=== PATIENT | female | born 1955 | race Caucasian/White ===

== ENCOUNTER → 2017-09-30 09:05 | Outpatient (CLI) | payer BC, SELFPAY ==
--- NOTE | 2017-09-30 | DI.MG.S_ITS ---
BILATERAL DIGITAL SCREENING MAMMOGRAM 3D/2D WITH CAD: 09/30/2017 CLINICAL: Routine screening. Family history of breast cancer. Comparison is made to exams dated: 08/28/2016 mammogram, 08/28/2015 mammogram, and 08/22/2014 mammogram - [facility]. The tissue of both breasts is predominantly fatty. Current study was also evaluated with a Computer Aided Detection (CAD) system. No significant masses, calcifications, or other findings are seen in either breast. There has been no significant interval change. IMPRESSION: NEGATIVE There is no mammographic evidence of malignancy. A 1 year screening mammogram is recommended. This exam was interpreted at Station ID: [id number]. NOTE: For mammograms, a report in lay terms will be sent to the patient. Approximately 15% of breast malignancies will not be visualized mammographically. In the management of a palpable breast mass, a negative mammogram must not discourage biopsy of a clinically suspicious lesion. Electronically Signed By: Steve kelly/isela:09/30/2017 14:48:54 letter sent: Normal Exam ACR BI-RADS Category 1: Negative 3341F
== END ==
PROVIDERS: PCP Family Medicine; Visit Provider Family Medicine
DX: Z12.31 Encounter for screening mammogram for malignant neoplasm of breast (principal); Z80.3 Family history of malignant neoplasm of breast
CPT/HCPCS: 77063; 77067

== ENCOUNTER → 2017-11-16 08:38 | Outpatient (CLI) | payer BC, SELFPAY ==
[2017-11-16 09:22] LABS: Hematocrit 38.2 % (36-46); Hemoglobin 12.5 g/dL (12.0-16.0); Mean Corpuscular HGB Conc 32.8 % (30-36); Mean Corpuscular Hemoglobin 29.3 PG (26-34); Mean Corpuscular Volume 89.1 fL (80-100); Platelet Count 268 X10^3/uL (150-400); Red Blood Cell Count 4.28 X10^6/uL (4.0-5.2); Red Cell Distribution Width 13.5 % (11.6-14.8)
[2017-11-16 09:36] LABS: BUN Creatinine Ratio 24.4 (6-22); Blood Urea Nitrogen 22 mg/dL (7-17); Calcium 9.1 mg/dL (8.4-10.2); Carbon Dioxide 31 mmol/L (22-32); Chloride 103 mmol/L (98-107); Cholesterol 190 mg/dL (140-199); Estimated Glomerular Filt Rate > 60.0 mL/min (>60); Glucose 91 mg/dL (80-110); HDL Cholesterol 50 mg/dL (40-60); HEMOLYSIS < 15 (0-50); LDL Cholesterol Calculated 121 mg/dL (<100); Potassium 3.9 mmol/L (3.4-5.1); Sodium 145 mmol/L (137-145); Triglycerides 94 mg/dL (35-150)
[2017-11-16 10:23] LABS: Vitamin D 25 Hydroxy (D3) 28.6 ng/mL (30.0-100.0)
== END ==
PROVIDERS: PCP Student in an Organized Health Care Education/Training Program; Visit Provider Student in an Organized Health Care Education/Training Program
DX: Z79.899 Other long term (current) drug therapy (principal)
CPT/HCPCS: 36415; 80048; 80061; 82306; 85027

== ENCOUNTER 2018-04-24 19:09 | Emergency (ER) | payer BC, SELFPAY ==
[2018-04-24 19:46] VITALS: BP 126/87; PULSE 81; RESP 18; TEMP 37.3; O2SAT 100; BMI 30.4
--- NOTE | 2018-04-24 20:31 | ED.ABDPAIN ---
HPI - Abdominal Pain <DELICIA Pop - Last Filed: 04/24/18 22:59> General Chief Complaint: Abdominal Pain Stated Complaint: severe abdominal pain and back pain, nauseous Time Seen by Provider: 04/24/18 20:11 Source: patient Mode of arrival: ambulatory Limitations: no limitations History of Present Illness HPI narrative: 62-year-old female with history of hypertension and GERD here for complaint having pain into her abdomen over the past 2 weeks. She states that the pain is worsened over the past couple of days. Pain is to the right upper quadrant area she denies any trauma to the area. No nausea or vomiting. She does have a decreased appetite. She denies any stressors or relievers of her discomfort. She denies any urinary symptoms. Last bowel movement was earlier today and was unremarkable. No flank pain. She does state that the pain sometimes radiates to her back area. MD complaint: abdominal pain Related Data Previous Rx's Medication Instructions Recorded olmesartan 40 1 tab PO DAILY #90 tab 04/22/18 mg-hydrochlorothiazide 25 mg tablet pantoprazole 40 mg tablet,delayed 40 mg PO DAILY #90 tab 04/22/18 release Allergies Allergy/AdvReac Type Severity Reaction Status Date / Time cefuroxime [From Ceftin] Allergy rash, Verified 04/24/18 19:45 irregular heart rhythm Review of Systems <DELICIA Pop - Last Filed: 04/24/18 22:59> Constitutional Denies chills, Denies fever(s), Denies lethargy and Denies weakness Eyes Denies change in vision, Denies eye discharge, Denies irritation and Denies loss of vision ENT Ears, Nose, Mouth, and Throat: Denies throat swelling Cardiovascular Denies chest pain, Denies irregular heart rhythm, Denies lightheadedness, Denies palpitations and Denies orthopnea Respiratory Denies wheezing Gastrointestinal Comments: Right uppe Genitourinary Denies hematuria, Denies flank pain, Denies urinary incontinence and Denies urinary urgency Integumentary/Breasts Denies pruritus, Denies erythema, Denies rash and Denies wounds Neurologic Denies confusion, Denies loss of vision and Denies weakness Psychiatric Denies anxiety, Denies confusion, Denies depression, Denies homicidal ideation and Denies suicidal ideation Endocrine Denies palpitations Hematologic/Lymphatic Denies easy bruising Allergic/Immunologic Denies urticaria, Denies throat swelling and Denies wheezing PFSH <DELICIA Pop - Last Filed: 04/24/18 22:59> Medical History Hypertension (Chronic) Obesity (BMI 30.0-34.9) (Chronic) Perez esophagus (Chronic) Perez's esophagus (Chronic 2016) GERD (gastroesophageal reflux disease) (Chronic 1978) Hypertension (Chronic ~2000) Perez's esophagus (Inactive ~2016) Barretts esophagus (Inactive ~2016) Bladder prolapse (Inactive ~2010) GERD (gastroesophageal reflux disease) (Inactive ~1978) GERD (gastroesophageal reflux disease) (Inactive ~1978) HTN (hypertension) (Inactive) Hypertension (Inactive) Surgical History History of knee replacement (Resolved 05/2016) Hx of foot surgery (Resolved 09/2016) Hx of knee surgery (Resolved 05/2010) Hx of oophorectomy (Resolved 01/2011) H/O foot surgery (Inactive ~2016) History of bladder surgery (Inactive ~01/2011) History of knee replacement (Inactive ~05/2016) History of knee replacement (Inactive ~2016) History of knee surgery (Inactive ~05/2010) Hx of foot surgery (Inactive ~09/2016) Family History Father Heart disease Hypertension Mother Cancer Hypertension Social History marital status: household members: spouse education level: high school travel history: recurrent seatbelt use: always water heater temp set < 120 deg: Yes working smoke detector in home: Yes fire extinguisher in home: Yes carbon monox detector in home: Yes firearms in home: Yes do you feel safe at home: Yes Smoking Status: Never smoker alcohol intake: current (Rare/occasional) substance use type: does not use well-balanced diet: daily or most days daily servings fruits/ve-4 caffeine: Yes eating out: 1-3 times/week Type(s) of exercise: walking and additional (yard work) frequency: 1-2 times per week duration: 45-60 minutes/day Family History Father Heart disease Hypertension Mother Cancer Hypertension Social History marital status: household members: spouse education level: high school travel history: recurrent seatbelt use: always water heater temp set < 120 deg: Yes working smoke detector in home: Yes fire extinguisher in home: Yes carbon monox detector in home: Yes firearms in home: Yes do you feel safe at home: Yes Smoking Status: Never smoker alcohol intake: current (Rare/occasional) substance use type: does not use well-balanced diet: daily or most days daily servings fruits/ve-4 caffeine: Yes eating out: 1-3 times/week Type(s) of exercise: walking and additional (yard work) frequency: 1-2 times per week duration: 45-60 minutes/day Exam <DELICIA Pop - Last Filed: 04/24/18 22:59> Initial Vital Signs Initial Vital Signs: Vital Signs Temperature 99.1 F 04/24/18 19:46 Pulse Rate 81 04/24/18 19:46 Respiratory Rate 18 04/24/18 19:46 Blood Pressure 126/87 04/24/18 19:46 Pulse Oximetry 100 04/24/18 19:46 Const General: cooperative and well developed Nutritional Appearance: well nourished Orientation: alert, awake, oriented x3 and not confused HENMT Mouth: oral mucosae normal and moist mucous membranes Eyes Conjunctivae: conjunctivae normal Sclera: sclerae normal Pupils: PERRL EOM: EOM intact bilaterally Cardio Rate: regular rate Rhythm: regular rhythm Heart Sounds: no click, no gallops, no murmurs and no rubs Pulses: normal peripheral pulses Skin General: no rashes or lesions noted, No jaundice and No petechiae Neuro General: alert, oriented x3, gait normal and no focal motor deficits Speech: speech normal <Amelie Bowles DO - Last Filed: 04/25/18 03:02> Initial Vital Signs Initial Vital Signs: Vital Signs Temperature 99.1 F 04/24/18 19:46 Pulse Rate 81 04/24/18 19:46 Respiratory Rate 18 04/24/18 19:46 Blood Pressure 126/87 04/24/18 19:46 Pulse Oximetry 100 04/24/18 19:46 Course <DELICIA Pop - Last Filed: 04/24/18 22:59> Orders Ordered: ED Orders 04/24/18 20:38 US abdomen complete Stat 04/24/18 21:04 Complete Blood Count AUTO DIFF Stat Comprehensive Metabolic Panel Stat Lipase Stat 04/24/18 21:23 CT abdomen pelvis w con Stat Discontinued Medications Sodium Chloride (Normal Saline 0.9%) 1,000 mls @ 1,000 mls/hr IV BOLUS ONE Stop: 04/24/18 21:37 Last Infusion: 04/24/18 22:55 Dose: 0 mls/hr Admin: 04/24/18 21:01 Dose: 1,000 mls/hr Vital Signs - 8 hr 04/24/18 19:46 04/24/18 21:10 04/24/18 21:27 Temperature 99.1 F Pulse Rate 81 85 78 Respiratory Rate 18 17 21 Blood Pressure 126/87 Blood Pressure [Right Arm] 128/79 Pulse Oximetry 100 96 100 04/24/18 23:18 Temperature 97.8 F Pulse Rate 77 Respiratory Rate 16 Blood Pressure 132/80 Blood Pressure [Right Arm] Pulse Oximetry 97 <Amelie Bowles DO - Last Filed: 04/25/18 03:02> Orders Ordered: ED Orders 04/24/18 20:38 US abdomen complete Stat 04/24/18 21:04 Complete Blood Count AUTO DIFF Stat Comprehensive Metabolic Panel Stat Lipase Stat 04/24/18 21:23 CT abdomen pelvis w con Stat Discontinued Medications Sodium Chloride (Normal Saline 0.9%) 1,000 mls @ 1,000 mls/hr IV BOLUS ONE Stop: 04/24/18 21:37 Last Infusion: 04/24/18 22:55 Dose: 0 mls/hr Admin: 04/24/18 21:01 Dose: 1,000 mls/hr Vital Signs - 8 hr 04/24/18 19:46 04/24/18 21:10 04/24/18 21:27 Temperature 99.1 F Pulse Rate 81 85 78 Respiratory Rate 18 17 21 Blood Pressure 126/87 Blood Pressure [Right Arm] 128/79 Pulse Oximetry 100 96 100 04/24/18 23:18 Temperature 97.8 F Pulse Rate 77 Respiratory Rate 16 Blood Pressure 132/80 Blood Pressure [Right Arm] Pulse Oximetry 97 MDM - Abdominal Pain <DELICIA Pop - Last Filed: 04/24/18 22:59> Lab Data Result diagrams: 04/24/18 21:04 04/24/18 21:04 Lab Results 04/24/18 04/24/18 Range/Units 21:04 21:04 WBC 8.5 (4.5-11.0) X10^3/uL RBC 4.39 (4.0-5.2) X10^6/uL Hgb 12.7 (12.0-16.0) g/dL Hct 38.9 (36-46) % MCV 88.6 (80-100) fL MCH 29.0 (26-34) PG MCHC 32.7 (30-36) % RDW 13.2 (11.6-14.8) % Plt Count 297 (150-400) X10^3/uL Neut % (Auto) 62.7 (50-75) % Lymph % (Auto) 26.0 (25-40) % Garden % (Auto) 9.6 (3-14) % Eos % (Auto) 1.2 L (2-4) % Baso % (Auto) 0.5 (0-2) % Neut # (Auto) 5300 (4720-5863) /uL Lymph # (Auto) 2200 (5981-6573) /uL Garden # (Auto) 800 (0-900) /uL Eos # (Auto) 100 (0-450) /uL Baso # (Auto) 0 (0-100) /uL Sodium 141 (137-145) mmol/L Potassium 3.9 (3.4-5.1) mmol/L Chloride 101 (98-107) mmol/L Carbon Dioxide 30 (22-32) mmol/L BUN 23 H (7-17) mg/dL Creatinine 0.90 (0.52-1.04) mg/dL Estimated GFR > 60.0 (>60) mL/min BUN/Creatinine Ratio 25.6 H (6-22) Glucose 102 (80-110) mg/dL Calcium 9.7 (8.4-10.2) mg/dL Total Bilirubin 0.3 (0.2-1.3) mg/dL AST 26 (14-36) IU/L ALT 27 (9-52) IU/L Alkaline Phosphatase 76 (38-126) U/L Total Protein 8.0 (6.3-8.2) g/dL Albumin 4.5 (3.5-5.0) g/dL Globulin 3.5 (1.7-4.1) g/dL Albumin/Globulin Ratio 1.3 (1.0-2.8) Lipase 94 (23-300) U/L Point of care testing: Urine Dip Bedside Urine Glucose Negative Bedside Urine Bilirubin - Negative Bedside Urine Ketone - Negative Urine Specific Elizabeth 1.010 Bedside Urine Occult Blood - Negative Bedside Urine pH 6.0 Bedside Urine Protein - Negative Bedside Urine Urobilinogen - Negative Bedside Urine Nitrite - Negative Bedside Urine Leukocytes - Negative Esterase Imaging Data US - abdomen: Radiologist's impression: [address] [place] [id number] Ultrasound Report Signed Patient: Trini Diaz LMR#: [id number] : 4Acct:[id number] Age/Sex: 62 / FDate of Service: 04/24/18 Loc: ED Accession Number: [id number] Procedure: US abdomen complete Ordering Provider: Nick Haney PROCEDURE: US ABDOMEN COMPLETE INDICATIONS: RIGHT UPPER QUADRANT PAIN TECHNIQUE: Real-time scanning was performed of the abdominal and retroperitoneal organs, with image documentation. COMPARISON: None. FINDINGS: Liver: Liver is normal in size and homogeneous in echotexture. Gallbladder: Within normal limits Biliary ducts: Intrahepatic bile ducts are non-dilated. Extrahepatic bile duct caliber measures 3.7 mm. Normal is 6-7 mm or less in diameter, or 10 mm or less post-cholecystectomy. Pancreas: Visualized portions of the pancreas are sonographically normal. Spleen: Spleen is normal in size and homogeneous in echotexture. Kidneys: Kidneys are normal in size and echotexture. Right kidney measures 10.3 cm long; left kidney measures 10.0 cm long. No hydronephrosis. 7 mm calculus within the inferior pole of the right kidney. No solid masses. Aorta: Visualized aorta is normal in caliber at less than 3 cm. Iliacs: Proximal common iliac arteries are normal in caliber at less than 2.5 cm. IVC: Intrahepatic inferior vena cava is patent. Miscellaneous: No free abdominal fluid. IMPRESSION: 1. No acute process. 2. Nonobstructing right renal calculus. Dictated by: Rosa Singh M.D. on 04/24/2018 at 21:47 Approved by: Rosa Singh M.D. on 04/24/2018 at 21:48 MDM Narrative Medical decision making narrative: CBC was obtained and was unremarkable. chemistry panel was also obtained and was also Unremarkable. Lipase was normal. Abdominal ultrasound was obtained and was negative for any acute findings. Urinalysis Is negative for urinary tract infection or blood. CT the abdomen was obtained and plan number reason shows no significant abnormalities. Signs is presents as abdominal wall pain. [id number] Tylenol as needed for any discomfort. Follow up with primary care provider. Return emergency room for worsening symptoms. <Amelie Bowles DO - Last Filed: 04/25/18 03:02> Lab Data Lab Results 04/24/18 04/24/18 Range/Units 21:04 21:04 WBC 8.5 (4.5-11.0) X10^3/uL RBC 4.39 (4.0-5.2) X10^6/uL Hgb 12.7 (12.0-16.0) g/dL Hct 38.9 (36-46) % MCV 88.6 (80-100) fL MCH 29.0 (26-34) PG MCHC 32.7 (30-36) % RDW 13.2 (11.6-14.8) % Plt Count 297 (150-400) X10^3/uL Neut % (Auto) 62.7 (50-75) % Lymph % (Auto) 26.0 (25-40) % Garden % (Auto) 9.6 (3-14) % Eos % (Auto) 1.2 L (2-4) % Baso % (Auto) 0.5 (0-2) % Neut # (Auto) 5300 (4541-6095) /uL Lymph # (Auto) 2200 (6735-8407) /uL Garden # (Auto) 800 (0-900) /uL Eos # (Auto) 100 (0-450) /uL Baso # (Auto) 0 (0-100) /uL Sodium 141 (137-145) mmol/L Potassium 3.9 (3.4-5.1) mmol/L Chloride 101 (98-107) mmol/L Carbon Dioxide 30 (22-32) mmol/L BUN 23 H (7-17) mg/dL Creatinine 0.90 (0.52-1.04) mg/dL Estimated GFR > 60.0 (>60) mL/min BUN/Creatinine Ratio 25.6 H (6-22) Glucose 102 (80-110) mg/dL Calcium 9.7 (8.4-10.2) mg/dL Total Bilirubin 0.3 (0.2-1.3) mg/dL AST 26 (14-36) IU/L ALT 27 (9-52) IU/L Alkaline Phosphatase 76 (38-126) U/L Total Protein 8.0 (6.3-8.2) g/dL Albumin 4.5 (3.5-5.0) g/dL Globulin 3.5 (1.7-4.1) g/dL Albumin/Globulin Ratio 1.3 (1.0-2.8) Lipase 94 (23-300) U/L Point of care testing: Urine Dip Bedside Urine Glucose Negative Bedside Urine Bilirubin - Negative Bedside Urine Ketone - Negative Urine Specific Elizabeth 1.010 Bedside Urine Occult Blood - Negative Bedside Urine pH 6.0 Bedside Urine Protein - Negative Bedside Urine Urobilinogen - Negative Bedside Urine Nitrite - Negative Bedside Urine Leukocytes - Negative Esterase Discharge Plan Departure Patient Disposition: Home Clinical Impression: Abdominal wall pain Discharge Date/Time: 04/24/18 23:19 Interventions: ED Discharge Assessment Last Done: 04/24/18 23:18 Instructions: DI for Abdominal Pain-Adult Activity Restrictions/Additional Instructions: laboratory results and imaging today were unremarkable. Signs and symptoms presents as abdominal wall pain. Use [id number] Tylenol as needed for any discomfort. Rest area. Follow up with primary care provider. Return emergency room for worsening symptoms. Prescriptions: No Action pantoprazole 40 mg tablet,delayed release (DR/EC) 40 mg PO DAILY Qty: 90 RF: 3 olmesartan-hydrochlorothiazide [Benicar HCT] 40-25 mg tablet 1 tab PO DAILY Qty: 90 RF: 3 Referrals: Dudley Bass MD [Primary Care Provider] - <Amelie Bowles DO - Last Filed: 04/25/18 03:02> Cosign ED Attending Cosignature Attestation: I was immediately available in the department for consultation. Documentation has been reviewed. I agree with assessment and plan.
--- NOTE | 2018-04-24 20:38 | DI.US.S_ITS ---
PROCEDURE: US ABDOMEN COMPLETE INDICATIONS: RIGHT UPPER QUADRANT PAIN TECHNIQUE: Real-time scanning was performed of the abdominal and retroperitoneal organs, with image documentation. COMPARISON: None. FINDINGS: Liver: Liver is normal in size and homogeneous in echotexture. Gallbladder: Within normal limits Biliary ducts: Intrahepatic bile ducts are non-dilated. Extrahepatic bile duct caliber measures 3.7 mm. Normal is 6-7 mm or less in diameter, or 10 mm or less post-cholecystectomy. Pancreas: Visualized portions of the pancreas are sonographically normal. Spleen: Spleen is normal in size and homogeneous in echotexture. Kidneys: Kidneys are normal in size and echotexture. Right kidney measures 10.3 cm long; left kidney measures 10.0 cm long. No hydronephrosis. 7 mm calculus within the inferior pole of the right kidney. No solid masses. Aorta: Visualized aorta is normal in caliber at less than 3 cm. Iliacs: Proximal common iliac arteries are normal in caliber at less than 2.5 cm. IVC: Intrahepatic inferior vena cava is patent. Miscellaneous: No free abdominal fluid. IMPRESSION: 1. No acute process. 2. Nonobstructing right renal calculus. Dictated by: Rosa Singh M.D. on 04/24/2018 at 21:47 Approved by: Rosa Singh M.D. on 04/24/2018 at 21:48
[2018-04-24] MEDS: SODIUM CHLORIDE 0.9% 1,000 ML 1000 ML IV (21:01)
[2018-04-24 21:09] LABS: Add Manual Diff / Slide Review NO; Basophils Absolute Auto 0 /uL (0-100); Basophils Percent Auto 0.5 % (0-2); Eosinophils Absolute Auto 100 /uL (0-450); Eosinophils Percent Auto 1.2 % (2-4); Hematocrit 38.9 % (36-46); Hemoglobin 12.7 g/dL (12.0-16.0); Lymphocytes Absolute Auto 2200 /uL (1100-4500); Mean Corpuscular HGB Conc 32.7 % (30-36); Mean Corpuscular Volume 88.6 fL (80-100); Monocytes Absolute Auto 800 /uL (0-900); Monocytes Percent Auto 9.6 % (3-14); Neutrophils Absolute Auto 5300 /uL (1500-7000); Neutrophils Percent Auto 62.7 % (50-75); Platelet Count 297 X10^3/uL (150-400); Red Blood Cell Count 4.39 X10^6/uL (4.0-5.2); Red Cell Distribution Width 13.2 % (11.6-14.8); White Blood Cell Count 8.5 X10^3/uL (4.5-11.0)
[2018-04-24 21:10] VITALS: PULSE 85; RESP 17; O2SAT 96
[2018-04-24 21:16] LABS: Alanine Aminotransferase 27 IU/L (9-52); Albumin 4.5 g/dL (3.5-5.0); Albumin Globulin Ratio 1.3 (1.0-2.8); Alkaline Phosphatase 76 U/L (38-126); Aspartate Aminotransferase 26 IU/L (14-36); BUN Creatinine Ratio 25.6 (6-22); Bilirubin Total 0.3 mg/dL (0.2-1.3); Blood Urea Nitrogen 23 mg/dL (7-17); Calcium 9.7 mg/dL (8.4-10.2); Carbon Dioxide 30 mmol/L (22-32); Chloride 101 mmol/L (98-107); Estimated Glomerular Filt Rate > 60.0 mL/min (>60); Globulin 3.5 g/dL (1.7-4.1); Glucose 102 mg/dL (80-110); HEMOLYSIS < 15 (0-50); Lipase 94 U/L (23-300); Potassium 3.9 mmol/L (3.4-5.1); Sodium 141 mmol/L (137-145)
--- NOTE | 2018-04-24 21:23 | DI.CT.S_ITS ---
PROCEDURE: CT ABDOMEN PELVIS W CON INDICATIONS: Right upper quadrant pain TECHNIQUE: After the administration of intravenous contrast, 5 mm thick sections acquired from the diaphragm to the symphysis. 5 mm coronal and sagittal reformats were acquired. For radiation dose reduction, the following was used: automated exposure control, adjustment of mA and/or kV according to patient size. COMPARISON: [facility], , US ABDOMEN COMPLETE, 04/24/2018, 21:09. FINDINGS: Image quality: Excellent. ABDOMEN: Lung bases: Lung bases are clear. Heart size is normal. Small hiatal hernia. Solid organs: Liver is normal in size and enhancement. Gallbladder is normal. Biliary system is non dilated. Pancreas enhances normally. Spleen is normal in size and enhancement. No adrenal nodules. Kidneys demonstrate normal size and enhancement, without hydronephrosis. Peritoneum and bowel: Bowel loops demonstrate normal wall thickness and caliber. There are numerous scattered colonic diverticula in sigmoid colon. No free fluid or air. Nodes and vessels: No retroperitoneal or mesenteric adenopathy by size criteria. Aorta and inferior vena cava are normal in size. Miscellaneous: No ventral hernias. PELVIS: Genitourinary: Bladder wall thickness is normal. Uterus is normal. No adnexal mass. No pathologic free fluid. Miscellaneous: No inguinal hernias or adenopathy. Bones: No suspicious bony lesions. No vertebral body compression fractures. IMPRESSION: 1. No acute intra-abdominal process. 2. Small hiatal hernia. 3. Sigmoid diverticulosis without acute diverticulitis. No significant discrepancy with the information technology security manager radiology preliminary report. Dictated by: Neo Terrazas M.D. on 04/25/2018 at 7:54 Approved by: Neo Terrazas M.D. on 04/25/2018 at 17:48
[2018-04-24 21:27] VITALS: BP 128/79; PULSE 78; RESP 21; O2SAT 100
--- NOTE | 2018-04-24 22:39 | ED_ITS ---
HPI - Abdominal Pain <DELICIA Pop - Last Filed: 04/24/18 22:59> General Chief Complaint: Abdominal Pain Stated Complaint: severe abdominal pain and back pain, nauseous Time Seen by Provider: 04/24/18 20:11 Source: patient Mode of arrival: ambulatory Limitations: no limitations History of Present Illness HPI narrative: 62-year-old female with history of hypertension and GERD here for complaint having pain into her abdomen over the past 2 weeks. She states that the pain is worsened over the past couple of days. Pain is to the right upper quadrant area she denies any trauma to the area. No nausea or vomiting. She does have a decreased appetite. She denies any stressors or relievers of her discomfort. She denies any urinary symptoms. Last bowel movement was earlier today and was unremarkable. No flank pain. She does state that the pain sometimes radiates to her back area. MD complaint: abdominal pain Related Data Previous Rx's Medication Instructions Recorded olmesartan 40 1 tab PO DAILY #90 tab 04/22/18 mg-hydrochlorothiazide 25 mg tablet pantoprazole 40 mg tablet,delayed 40 mg PO DAILY #90 tab 04/22/18 release Allergies Allergy/AdvReac Type Severity Reaction Status Date / Time cefuroxime [From Ceftin] Allergy rash, Verified 04/24/18 19:45 irregular heart rhythm Review of Systems <DELICIA Pop - Last Filed: 04/24/18 22:59> Constitutional Denies chills, Denies fever(s), Denies lethargy and Denies weakness Eyes Denies change in vision, Denies eye discharge, Denies irritation and Denies loss of vision ENT Ears, Nose, Mouth, and Throat: Denies throat swelling Cardiovascular Denies chest pain, Denies irregular heart rhythm, Denies lightheadedness, Denies palpitations and Denies orthopnea Respiratory Denies wheezing Gastrointestinal Comments: Right uppe Genitourinary Denies hematuria, Denies flank pain, Denies urinary incontinence and Denies urinary urgency Integumentary/Breasts Denies pruritus, Denies erythema, Denies rash and Denies wounds Neurologic Denies confusion, Denies loss of vision and Denies weakness Psychiatric Denies anxiety, Denies confusion, Denies depression, Denies homicidal ideation and Denies suicidal ideation Endocrine Denies palpitations Hematologic/Lymphatic Denies easy bruising Allergic/Immunologic Denies urticaria, Denies throat swelling and Denies wheezing PFSH <DELICIA Pop - Last Filed: 04/24/18 22:59> Medical History Hypertension (Chronic) Obesity (BMI 30.0-34.9) (Chronic) Perez esophagus (Chronic) Perez's esophagus (Chronic 2016) GERD (gastroesophageal reflux disease) (Chronic 1978) Hypertension (Chronic ~2000) Perez's esophagus (Inactive ~2016) Barretts esophagus (Inactive ~2016) Bladder prolapse (Inactive ~2010) GERD (gastroesophageal reflux disease) (Inactive ~1978) GERD (gastroesophageal reflux disease) (Inactive ~1978) HTN (hypertension) (Inactive) Hypertension (Inactive) Surgical History History of knee replacement (Resolved 05/2016) Hx of foot surgery (Resolved 09/2016) Hx of knee surgery (Resolved 05/2010) Hx of oophorectomy (Resolved 01/2011) H/O foot surgery (Inactive ~2016) History of bladder surgery (Inactive ~01/2011) History of knee replacement (Inactive ~05/2016) History of knee replacement (Inactive ~2016) History of knee surgery (Inactive ~05/2010) Hx of foot surgery (Inactive ~09/2016) Family History Father Heart disease Hypertension Mother Cancer Hypertension Social History marital status: household members: spouse education level: high school travel history: recurrent seatbelt use: always water heater temp set < 120 deg: Yes working smoke detector in home: Yes fire extinguisher in home: Yes carbon monox detector in home: Yes firearms in home: Yes do you feel safe at home: Yes Smoking Status: Never smoker alcohol intake: current (Rare/occasional) substance use type: does not use well-balanced diet: daily or most days daily servings fruits/ve-4 caffeine: Yes eating out: 1-3 times/week Type(s) of exercise: walking and additional (yard work) frequency: 1-2 times per week duration: 45-60 minutes/day Family History Father Heart disease Hypertension Mother Cancer Hypertension Social History marital status: household members: spouse education level: high school travel history: recurrent seatbelt use: always water heater temp set < 120 deg: Yes working smoke detector in home: Yes fire extinguisher in home: Yes carbon monox detector in home: Yes firearms in home: Yes do you feel safe at home: Yes Smoking Status: Never smoker alcohol intake: current (Rare/occasional) substance use type: does not use well-balanced diet: daily or most days daily servings fruits/ve-4 caffeine: Yes eating out: 1-3 times/week Type(s) of exercise: walking and additional (yard work) frequency: 1-2 times per week duration: 45-60 minutes/day Exam <DELICIA Pop - Last Filed: 04/24/18 22:59> Initial Vital Signs Initial Vital Signs: Vital Signs Temperature 99.1 F 04/24/18 19:46 Pulse Rate 81 04/24/18 19:46 Respiratory Rate 18 04/24/18 19:46 Blood Pressure 126/87 04/24/18 19:46 Pulse Oximetry 100 04/24/18 19:46 Const General: cooperative and well developed Nutritional Appearance: well nourished Orientation: alert, awake, oriented x3 and not confused HENMT Mouth: oral mucosae normal and moist mucous membranes Eyes Conjunctivae: conjunctivae normal Sclera: sclerae normal Pupils: PERRL EOM: EOM intact bilaterally Cardio Rate: regular rate Rhythm: regular rhythm Heart Sounds: no click, no gallops, no murmurs and no rubs Pulses: normal peripheral pulses Skin General: no rashes or lesions noted, No jaundice and No petechiae Neuro General: alert, oriented x3, gait normal and no focal motor deficits Speech: speech normal <Amelie Bowles DO - Last Filed: 04/25/18 03:02> Initial Vital Signs Initial Vital Signs: Vital Signs Temperature 99.1 F 04/24/18 19:46 Pulse Rate 81 04/24/18 19:46 Respiratory Rate 18 04/24/18 19:46 Blood Pressure 126/87 04/24/18 19:46 Pulse Oximetry 100 04/24/18 19:46 Course <DELICIA Pop - Last Filed: 04/24/18 22:59> Orders Ordered: ED Orders 04/24/18 20:38 US abdomen complete Stat 04/24/18 21:04 Complete Blood Count AUTO DIFF Stat Comprehensive Metabolic Panel Stat Lipase Stat 04/24/18 21:23 CT abdomen pelvis w con Stat Discontinued Medications Sodium Chloride (Normal Saline 0.9%) 1,000 mls @ 1,000 mls/hr IV BOLUS ONE Stop: 04/24/18 21:37 Last Infusion: 04/24/18 22:55 Dose: 0 mls/hr Admin: 04/24/18 21:01 Dose: 1,000 mls/hr Vital Signs - 8 hr 04/24/18 19:46 04/24/18 21:10 04/24/18 21:27 Temperature 99.1 F Pulse Rate 81 85 78 Respiratory Rate 18 17 21 Blood Pressure 126/87 Blood Pressure [Right Arm] 128/79 Pulse Oximetry 100 96 100 04/24/18 23:18 Temperature 97.8 F Pulse Rate 77 Respiratory Rate 16 Blood Pressure 132/80 Blood Pressure [Right Arm] Pulse Oximetry 97 <Amelie Bowles DO - Last Filed: 04/25/18 03:02> Orders Ordered: ED Orders 04/24/18 20:38 US abdomen complete Stat 04/24/18 21:04 Complete Blood Count AUTO DIFF Stat Comprehensive Metabolic Panel Stat Lipase Stat 04/24/18 21:23 CT abdomen pelvis w con Stat Discontinued Medications Sodium Chloride (Normal Saline 0.9%) 1,000 mls @ 1,000 mls/hr IV BOLUS ONE Stop: 04/24/18 21:37 Last Infusion: 04/24/18 22:55 Dose: 0 mls/hr Admin: 04/24/18 21:01 Dose: 1,000 mls/hr Vital Signs - 8 hr 04/24/18 19:46 04/24/18 21:10 04/24/18 21:27 Temperature 99.1 F Pulse Rate 81 85 78 Respiratory Rate 18 17 21 Blood Pressure 126/87 Blood Pressure [Right Arm] 128/79 Pulse Oximetry 100 96 100 04/24/18 23:18 Temperature 97.8 F Pulse Rate 77 Respiratory Rate 16 Blood Pressure 132/80 Blood Pressure [Right Arm] Pulse Oximetry 97 MDM - Abdominal Pain <DELICIA Pop - Last Filed: 04/24/18 22:59> Lab Data Result diagrams: 04/24/18 21:04 04/24/18 21:04 Lab Results 04/24/18 04/24/18 Range/Units 21:04 21:04 WBC 8.5 (4.5-11.0) X10^3/uL RBC 4.39 (4.0-5.2) X10^6/uL Hgb 12.7 (12.0-16.0) g/dL Hct 38.9 (36-46) % MCV 88.6 (80-100) fL MCH 29.0 (26-34) PG MCHC 32.7 (30-36) % RDW 13.2 (11.6-14.8) % Plt Count 297 (150-400) X10^3/uL Neut % (Auto) 62.7 (50-75) % Lymph % (Auto) 26.0 (25-40) % Wilbarger % (Auto) 9.6 (3-14) % Eos % (Auto) 1.2 L (2-4) % Baso % (Auto) 0.5 (0-2) % Neut # (Auto) 5300 (7058-6795) /uL Lymph # (Auto) 2200 (5695-0272) /uL Wilbarger # (Auto) 800 (0-900) /uL Eos # (Auto) 100 (0-450) /uL Baso # (Auto) 0 (0-100) /uL Sodium 141 (137-145) mmol/L Potassium 3.9 (3.4-5.1) mmol/L Chloride 101 (98-107) mmol/L Carbon Dioxide 30 (22-32) mmol/L BUN 23 H (7-17) mg/dL Creatinine 0.90 (0.52-1.04) mg/dL Estimated GFR > 60.0 (>60) mL/min BUN/Creatinine Ratio 25.6 H (6-22) Glucose 102 (80-110) mg/dL Calcium 9.7 (8.4-10.2) mg/dL Total Bilirubin 0.3 (0.2-1.3) mg/dL AST 26 (14-36) IU/L ALT 27 (9-52) IU/L Alkaline Phosphatase 76 (38-126) U/L Total Protein 8.0 (6.3-8.2) g/dL Albumin 4.5 (3.5-5.0) g/dL Globulin 3.5 (1.7-4.1) g/dL Albumin/Globulin Ratio 1.3 (1.0-2.8) Lipase 94 (23-300) U/L Point of care testing: Urine Dip Bedside Urine Glucose Negative Bedside Urine Bilirubin - Negative Bedside Urine Ketone - Negative Urine Specific Bowie 1.010 Bedside Urine Occult Blood - Negative Bedside Urine pH 6.0 Bedside Urine Protein - Negative Bedside Urine Urobilinogen - Negative Bedside Urine Nitrite - Negative Bedside Urine Leukocytes - Negative Esterase Imaging Data US - abdomen: Radiologist's impression: [address] [place] [id number] Ultrasound Report Signed Patient: Trini Diaz LMR#: [id number] : 4Acct:[id number] Age/Sex: 62 / FDate of Service: 04/24/18 Loc: ED Accession Number: [id number] Procedure: US abdomen complete Ordering Provider: Nick Haney PROCEDURE: US ABDOMEN COMPLETE INDICATIONS: RIGHT UPPER QUADRANT PAIN TECHNIQUE: Real-time scanning was performed of the abdominal and retroperitoneal organs, with image documentation. COMPARISON: None. FINDINGS: Liver: Liver is normal in size and homogeneous in echotexture. Gallbladder: Within normal limits Biliary ducts: Intrahepatic bile ducts are non-dilated. Extrahepatic bile duct caliber measures 3.7 mm. Normal is 6-7 mm or less in diameter, or 10 mm or less post-cholecystectomy. Pancreas: Visualized portions of the pancreas are sonographically normal. Spleen: Spleen is normal in size and homogeneous in echotexture. Kidneys: Kidneys are normal in size and echotexture. Right kidney measures 10.3 cm long; left kidney measures 10.0 cm long. No hydronephrosis. 7 mm calculus within the inferior pole of the right kidney. No solid masses. Aorta: Visualized aorta is normal in caliber at less than 3 cm. Iliacs: Proximal common iliac arteries are normal in caliber at less than 2.5 cm. IVC: Intrahepatic inferior vena cava is patent. Miscellaneous: No free abdominal fluid. IMPRESSION: 1. No acute process. 2. Nonobstructing right renal calculus. Dictated by: Rosa Singh M.D. on 04/24/2018 at 21:47 Approved by: Rosa Singh M.D. on 04/24/2018 at 21:48 MDM Narrative Medical decision making narrative: CBC was obtained and was unremarkable. chemistry panel was also obtained and was also Unremarkable. Lipase was normal. Abdominal ultrasound was obtained and was negative for any acute findings. Urinalysis Is negative for urinary tract infection or blood. CT the abdomen was obtained and plan number reason shows no significant abnormalities. Signs is presents as abdominal wall pain. [id number] Tylenol as needed for any discomfort. Follow up with primary care provider. Return emergency room for worsening symptoms. <Amelie Bowles DO - Last Filed: 04/25/18 03:02> Lab Data Lab Results 04/24/18 04/24/18 Range/Units 21:04 21:04 WBC 8.5 (4.5-11.0) X10^3/uL RBC 4.39 (4.0-5.2) X10^6/uL Hgb 12.7 (12.0-16.0) g/dL Hct 38.9 (36-46) % MCV 88.6 (80-100) fL MCH 29.0 (26-34) PG MCHC 32.7 (30-36) % RDW 13.2 (11.6-14.8) % Plt Count 297 (150-400) X10^3/uL Neut % (Auto) 62.7 (50-75) % Lymph % (Auto) 26.0 (25-40) % Wilbarger % (Auto) 9.6 (3-14) % Eos % (Auto) 1.2 L (2-4) % Baso % (Auto) 0.5 (0-2) % Neut # (Auto) 5300 (7827-6778) /uL Lymph # (Auto) 2200 (9414-8156) /uL Wilbarger # (Auto) 800 (0-900) /uL Eos # (Auto) 100 (0-450) /uL Baso # (Auto) 0 (0-100) /uL Sodium 141 (137-145) mmol/L Potassium 3.9 (3.4-5.1) mmol/L Chloride 101 (98-107) mmol/L Carbon Dioxide 30 (22-32) mmol/L BUN 23 H (7-17) mg/dL Creatinine 0.90 (0.52-1.04) mg/dL Estimated GFR > 60.0 (>60) mL/min BUN/Creatinine Ratio 25.6 H (6-22) Glucose 102 (80-110) mg/dL Calcium 9.7 (8.4-10.2) mg/dL Total Bilirubin 0.3 (0.2-1.3) mg/dL AST 26 (14-36) IU/L ALT 27 (9-52) IU/L Alkaline Phosphatase 76 (38-126) U/L Total Protein 8.0 (6.3-8.2) g/dL Albumin 4.5 (3.5-5.0) g/dL Globulin 3.5 (1.7-4.1) g/dL Albumin/Globulin Ratio 1.3 (1.0-2.8) Lipase 94 (23-300) U/L Point of care testing: Urine Dip Bedside Urine Glucose Negative Bedside Urine Bilirubin - Negative Bedside Urine Ketone - Negative Urine Specific Bowie 1.010 Bedside Urine Occult Blood - Negative Bedside Urine pH 6.0 Bedside Urine Protein - Negative Bedside Urine Urobilinogen - Negative Bedside Urine Nitrite - Negative Bedside Urine Leukocytes - Negative Esterase Discharge Plan Departure Patient Disposition: Home Clinical Impression: Abdominal wall pain Discharge Date/Time: 04/24/18 23:19 Interventions: ED Discharge Assessment Last Done: 04/24/18 23:18 Instructions: DI for Abdominal Pain-Adult Activity Restrictions/Additional Instructions: laboratory results and imaging today were unremarkable. Signs and symptoms presents as abdominal wall pain. Use [id number] Tylenol as needed for any discomfort. Rest area. Follow up with primary care provider. Return emergency room for worsening symptoms. Prescriptions: No Action pantoprazole 40 mg tablet,delayed release (DR/EC) 40 mg PO DAILY Qty: 90 RF: 3 olmesartan-hydrochlorothiazide [Benicar HCT] 40-25 mg tablet 1 tab PO DAILY Qty: 90 RF: 3 Referrals: Dudley Bass MD [Primary Care Provider] - <Amelie Bowles DO - Last Filed: 04/25/18 03:02> Cosign ED Attending Cosignature Attestation: I was immediately available in the depa rtment for consultation. Documentation has been reviewed. I agree with assessment and plan.
[2018-04-24 23:18] VITALS: BP 132/80; PULSE 77; RESP 16; TEMP 36.6; O2SAT 97
== END 2018-04-24 23:19 | disposition home or self-care (01) ==
PROVIDERS: Emergency Provider Nurse Practitioner Family; PCP Student in an Organized Health Care Education/Training Program
DX: R10.9 Unspecified abdominal pain (principal)
CPT/HCPCS: 36591; 74177; 76700; 80053; 81003; 83690; 85025; 96360; 96361; 99283; 99285; Q9967

== ENCOUNTER → 2018-10-03 10:06 | Outpatient (CLI) | payer OTHER, SELFPAY ==
--- NOTE | 2018-10-03 10:10 | DI.MG.S_ITS ---
BILATERAL DIGITAL SCREENING MAMMOGRAM 3D/2D WITH CAD: 10/03/2018 CLINICAL: Routine screening. Family history of breast cancer. Comparison is made to exams dated: 09/30/2017 mammogram - [facility], 08/28/2016 mammogram, and 08/28/2015 mammogram - [facility]. The tissue of both breasts is predominantly fatty. Current study was also evaluated with a Computer Aided Detection (CAD) system. No significant masses, calcifications, or other findings are seen in either breast. There has been no significant interval change. IMPRESSION: NEGATIVE There is no mammographic evidence of malignancy. A 1 year screening mammogram is recommended. This exam was interpreted at Station ID: [id number]. NOTE: For mammograms, a report in lay terms will be sent to the patient. Approximately 15% of breast malignancies will not be visualized mammographically. In the management of a palpable breast mass, a negative mammogram must not discourage biopsy of a clinically suspicious lesion. Electronically Signed By: Domonique taylor/isela:10/03/2018 11:43:45 letter sent: Normal Exam ACR BI-RADS Category 1: Negative 3341F
== END ==
PROVIDERS: PCP Student in an Organized Health Care Education/Training Program; Visit Provider Student in an Organized Health Care Education/Training Program
DX: Z12.31 Encounter for screening mammogram for malignant neoplasm of breast (principal); Z80.3 Family history of malignant neoplasm of breast; Z78.0 Asymptomatic menopausal state; Z91.89 Other specified personal risk factors, not elsewhere classified
CPT/HCPCS: 77063; 77067; 77080

== ENCOUNTER → 2019-08-03 09:25 | Outpatient (CLI) | payer MEDICARE, OTHER, SELFPAY ==
[2019-08-03 10:23] LABS: BUN Creatinine Ratio 25.5 (6-22); Blood Urea Nitrogen 25 mg/dL (7-17); Calcium 9.7 mg/dL (8.4-10.2); Carbon Dioxide 32 mmol/L (22-32); Chloride 102 mmol/L (98-107); Estimated Glomerular Filt Rate 56.8 mL/min (>60); Glucose 86 mg/dL (80-110); HEMOLYSIS < 15 (0-50); Potassium 4.2 mmol/L (3.4-5.1); Sodium 139 mmol/L (137-145)
[2019-08-03 10:38] LABS: Vitamin D 25 Hydroxy (D3) 45.2 ng/mL (30.0-100.0)
== END ==
PROVIDERS: PCP Student in an Organized Health Care Education/Training Program; Referring Provider Student in an Organized Health Care Education/Training Program; Visit Provider Student in an Organized Health Care Education/Training Program
DX: E55.9 Vitamin D deficiency, unspecified (principal); I10 Essential (primary) hypertension
CPT/HCPCS: 36415; 80048; 82306

== ENCOUNTER → 2019-10-05 08:17 | Outpatient (CLI) | payer MEDICARE, OTHER, SELFPAY ==
--- NOTE | 2019-10-05 08:30 | DI.MG.S_ITS ---
Patient Name: ELIZABETH BEDOLLA date: 1955 Sex: F Attending Physician: Shelia Indications: Date: 10/05/2019 08:24 At the request of: VICTORIA ETIENNE Procedure: MM screening mammo BI BILATERAL DIGITAL SCREENING MAMMOGRAM 3D/2D WITH CAD: 10/05/2019 CLINICAL: Routine screening. Family history of breast cancer. Comparison is made to exams dated: 09/30/2017 mammogram, 10/03/2018 mammogram - [facility], 08/28/2016 mammogram, 08/28/2015 mammogram, and 08/22/2014 mammogram - [facility]. The tissue of both breasts is predominantly fatty. Current study was also evaluated with a Computer Aided Detection (CAD) system. No significant masses, calcifications, or other findings are seen in either breast. There has been no significant interval change. IMPRESSION: NEGATIVE There is no mammographic evidence of malignancy. A 1 year screening mammogram is recommended. This exam was interpreted at Station ID: [id number]. NOTE: For mammograms, a report in lay terms will be sent to the patient. Approximately 15% of breast malignancies will not be visualized mammographically. In the management of a palpable breast mass, a negative mammogram must not discourage biopsy of a clinically suspicious lesion. Electronically Signed By: Rudy brady/isela:10/05/2019 10:52:55 letter sent: Normal Exam ACR BI-RADS Category 1: Negative 3341F
== END ==
PROVIDERS: PCP Student in an Organized Health Care Education/Training Program; Referring Provider Student in an Organized Health Care Education/Training Program; Visit Provider Student in an Organized Health Care Education/Training Program
DX: Z12.31 Encounter for screening mammogram for malignant neoplasm of breast (principal); Z80.3 Family history of malignant neoplasm of breast
CPT/HCPCS: 77063; 77067

== ENCOUNTER → 2019-10-20 15:51 | Outpatient (CLI) | payer MEDICARE, OTHER, SELFPAY ==
[2019-10-23 13:15] LABS: COVID19 Sendout Not Detected (Not Detect)
== END ==
PROVIDERS: PCP Student in an Organized Health Care Education/Training Program; Visit Provider Physician Assistant
DX: Z11.59 Encounter for screening for other viral diseases (principal)
CPT/HCPCS: 87635

== ENCOUNTER → 2020-09-03 08:26 | Outpatient (CLI) | payer MEDICARE, OTHER, SELFPAY ==
[2020-09-03 09:36] LABS: BUN Creatinine Ratio 18.8 (6-22); Blood Urea Nitrogen 19 mg/dL (7-17); Calcium 9.4 mg/dL (8.4-10.2); Carbon Dioxide 28 mmol/L (22-32); Chloride 105 mmol/L (98-107); Estimated Glomerular Filt Rate 54.7 mL/min (>60); Glucose 94 mg/dL (80-110); HEMOLYSIS < 15 (0-50); Potassium 4.5 mmol/L (3.4-5.1); Sodium 139 mmol/L (137-145)
== END ==
PROVIDERS: PCP Student in an Organized Health Care Education/Training Program; Referring Provider Student in an Organized Health Care Education/Training Program; Visit Provider Student in an Organized Health Care Education/Training Program
DX: I10 Essential (primary) hypertension (principal)
CPT/HCPCS: 36415; 80048

== ENCOUNTER → 2020-10-16 09:20 | Outpatient (CLI) | payer MEDICARE, OTHER, SELFPAY ==
--- NOTE | 2020-10-16 09:21 | DI.MG.S_ITS ---
BILATERAL DIGITAL SCREENING MAMMOGRAM 3D/2D WITH CAD: 10/16/2020 CLINICAL: Routine screening. Family history of breast cancer. Comparison is made to exams dated: 10/05/2019 mammogram, 10/03/2018 mammogram, and 09/30/2017 mammogram - [facility]. The tissue of both breasts is predominantly fatty. Current study was also evaluated with a Computer Aided Detection (CAD) system. No significant masses, calcifications, or other findings are seen in either breast. There has been no significant interval change. IMPRESSION: NEGATIVE There is no mammographic evidence of malignancy. A 1 year screening mammogram is recommended. This exam was interpreted at Station ID: [id number]. NOTE: For mammograms, a report in lay terms will be sent to the patient. Approximately 15% of breast malignancies will not be visualized mammographically. In the management of a palpable breast mass, a negative mammogram must not discourage biopsy of a clinically suspicious lesion. Electronically Signed By: Dimas Perdue acr/penrad:10/16/2020 11:37:55 letter sent: Normal Exam ACR BI-RADS Category 1: Negative 3341F
== END ==
PROVIDERS: PCP Student in an Organized Health Care Education/Training Program; Referring Provider Student in an Organized Health Care Education/Training Program; Visit Provider Student in an Organized Health Care Education/Training Program
DX: Z80.3 Family history of malignant neoplasm of breast (principal); Z12.31 Encounter for screening mammogram for malignant neoplasm of breast; M85.851 Other specified disorders of bone density and structure, right thigh; Z78.0 Asymptomatic menopausal state; Z90.722 Acquired absence of ovaries, bilateral; Z82.62 Family history of osteoporosis
CPT/HCPCS: 77063; 77067; 77080

== ENCOUNTER → 2021-01-20 11:35 | Outpatient (CLI) | payer MEDICARE, OTHER, SELFPAY | PROVIDERS: PCP Student in an Organized Health Care Education/Training Program; Visit Provider Nurse Practitioner Family | DX: R30.0 Dysuria (principal) | CPT/HCPCS: 87077; 87086; 87186 ==

== ENCOUNTER → 2021-01-27 08:30 | Outpatient (CLI) | payer MEDICARE, OTHER, SELFPAY | PROVIDERS: PCP Student in an Organized Health Care Education/Training Program; Visit Provider Physician Assistant | DX: R30.0 Dysuria (principal) | CPT/HCPCS: 87077; 87086; 87147; 87186 ==

== ENCOUNTER → 2021-02-03 09:47 | Outpatient (CLI) | payer MEDICARE, OTHER, SELFPAY | PROVIDERS: PCP Student in an Organized Health Care Education/Training Program; Visit Provider Physician Assistant | DX: R30.0 Dysuria (principal) | CPT/HCPCS: 87086; 87210 ==

== ENCOUNTER → 2021-03-03 10:40 | Outpatient (CLI) | payer MEDICARE, OTHER, SELFPAY | PROVIDERS: PCP Student in an Organized Health Care Education/Training Program; Referring Provider Physician Assistant; Visit Provider Physician Assistant | DX: N39.0 Urinary tract infection, site not specified (principal) | CPT/HCPCS: 87086 ==

== ENCOUNTER → 2021-05-01 10:25 | Outpatient (CLI) | payer MEDICARE, OTHER, SELFPAY ==
[2021-05-01 11:40] LABS: Appearance Urine UA CLEAR; Bilirubin Urine UA NEGATIVE (NEGATIVE); Color Urine UA YELLOW; Glucose Urine UA NEGATIVE (Negative); Ketones Urine UA NEGATIVE (NEGATIVE); Leukocyte Esterase Urine UA TRACE (NEGATIVE); Nitrite Urine UA NEGATIVE (Negative); Occult Blood Urine UA NEGATIVE (Negative); Protein Urine UA NEGATIVE (Negative); Specific Gravity Urine UA <=1.005 (1.000-1.035); Urobilinogen Urine UA 0.2 E.U./dL (0.2)
[2021-05-01 11:48] LABS: Bacteria Urine None Seen; RBC Urine None Seen (0-5/HPF); Squamous Epithelial Cell Urine 5-10 /HPF (0-5/HPF); WBC Urine 0-1/HPF (0-5/HPF)
== END ==
PROVIDERS: PCP Student in an Organized Health Care Education/Training Program; Referring Provider Obstetrics & Gynecology; Visit Provider Obstetrics & Gynecology
DX: R31.9 Hematuria, unspecified (principal); R35.89 Other polyuria; R39.15 Urgency of urination
CPT/HCPCS: 81001; 87086

== ENCOUNTER → 2021-05-04 09:33 | Outpatient (CLI) | payer MEDICARE, OTHER, SELFPAY | PROVIDERS: PCP Student in an Organized Health Care Education/Training Program; Visit Provider Physician Assistant | DX: N39.0 Urinary tract infection, site not specified (principal) | CPT/HCPCS: 87077; 87086; 87147 ==

== ENCOUNTER → 2021-06-06 08:07 | Outpatient (CLI) | payer MEDICARE, OTHER, SELFPAY | PROVIDERS: PCP Student in an Organized Health Care Education/Training Program; Referring Provider Obstetrics & Gynecology; Visit Provider Obstetrics & Gynecology | DX: N39.0 Urinary tract infection, site not specified (principal); B95.8 Unspecified staphylococcus as the cause of diseases classified elsewhere | CPT/HCPCS: 87086 ==

== ENCOUNTER → 2021-08-06 15:56 | Outpatient (CLI) | payer MEDICARE, OTHER, SELFPAY ==
[2021-08-06 17:00] LABS: BUN Creatinine Ratio 18.3 (6-22); Blood Urea Nitrogen 24 mg/dL (7-17); Calcium 9.4 mg/dL (8.4-10.2); Carbon Dioxide 30 mmol/L (22-32); Chloride 102 mmol/L (98-107); Estimated Glomerular Filt Rate 44 mL/min (>60); Glucose 97 mg/dL (80-110); HEMOLYSIS < 15 (0-50); Potassium 4.5 mmol/L (3.4-5.1); Sodium 139 mmol/L (137-145)
== END ==
PROVIDERS: PCP Student in an Organized Health Care Education/Training Program; Referring Provider Student in an Organized Health Care Education/Training Program; Visit Provider Student in an Organized Health Care Education/Training Program
DX: I10 Essential (primary) hypertension (principal)
CPT/HCPCS: 36415; 80048

== ENCOUNTER → 2021-08-29 08:08 | Outpatient (CLI) | payer MEDICARE, OTHER, SELFPAY ==
[2021-08-29 10:33] LABS: Blood Urea Nitrogen 18 mg/dL (7-17); Calcium 8.8 mg/dL (8.4-10.2); Carbon Dioxide 25 mmol/L (22-32); Chloride 108 mmol/L (98-107); Estimated Glomerular Filt Rate > 60 mL/min (>60); Glucose 70 mg/dL (80-110); HEMOLYSIS < 15 (0-50); Potassium 4.4 mmol/L (3.4-5.1); Sodium 140 mmol/L (137-145)
== END ==
PROVIDERS: PCP Student in an Organized Health Care Education/Training Program; Referring Provider Student in an Organized Health Care Education/Training Program; Visit Provider Student in an Organized Health Care Education/Training Program
DX: N17.9 Acute kidney failure, unspecified (principal)
CPT/HCPCS: 36415; 80048

== ENCOUNTER → 2021-10-20 11:04 | Outpatient (CLI) | payer MEDICARE, OTHER, SELFPAY ==
--- NOTE | 2021-10-20 11:06 | DI.MG.S_ITS ---
BILATERAL DIGITAL SCREENING MAMMOGRAM 3D/2D WITH CAD: 10/20/2021 CLINICAL: Routine screening. Family history of breast cancer. Comparison is made to exams dated: 10/16/2020 mammogram, 10/05/2019 mammogram, and 10/03/2018 mammogram - [facility]. Both breasts are almost entirely fatty (category a/<25% glandular tissue). Current study was also evaluated with a Computer Aided Detection (CAD) system. No significant masses, calcifications, or other findings are seen in either breast. There has been no significant interval change. IMPRESSION: NEGATIVE There is no mammographic evidence of malignancy. A 1 year screening mammogram is recommended. Based on the Tyrer Cuzick model (a risk assessment model) the patient's lifetime risk is 7.1% and her 10 year risk is 3.9%. According to the ACR, ACS, and NCCN guidelines, an annual breast MRI exam along with mammogram is recommended if the patient's lifetime risk is 20% or greater. This exam was interpreted at Station ID: [id number]. NOTE: For mammograms, a report in lay terms will be sent to the patient. Approximately 15% of breast malignancies will not be visualized mammographically. In the management of a palpable breast mass, a negative mammogram must not discourage biopsy of a clinically suspicious lesion. Electronically Signed By: Jared mantilla/isela:10/20/2021 13:26:06 letter sent: Normal Exam ACR BI-RADS Category 1: Negative 3341F
== END ==
PROVIDERS: PCP Student in an Organized Health Care Education/Training Program; Referring Provider Student in an Organized Health Care Education/Training Program; Visit Provider Student in an Organized Health Care Education/Training Program
DX: Z12.31 Encounter for screening mammogram for malignant neoplasm of breast (principal); Z80.3 Family history of malignant neoplasm of breast
CPT/HCPCS: 77063; 77067

== ENCOUNTER 2021-11-02 00:28 | Emergency (ER) | payer MEDICARE, OTHER, SELFPAY ==
[2021-11-02 00:31] VITALS: BP 178/80; PULSE 76; RESP 18; TEMP 36.2; O2SAT 100; BMI 29.0
[2021-11-02 01:03] VITALS: BP 162/79; PULSE 81; RESP 20; O2SAT 98
[2021-11-02 01:07] LABS: Add Manual Diff / Slide Review NO; Basophils Absolute Auto 0 /uL (0-100); Basophils Percent Auto 0.4 % (0-2); Eosinophils Absolute Auto 300 /uL (0-450); Eosinophils Percent Auto 3.2 % (2-4); Hematocrit 36.2 % (36-46); Hemoglobin 12.1 g/dL (12.0-16.0); Lymphocytes Absolute Auto 2400 /uL (1100-4500); Mean Corpuscular HGB Conc 33.6 % (30-36); Mean Corpuscular Hemoglobin 29.1 PG (26-34); Mean Corpuscular Volume 86.7 fL (80-100); Monocytes Absolute Auto 800 /uL (0-900); Monocytes Percent Auto 9.3 % (3-14); Neutrophils Absolute Auto 5100 /uL (1500-7000); Neutrophils Percent Auto 59.1 % (50-75); Platelet Count 242 X10^3/uL (150-400); Red Blood Cell Count 4.17 X10^6/uL (4.0-5.2); Red Cell Distribution Width 13.3 % (11.6-14.8); White Blood Cell Count 8.6 X10^3/uL (4.5-11.0)
[2021-11-02 01:15] LABS: Alanine Aminotransferase 93 IU/L (<35); Albumin 3.9 g/dL (3.5-5.0); Albumin Globulin Ratio 1.3 (1.0-2.8); Alkaline Phosphatase 86 U/L (38-126); Aspartate Aminotransferase 186 IU/L (14-36); BUN Creatinine Ratio 23.4 (6-22); Bilirubin Total 0.3 mg/dL (0.2-1.3); Blood Urea Nitrogen 22 mg/dL (7-17); Carbon Dioxide 26 mmol/L (22-32); Chloride 106 mmol/L (98-107); Estimated Glomerular Filt Rate > 60 mL/min (>60); Globulin 3.1 g/dL (1.7-4.1); Glucose 116 mg/dL (80-110); HEMOLYSIS < 15 (0-50); Lipase 138 U/L (23-300); Potassium 3.7 mmol/L (3.4-5.1); Sodium 138 mmol/L (137-145)
--- NOTE | 2021-11-02 01:51 | PC.NURSE ---
Addendum entered by Braden Chavez R.N. 11/02/21 01:53: Charted in Error on wrong patient. Original Note: Patient suddenly ambulates out of room, yelling at nursing station I got to leave. I have been waiting. You have done nothing. I am in pain. I got to go. Patient encouraged to stay however patient ambulates out of ED.
[2021-11-02] MEDS: PANTOPRAZOLE 40 MG VIAL IV (02:35)
[2021-11-02] MEDS: MAG HYDROX/ALUMINUM/SIMETH SUS 20 ML, LIDOCAINE VISCOUS 2% 15 ML PO (02:36)
--- NOTE | 2021-11-02 03:05 | PC.NURSE ---
Patient denies any relief from GI cocktail and reports continued 8/10 epigastric pain. She denies any nausea or vomiting. No dysuria.
[2021-11-02] MEDS: KETOROLAC 30 MG/ML VIAL 15 MG IV (03:11)
--- NOTE | 2021-11-02 03:15 | ED.ABDPAIN ---
HPI - Abdominal Pain <Taisha Linares DO - Last Filed: 11/03/21 05:28> General Chief Complaint: Abdominal Pain Stated Complaint: RT. SIDE ABD. PAIN Time Seen by Provider: 11/02/21 03:08 Source: patient Mode of arrival: Ambulatory Limitations: no limitations History of Present Illness HPI narrative: This is a 66-year-old female with history of hypertension, GERD and overactive bladder. Patient states she woke up at 11:15 p.m. 11/01/2021 with right upper quadrant pain that woke her from sleep she did have any symptoms earlier. She states no fevers or chills. She is had nausea but no vomiting she felt diaphoretic. She denies any issues such as constipation, diarrhea no black or bloody stools. She is had normal urination with no dysuria urgency or frequency she states pain radiates across to her back. Patient states real chest pain but does feel little bit tight but she states she very anxious, she denies shortness of breath. She denies swelling in her extremities. She is had prior surgery for bladder prolapse and both ovaries removed bilaterally. She is allergic to Ceftin with mouth and airway swelling, no tobacco, occasional alcohol, no illicit. Mom had hypertension unsure history with for her father. She is half siblings 1 of whom had cholecystectomy and appendectomy. Primary care is Dr. Reid. Related Data Previous Rx's Medication Instructions Recorded olmesartan 40 mg tablet 40 mg PO DAILY #90 tabs 08/08/21 trospium 20 mg tablet 20 mg PO QAM AND QHS #60 tabs 10/01/21 pantoprazole 40 mg tablet,delayed 40 mg PO DAILY #90 tabs 10/09/21 release oxycodone-acetaminophen 5 mg-325 1 tab PO Q6H PRN pain #10 tabs 11/02/21 mg tablet Allergies Allergy/AdvReac Type Severity Reaction Status Date / Time cefuroxime [From Ceftin] Allergy rash, Verified 11/02/21 00:31 irregular heart rhythm Review of Systems <Taisha Linares DO - Last Filed: 11/03/21 05:28> Review of Systems ROS Unobtainable: All systems reviewed & are unremarkable except as noted in HPI and below Patient History <Taisha Linares DO - Last Filed: 11/03/21 05:28> Medical History Perez's esophagus (~2016) Constipation by delayed colonic transit GERD (gastroesophageal reflux disease) (1978) Obesity (BMI 30.0-34.9) Postmenopausal atrophic vaginitis Surgical History History of bladder surgery (~01/2011) History of knee replacement (~05/2016) History of knee surgery (~05/2010) Hx of foot surgery (09/2016) Family History Father Heart disease Hypertension Mother Cancer Hypertension Social History marital status: household members: spouse education level: high school travel history: recurrent seatbelt use: always water heater temp set < 120 deg: Yes working smoke detector in home: Yes fire extinguisher in home: Yes carbon monox detector in home: Yes firearms in home: Yes do you feel safe at home: Yes Smoking Status: Never smoker second hand exposure: No alcohol intake: current (a glass of wine once or twice a month.) substance use type: does not use well-balanced diet: daily or most days daily servings fruits/ve-4 caffeine: Yes eating out: 1-3 times/week Type(s) of exercise: walking and additional frequency: 1-2 times per week duration: 45-60 minutes/day Smoking Status: Never smoker alcohol intake frequency: holidays/special occasions only Substance Use Type: does not use Exam <Taisha Linares DO - Last Filed: 11/03/21 05:28> Narrative Exam Narrative: GENERAL: Alert and oriented x three, female in mild distress HEENT: Head normocephalic, atraumatic, EOMI, pupils reactive, face symmetric, moist mucous membranes NECK: Supple, full range of motion CARDIOVASCULAR: Regular rate and rhythm without murmurs, rubs or gallops. RESPIRATORY: Breath sounds equal bilaterally, no wheezes rales or rhonchi. ABDOMEN: Soft, positive for right upper quadrant tenderness. Normoactive bowel sounds all 4 quadrants. No guarding or rebound, rigidity, no mass, no pulsatile bruit or mass. : No CVA tenderness EXTREMITIES: Normal range of motion, no clubbing or edema. Neurovascularly intact NEUROLOGICAL: Cranial nerves II through XII grossly intact. Moving all extremities SKIN: Warm, dry, no petechiae, no rashes or lesions. Initial Vital Signs Initial Vital Signs: Vital Signs Temperature 97.2 F L 11/02/21 00:31 Pulse Rate 76 11/02/21 00:31 Respiratory Rate 18 11/02/21 00:31 Blood Pressure 178/80 H 11/02/21 00:31 Pulse Oximetry 100 11/02/21 00:31 Oxygen Delivery Method 11/02/21 00:31 <Karen Felton MD - Last Filed: 11/02/21 08:49> Initial Vital Signs Initial Vital Signs: Vital Signs Temperature 97.2 F L 11/02/21 00:31 Pulse Rate 76 11/02/21 00:31 Respiratory Rate 18 11/02/21 00:31 Blood Pressure 178/80 H 11/02/21 00:31 Pulse Oximetry 100 11/02/21 00:31 Oxygen Delivery Method 11/02/21 00:31 Course <Taisha Linares DO - Last Filed: 11/03/21 05:28> Orders Ordered: Discontinued Medications Al Hydrox/Mg Hydrox/Simethicone 20 ml/ Lidocaine HCl 15 ml 0 ml PO NOW ONE Stop: 11/02/21 02:29 Last Admin: 11/02/21 02:36 Dose: 10 ml Documented By: MIRACLE Ketorolac Tromethamine (Ketorolac 30 Mg/Ml Vial) 15 mg IV NOW ONE Stop: 11/02/21 03:09 Last Admin: 11/02/21 03:11 Dose: 15 mg Documented By: MIRACLE Morphine Sulfate (Morphine 4 Mg/Ml Inj) 4 mg IV NOW ONE Stop: 11/02/21 04:53 Last Admin: 11/02/21 04:58 Dose: 4 mg Documented By: MIRACLE Oxycodone/Acetaminophen (Oxycodone/Apap 5/325 Prepack) 1 bottle MISC SEEINSTR ONE Stop: 11/02/21 08:49 Last Admin: 11/02/21 09:03 Dose: 1 bottle Documented By: BERNARD Pantoprazole Sodium (Pantoprazole 40 Mg Vial) 40 mg IV NOW ONE Stop: 11/02/21 02:29 Last Admin: 11/02/21 02:35 Dose: 40 mg Documented By: MIRACLE Vital Signs Vital signs: Vital Signs - 8 hr 11/02/21 00:31 11/02/21 01:03 11/02/21 05:01 Temperature 97.2 F L Pulse Rate 76 81 70 Respiratory Rate 18 20 14 Blood Pressure 178/80 H 162/79 H 156/74 H Pulse Oximetry 100 98 100 Oxygen Delivery Method Room Air Room Air Room Air 11/02/21 05:49 Temperature Pulse Rate 71 Respiratory Rate 14 Blood Pressure 120/68 Pulse Oximetry 100 Oxygen Delivery Method Room Air <Karen Felton MD - Last Filed: 11/02/21 08:49> Orders Ordered: Discontinued Medications Al Hydrox/Mg Hydrox/Simethicone 20 ml/ Lidocaine HCl 15 ml 0 ml PO NOW ONE Stop: 11/02/21 02:29 Last Admin: 11/02/21 02:36 Dose: 10 ml Documented By: MIRACLE Ketorolac Tromethamine (Ketorolac 30 Mg/Ml Vial) 15 mg IV NOW ONE Stop: 11/02/21 03:09 Last Admin: 11/02/21 03:11 Dose: 15 mg Documented By: MIRACLE Morphine Sulfate (Morphine 4 Mg/Ml Inj) 4 mg IV NOW ONE Stop: 11/02/21 04:53 Last Admin: 11/02/21 04:58 Dose: 4 mg Documented By: MIRACLE Oxycodone/Acetaminophen (Oxycodone/Apap 5/325 Prepack) 1 bottle MISC SEEINSTR ONE Stop: 11/02/21 08:49 Last Admin: 11/02/21 09:03 Dose: 1 bottle Documented By: BERNARD Pantoprazole Sodium (Pantoprazole 40 Mg Vial) 40 mg IV NOW ONE Stop: 11/02/21 02:29 Last Admin: 11/02/21 02:35 Dose: 40 mg Documented By: MIRACLE Vital Signs Vital signs: Vital Signs - 8 hr 11/02/21 00:31 11/02/21 01:03 11/02/21 05:01 Temperature 97.2 F L Pulse Rate 76 81 70 Respiratory Rate 18 20 14 Blood Pressure 178/80 H 162/79 H 156/74 H Pulse Oximetry 100 98 100 Oxygen Delivery Method Room Air Room Air Room Air 11/02/21 05:49 Temperature Pulse Rate 71 Respiratory Rate 14 Blood Pressure 120/68 Pulse Oximetry 100 Oxygen Delivery Method Room Air MDM - Abdominal Pain <Taisha Linares, DO - Last Filed: 11/03/21 05:28> Lab Data Result diagrams: 11/02/21 00:56 11/02/21 00:56 Labs: Lab Results 11/02/21 11/02/21 11/02/21 Range/Units 00:56 00:56 00:56 WBC 8.6 (4.5-11.0) X10^3/uL RBC 4.17 (4.0-5.2) X10^6/uL Hgb 12.1 (12.0-16.0) g/dL Hct 36.2 (36-46) % MCV 86.7 (80-100) fL MCH 29.1 (26-34) PG MCHC 33.6 (30-36) % RDW 13.3 (11.6-14.8) % Plt Count 242 (150-400) X10^3/uL Neut % (Auto) 59.1 (50-75) % Lymph % (Auto) 28.0 (25-40) % [place] % (Auto) 9.3 (3-14) % Eos % (Auto) 3.2 (2-4) % Baso % (Auto) 0.4 (0-2) % Neut # (Auto) 5100 (3833-4508) /uL Lymph # (Auto) 2400 (0040-1480) /uL [place] # (Auto) 800 (0-900) /uL Eos # (Auto) 300 (0-450) /uL Baso # (Auto) 0 (0-100) /uL Sodium 138 (137-145) mmol/L Potassium 3.7 (3.4-5.1) mmol/L Chloride 106 (98-107) mmol/L Carbon Dioxide 26 (22-32) mmol/L BUN 22 H (7-17) mg/dL Creatinine 0.94 (0.52-1.04) mg/dL Estimated GFR > 60 (>60) mL/min BUN/Creatinine Ratio 23.4 H (6-22) Glucose 116 H (80-110) mg/dL Calcium 9.0 (8.4-10.2) mg/dL Total Bilirubin 0.3 (0.2-1.3) mg/dL AST 186 H (14-36) IU/L ALT 93 H (<35) IU/L Alkaline Phosphatase 86 (38-126) U/L Total Creatine Kinase 105 (30-135) U/L CK-MB (CK-2) 1.46 (<2.37) ng/mL CK-MB (CK-2) Rel Index 1.4 L (1.5-5.0) % Troponin I < 0.012 (0.01-0.034) ng/mL Total Protein 7.0 (6.3-8.2) g/dL Albumin 3.9 (3.5-5.0) g/dL Globulin 3.1 (1.7-4.1) g/dL Albumin/Globulin Ratio 1.3 (1.0-2.8) Lipase 138 (23-300) U/L Urine RBC (0-5/HPF) Urine WBC (0-5/HPF) Ur Squamous Epith Cells (0-5/HPF) Urine Bacteria (None) Ur Culture Indicated? Micro UA Comment 11/02/21 11/02/21 Range/Units 02:46 04:48 WBC (4.5-11.0) X10^3/uL RBC (4.0-5.2) X10^6/uL Hgb (12.0-16.0) g/dL Hct (36-46) % MCV (80-100) fL MCH (26-34) PG MCHC (30-36) % RDW (11.6-14.8) % Plt Count (150-400) X10^3/uL Neut % (Auto) (50-75) % Lymph % (Auto) (25-40) % [place] % (Auto) (3-14) % Eos % (Auto) (2-4) % Baso % (Auto) (0-2) % Neut # (Auto) (4658-7855) /uL Lymph # (Auto) (0325-6303) /uL [place] # (Auto) (0-900) /uL Eos # (Auto) (0-450) /uL Baso # (Auto) (0-100) /uL Sodium (137-145) mmol/L Potassium (3.4-5.1) mmol/L Chloride (98-107) mmol/L Carbon Dioxide (22-32) mmol/L BUN (7-17) mg/dL Creatinine (0.52-1.04) mg/dL Estimated GFR (>60) mL/min BUN/Creatinine Ratio (6-22) Glucose (80-110) mg/dL Calcium (8.4-10.2) mg/dL Total Bilirubin (0.2-1.3) mg/dL AST (14-36) IU/L ALT (<35) IU/L Alkaline Phosphatase (38-126) U/L Total Creatine Kinase (30-135) U/L CK-MB (CK-2) (<2.37) ng/mL CK-MB (CK-2) Rel Index (1.5-5.0) % Troponin I < 0.012 (0.01-0.034) ng/mL Total Protein (6.3-8.2) g/dL Albumin (3.5-5.0) g/dL Globulin (1.7-4.1) g/dL Albumin/Globulin Ratio (1.0-2.8) Lipase (23-300) U/L Urine RBC None seen (0-5/HPF) Urine WBC 1-5/hpf (0-5/HPF) Ur Squamous Epith Cells 0-1 /hpf (0-5/HPF) Urine Bacteria None seen (None) Ur Culture Indicated? Culture not indicate Micro UA Comment * Point of care testing: Urine Dip Bedside Urine Glucose Negative Bedside Urine Bilirubin - Negative Bedside Urine Ketone - Negative Bedside Urine Occult Blood - Negative Bedside Urine Protein - Negative Bedside Urine Urobilinogen - Negative Bedside Urine Nitrite - Negative Bedside Urine Leukocytes + [address] scan - abdomen/pelvis: Radiologist's Impression: Moderate gallbladder distention of uncertain significance no stone formation or wall thickening appreciated could be further evaluated ultrasound prominent fecal burden. ECG Data Attestation: I personally reviewed and interpreted this ECG as follows: Prior ECG tracings: not available for review Interpretation: Sinus rhythm rate of 74 SD 150 QRS of 82 and QTC of 450. S wave in 3 and AVF. No elevation. No priors for comparison. MDM Narrative Medical decision making narrative: 66-year-old female right upper quadrant abdominal pain with no acute EKG or troponin findings very mild elevation of LFT, patient CT shows possible distended gallbladder. Patient was tender in her right upper quadrant so ultrasound was obtained while this is pending patient was signed out to Dr. Felton. 66-year-old woman presents with acute right upper abdominal pain at approximately 11:30 a.m. at night last meal was at 3:00 p.m.. She has never had similar pain. Initial CT suggests a distended gallbladder with normal blood work otherwise. Pain was eventually controlled with single dose of morphine. Follow-up ultrasound shows no evidence of acute cholecystitis however there is a small gallbladder wall polyp appreciated. There is a described ?potential shadowing gallstone seen in the gallbladder neck however this is felt more likely to be related artifact?. Patient is re-examined. Pain has resolved and abdominal exam is benign. Findings are reviewed with her. Will send her home with a small prescription of Percocet to use for acute pain should return. Clearly described signs and symptoms of acute cholecystitis and reasons to return to the emergency department. Also discussed the noted large volume of stool seen on her abdominal CT. She states that she typically has a bowel movement daily and does not feel that she is constipated. She has had problems with constipation in the past and her site inspector currently has her taking MiraLax as well as prune juice daily which seems to be effective. We discussed additional doses of MiraLax to try to fully clean out her colon and see if this also influences her pain. At this point there is no evidence of acute coronary syndrome, sepsis, acute surgical abdomen, acute cholecystitis and patient is safe for home discharge. <Karen Felton MD - Last Filed: 11/02/21 08:49> Lab Data Labs: Lab Results 11/02/21 11/02/21 11/02/21 Range/Units 00:56 00:56 00:56 WBC 8.6 (4.5-11.0) X10^3/uL RBC 4.17 (4.0-5.2) X10^6/uL Hgb 12.1 (12.0-16.0) g/dL Hct 36.2 (36-46) % MCV 86.7 (80-100) fL MCH 29.1 (26-34) PG MCHC 33.6 (30-36) % RDW 13.3 (11.6-14.8) % Plt Count 242 (150-400) X10^3/uL Neut % (Auto) 59.1 (50-75) % Lymph % (Auto) 28.0 (25-40) % [place] % (Auto) 9.3 (3-14) % Eos % (Auto) 3.2 (2-4) % Baso % (Auto) 0.4 (0-2) % Neut # (Auto) 5100 (8364-6838) /uL Lymph # (Auto) 2400 (8375-8293) /uL [place] # (Auto) 800 (0-900) /uL Eos # (Auto) 300 (0-450) /uL Baso # (Auto) 0 (0-100) /uL Sodium 138 (137-145) mmol/L Potassium 3.7 (3.4-5.1) mmol/L Chloride 106 (98-107) mmol/L Carbon Dioxide 26 (22-32) mmol/L BUN 22 H (7-17) mg/dL Creatinine 0.94 (0.52-1.04) mg/dL Estimated GFR > 60 (>60) mL/min BUN/Creatinine Ratio 23.4 H (6-22) Glucose 116 H (80-110) mg/dL Calcium 9.0 (8.4-10.2) mg/dL Total Bilirubin 0.3 (0.2-1.3) mg/dL AST 186 H (14-36) IU/L ALT 93 H (<35) IU/L Alkaline Phosphatase 86 (38-126) U/L Total Creatine Kinase 105 (30-135) U/L CK-MB (CK-2) 1.46 (<2.37) ng/mL CK-MB (CK-2) Rel Index 1.4 L (1.5-5.0) % Troponin I < 0.012 (0.01-0.034) ng/mL Total Protein 7.0 (6.3-8.2) g/dL Albumin 3.9 (3.5-5.0) g/dL Globulin 3.1 (1.7-4.1) g/dL Albumin/Globulin Ratio 1.3 (1.0-2.8) Lipase 138 (23-300) U/L Urine RBC (0-5/HPF) Urine WBC (0-5/HPF) Ur Squamous Epith Cells (0-5/HPF) Urine Bacteria (None) Ur Culture Indicated? Micro UA Comment 11/02/21 11/02/21 Range/Units 02:46 04:48 WBC (4.5-11.0) X10^3/uL RBC (4.0-5.2) X10^6/uL Hgb (12.0-16.0) g/dL Hct (36-46) % MCV (80-100) fL MCH (26-34) PG MCHC (30-36) % RDW (11.6-14.8) % Plt Count (150-400) X10^3/uL Neut % (Auto) (50-75) % Lymph % (Auto) (25-40) % [place] % (Auto) (3-14) % Eos % (Auto) (2-4) % Baso % (Auto) (0-2) % Neut # (Auto) (2183-1193) /uL Lymph # (Auto) (6991-9363) /uL [place] # (Auto) (0-900) /uL Eos # (Auto) (0-450) /uL Baso # (Auto) (0-100) /uL Sodium (137-145) mmol/L Potassium (3.4-5.1) mmol/L Chloride (98-107) mmol/L Carbon Dioxide (22-32) mmol/L BUN (7-17) mg/dL Creatinine (0.52-1.04) mg/dL Estimated GFR (>60) mL/min BUN/Creatinine Ratio (6-22) Glucose (80-110) mg/dL Calcium (8.4-10.2) mg/dL Total Bilirubin (0.2-1.3) mg/dL AST (14-36) IU/L ALT (<35) IU/L Alkaline Phosphatase (38-126) U/L Total Creatine Kinase (30-135) U/L CK-MB (CK-2) (<2.37) ng/mL CK-MB (CK-2) Rel Index (1.5-5.0) % Troponin I < 0.012 (0.01-0.034) ng/mL Total Protein (6.3-8.2) g/dL Albumin (3.5-5.0) g/dL Globulin (1.7-4.1) g/dL Albumin/Globulin Ratio (1.0-2.8) Lipase (23-300) U/L Urine RBC None seen (0-5/HPF) Urine WBC 1-5/hpf (0-5/HPF) Ur Squamous Epith Cells 0-1 /hpf (0-5/HPF) Urine Bacteria None seen (None) Ur Culture Indicated? Culture not indicate Micro UA Comment * Point of care testing: Urine Dip Bedside Urine Glucose Negative Bedside Urine Bilirubin - Negative Bedside Urine Ketone - Negative Bedside Urine Occult Blood - Negative Bedside Urine Protein - Negative Bedside Urine Urobilinogen - Negative Bedside Urine Nitrite - Negative Bedside Urine Leukocytes + [address] scan - abdomen/pelvis: Radiologist's Impression: preliminary: Moderate gallbladder distention of uncertain significance no stone formation or wall thickening appreciated could be further evaluated ultrasound prominent fecal burden. FINDINGS:? Image quality:? Excellent.? ? Lung bases:? Unremarkable.? ? A small hiatal hernia is incidentally noted.? Heart:? No significant findings. ? ? ABDOMEN: Liver:? Unremarkable.? ? Gallbladder:? Gallbladder is mildly prominent in size.? No gallbladder wall thickening or pericholecystic fluid can be seen.? ? Biliary ducts:? Unremarkable.? ? Pancreas:? Unremarkable.? ? Spleen:? Unremarkable.? ? Adrenal Glands:? Unremarkable.? ? Kidneys and Ureters:? Unremarkable.? ? ? Stomach and Bowel:? Stomach, small bowel loops, and colon are unremarkable.? A moderate amount of stool is seen within the colon.? Mild distal colonic diverticulosis is seen, without findings of active diverticulitis Peritoneum:? No abnormal intraperitoneal fluid.? No free air.? ? Ventral Wall: ? No hernia.? Abdominal Nodes:? No retroperitoneal or mesenteric adenopathy by size criteria.? Vessels:? Aorta and inferior vena cava are normal in size.? ? PELVIS: Pelvic Organs: The uterus appears normal for age.? No adnexal masses are seen.? Bladder:? Unremarkable.? ? Pelvic Nodes: No enlarged lymph nodes.? Miscellaneous: No inguinal hernias are seen. ? ? ? Bones:? Mild levoconvex scoliotic curvature is noted.? Age-appropriate bony degenerative changes are seen. ? IMPRESSION:? ? Prominent gallbladder, without additional abnormality by CT. ? There is a moderate amount of stool seen within the colon. Please correlate with an underlying history of constipation.? Incidental note is made of: Small hiatal hernia Levoconvex scoliotic curvature Diverticulosis, without active diverticulitis ? ? Note: No significant discrepancy from the preliminary report. ? Dictated by: Dex Washington M.D. on 11/02/2021 at 7:14 ? ? US - abdomen: Radiologist's Impression: FINDINGS:? The liver is normal in size and demonstrates no focal lesions. ? There is a potential shadowing gallstone seen at the gallbladder neck.? However, this is felt more likely to be related to artifact.? There is a 2 mm gallbladder wall polyp seen. ?? The gallbladder wall is not thickened, measuring 3 mm or less.? No specific pericholecystic fluid is seen.? The sonographic Espinoza sign is negative. ? There is no biliary dilatation, the common bile duct measures 6 mm.? ? The pancreas appears echogenic. ? No fluid can be seen. ? Overall imaging quality is limited, secondary to bowel gas. ? ? IMPRESSION:? Potential shadowing gallstone seen at the gallbladder neck, which is felt more likely to be related to artifact.? No similar abnormality can be seen on the 2019 ultrasound. ? No additional significant abnormality the gallbladder can be seen. ? No biliary dilatation.? ? If clinically appropriate, please consider short-term follow-up ultrasound.? ? Dictated by: Dex Washington M.D. on 11/02/2021 at 7:03 ? ? [facility] Narrative Medical decision making narrative: 66-year-old woman presents with acute right upper abdominal pain at approximately 11:30 a.m. at night last meal was at 3:00 p.m.. She has never had similar pain. Initial CT suggests a distended gallbladder with normal blood work otherwise. Pain was eventually controlled with single dose of morphine. Follow-up ultrasound shows no evidence of acute cholecystitis however there is a small gallbladder wall polyp appreciated. There is a described ?potential shadowing gallstone seen in the gallbladder neck however this is felt more likely to be related artifact?. Patient is re-examined. Pain has resolved and abdominal exam is benign. Findings are reviewed with her. Will send her home with a small prescription of Percocet to use for acute pain should return. Clearly described signs and symptoms of acute cholecystitis and reasons to return to the emergency department. Also discussed the noted large volume of stool seen on her abdominal CT. She states that she typically has a bowel movement daily and does not feel that she is constipated. She has had problems with constipation in the past and her site inspector currently has her taking MiraLax as well as prune juice daily which seems to be effective. We discussed additional doses of MiraLax to try to fully clean out her colon and see if this also influences her pain. At this point there is no evidence of acute coronary syndrome, sepsis, acute surgical abdomen, acute cholecystitis and patient is safe for home discharge. Discharge Plan Departure Patient Disposition: Home Clinical Impression: Abdominal pain Instructions: DI for Gallstones Activity Restrictions/Additional Instructions: Your liver enzymes this morning were only very mildly elevated and at some point in the future can be re-evaluated. Your CT scan shows a slightly enlarged gallbladder and quite a bit of stool throughout your entire colon. The follow-up ultrasound does not show acute cholecystitis, a sick gallbladder. There is a question of a gallstone seen at the very top of your gallbladder but it is felt to more likely be related to artifact from the ultrasound technology itself. At this time, it is safe to use pain medication to simply cover up the pain but I do recommend that you follow-up with either your primary care physician or general surgeon if you continue to have this severe acute right upper quadrant pain. Prescription for Percocet was electronically transmitted to [email or web address] in [place]. On the CT scan there was noted to be quite a bit of stool throughout your colon. I would recommend increasing your MiraLax dose over the next 1-2 days to see if cleaning out your colon completely helps influence your pain as well. Please return for rapidly worsening symptoms, fevers, persistent vomiting, new rash or skin changes, black or bloody stools or new or concerning symptoms. Prescriptions: New oxycodone-acetaminophen 5-325 mg tablet 1 tab PO Q6H PRN (Reason: pain) Qty: 10 0RF No Action pantoprazole 40 mg tablet,delayed release (DR/EC) 40 mg PO DAILY Qty: 90 2RF olmesartan 40 mg tablet 40 mg PO DAILY Qty: 90 3RF trospium 20 mg tablet 20 mg PO QAM AND QHS Qty: 60 6RF Rx Instructions: administer on an empty stomach Referrals: Dudley Bass MD [Primary Care Provider] - Visit Report Forms: Patient Portal/API
[2021-11-02 03:24] LABS: Bacteria Urine None Seen; RBC Urine None Seen (0-5/HPF); Squamous Epithelial Cell Urine 0-1 /HPF (0-5/HPF); WBC Urine 1-5/HPF (0-5/HPF)
--- NOTE | 2021-11-02 03:32 | DI.CT.S_ITS ---
PROCEDURE: CT ABDOMEN PELVIS W CON INDICATIONS: RUQ pain, radiates to back TECHNIQUE: After the administration of oral and IV contrast, axial sections were acquired from the lung bases to the pubic symphysis. Coronal and sagittal reformats were performed. For radiation dose reduction, the following was used: automated exposure control, adjustment of mA and/or kV according to patient size. COMPARISON: [facility], US, US ABDOMEN COMPLETE, 04/24/2018, 21:09. [facility], US, US ABDOMEN LIMITED, 11/02/2021, 6:37. [facility], CT, CT ABDOMEN PELVIS W CON, 04/24/2018, 21:58. FINDINGS: Image quality: Excellent. Lung bases: Unremarkable. A small hiatal hernia is incidentally noted. Heart: No significant findings. ABDOMEN: Liver: Unremarkable. Gallbladder: Gallbladder is mildly prominent in size. No gallbladder wall thickening or pericholecystic fluid can be seen. Biliary ducts: Unremarkable. Pancreas: Unremarkable. Spleen: Unremarkable. Adrenal Glands: Unremarkable. Kidneys and Ureters: Unremarkable. Stomach and Bowel: Stomach, small bowel loops, and colon are unremarkable. A moderate amount of stool is seen within the colon. Mild distal colonic diverticulosis is seen, without findings of active diverticulitis Peritoneum: No abnormal intraperitoneal fluid. No free air. Ventral Wall: No hernia. Abdominal Nodes: No retroperitoneal or mesenteric adenopathy by size criteria. Vessels: Aorta and inferior vena cava are normal in size. PELVIS: Pelvic Organs: The uterus appears normal for age. No adnexal masses are seen. Bladder: Unremarkable. Pelvic Nodes: No enlarged lymph nodes. Miscellaneous: No inguinal hernias are seen. Bones: Mild levoconvex scoliotic curvature is noted. Age-appropriate bony degenerative changes are seen. IMPRESSION: Prominent gallbladder, without additional abnormality by CT. There is a moderate amount of stool seen within the colon. Please correlate with an underlying history of constipation. Incidental note is made of: Small hiatal hernia Levoconvex scoliotic curvature Diverticulosis, without active diverticulitis Note: No significant discrepancy from the preliminary report. Dictated by: Dex Washington M.D. on 11/02/2021 at 7:14 Approved by: Dex Washington M.D. on 11/02/2021 at 7:17
[2021-11-02 03:49] LABS: Creatine Kinase 105 U/L (30-135)
[2021-11-02 04:02] LABS: Troponin I < 0.012 ng/mL (0.01-0.034)
[2021-11-02 04:04] LABS: CKMB % Relative Index 1.4 % (1.5-5.0); Creatine Kinase MB 1.46 ng/mL (<2.37)
[2021-11-02] MEDS: MORPHINE 4 MG/ML INJ IV (04:58)
[2021-11-02 05:01] VITALS: BP 156/74; PULSE 70; RESP 14; O2SAT 100
[2021-11-02 05:16] LABS: Troponin I < 0.012 ng/mL (0.01-0.034)
[2021-11-02 05:49] VITALS: BP 120/68; PULSE 71; RESP 14; O2SAT 100
--- NOTE | 2021-11-02 05:49 | DI.US.S_ITS ---
PROCEDURE: US ABDOMEN LIMITED INDICATIONS: ruq pain TECHNIQUE: Real-time focused scanning was performed of the abdomen, with image documentation. COMPARISON: [facility], CT, CT ABDOMEN PELVIS W CON, 11/02/2021, 3:44. [facility], US, US ABDOMEN COMPLETE, 04/24/2018, 21:09. FINDINGS: The liver is normal in size and demonstrates no focal lesions. There is a potential shadowing gallstone seen at the gallbladder neck. However, this is felt more likely to be related to artifact. There is a 2 mm gallbladder wall polyp seen. The gallbladder wall is not thickened, measuring 3 mm or less. No specific pericholecystic fluid is seen. The sonographic Espinoza sign is negative. There is no biliary dilatation, the common bile duct measures 6 mm. The pancreas appears echogenic. No fluid can be seen. Overall imaging quality is limited, secondary to bowel gas. IMPRESSION: Potential shadowing gallstone seen at the gallbladder neck, which is felt more likely to be related to artifact. No similar abnormality can be seen on the 2019 ultrasound. No additional significant abnormality the gallbladder can be seen. No biliary dilatation. If clinically appropriate, please consider short-term follow-up ultrasound. Dictated by: Dex Washington M.D. on 11/02/2021 at 7:03 Approved by: Dex Washington M.D. on 11/02/2021 at 7:08
--- NOTE | 2021-11-02 05:50 | PC.NURSE ---
Patient reports abdominal pain has completely resolved. She appears more relaxed. Respirations equal, regular and unlabored. No acute distress noted. at the bedside. Will continue to monitor.
--- NOTE | 2021-11-02 06:29 | PC.NURSE ---
Ultrasound arrives at the bedside, patient continues to appear relaxed.
[2021-11-02 09:03] VITALS: BP 153/76; PULSE 94; RESP 16; O2SAT 99
[2021-11-02] MEDS: OXYCODONE/APAP 5/325 PREPACK 1 BOTTLE MISC (09:03)
== END 2021-11-02 09:04 | disposition home or self-care (01) ==
PROVIDERS: Emergency Provider Emergency Medicine; PCP Student in an Organized Health Care Education/Training Program
DX: R10.11 Right upper quadrant pain (principal); R79.89 Other specified abnormal findings of blood chemistry; K21.9 Gastro-esophageal reflux disease without esophagitis
CPT/HCPCS: 36415; 74177; 76705; 80053; 81003; 81015; 82550; 82553; 83690; 84484; 85025; 87086; 93005; 96374; 96375; 99284; 99285; C9113; J1885; J2270; Q9967

== ENCOUNTER → 2021-11-27 09:29 | Outpatient (CLI) | payer MEDICARE, OTHER, SELFPAY ==
[2021-11-27 12:14] LABS: COVID19 -Nasal RAPID Negative (Negative)
== END ==
PROVIDERS: PCP Student in an Organized Health Care Education/Training Program; Visit Provider Surgery
DX: Z01.812 Encounter for preprocedural laboratory examination (principal); Z20.822 Contact with and (suspected) exposure to COVID-19
CPT/HCPCS: 87635; C9803

== ENCOUNTER 2021-11-28 10:38 | Day surgery (SDC) | payer MEDICARE, OTHER, SELFPAY ==
[2021-11-24 15:23] VITALS: BMI 28.8
[2021-11-28] VITALS (10 sets, daily range): BP systolic 125–158; BP diastolic 74–86; PULSE 70–97; RESP 11–17; TEMP 36.2–36.8; O2SAT 97–100; BMI 28.8
--- NOTE | 2021-11-28 | PATH_ITS ---
[facility] Accession Number: [id number] . 01 Material submitted: . gallbladder - GALLBLADDER . 01 Diagnosis: Gallbladder, Cholecystectomy: Chronic cholecystitis, cholesterolosis, and cholelithiasis. MRV 12/01/2021 1043 Local . 01 Electronically signed: . Emily Zabala MD, Pathologist NPI- [id number] . 01 Gross description: . The specimen is received in formalin, labeled with the patient's name and gallbladder, and consists of an intact gallbladder measuring 6.6 x 2.9 x 2.7 cm with green wrinkled serosa and a rough and unremarkable hepatic surface. The cystic duct is received closed with a clamp, is inked blue, and no pericystic lymph node is identified. Opening the specimen reveals the lumen to be filled with dark green viscous bile and numerous yellow, sand-like calculi measuring less than 0.1 cm in greatest dimension. The mucosa is dark green and velvety with numerous pinpoint yellow areas consistent with cholesterol deposits. No polyps or lesions are identified. The beltran average 0.1 cm thick. [employer] sections to include the cystic duct margin and full-thickness sections are submitted in cassette A1. ([id number]) /FRR 11/29/2021 1219 Local . 01 Pathologist provided ICD-10: K82.8, K80.10 . 01 CPT . 430161 Specimen Comment: A courtesy copy of this report has been sent to [phone] Performed at: 01 [facility] [address] [place] [address] [address] [facility], [place], [place] [id number] MD Steve Lawson MD Phone: [phone]
[2021-11-28] MEDS: LACTATED RINGERS 1,000 ML 42 ML IV ×2 (11:01→14:13)
--- NOTE | 2021-11-28 12:28 | PM.PREOP ---
Pre-operative Note Interval Note History & Physical reviewed/Exam performed by Physician: Yes Changes to H&P: No
--- NOTE | 2021-11-28 12:58 | SUR.OPER ---
Supine on padded OR bed, head on pillow, safety belt at thigh, left arm padded and tucked at side. Right arm secured on padded arm board <90 degrees abduction. Legs uncrossed. Padded footboard in place. Tape over blanket to secure lower legs.
[2021-11-28] MEDS: CLINDAMYCIN 900 MG/50 ML PIGGYBACK 50 MG IV (13:00)
[2021-11-28] MEDS: BUPIVACAINE 0.25% (PF) VIAL 30 ML INJ (13:08)
[2021-11-28] MEDS: LACTATED RINGERS 1,000 ML 100 ML IV (13:55)
[2021-11-28] MEDS: ONDANSETRON 4 MG/2 ML INJ (14:08)
--- NOTE | 2021-11-28 14:09 | P.OP_ITS ---
Operative Date/Time/Diagnoses Date of procedure: 11/28/21 Time of procedure: 14:09 Pre-op diagnosis: Biliary dyskinesia Gallbladder polyp Post-op diagnosis: same Procedure & Clinicians Procedure: Laparoscopic cholecystectomy Same procedure as scheduled: Yes Indications: Gallbladder polyp Surgeon: Terrance Francisco Anesthesia Type: General Operative Notes Findings: Venous oozing from the liver bed. Critical view of safety established Specimen(s): other (cholecystectomy) Estimated Blood Loss (mL): 100 Procedure in detail: The patient was placed supine on the table and bilateral lower extremity compression devices were applied. Anesthesia was induced they were intubated with an endotracheal tube and received 900 mg Clindamycin. A time-out was performed. They were prepped and draped in sterile fashion. An infraumbilical incision was made, the fascia was elevated and sharply incised entering the abdomen atraumatically. A blunt tip 12mm balloon trocar was then inserted, pneumoperitoneum was established and inspection of the abdomen demonstrated no evidence of injury. They were placed head up and right side up and then a 11 mm port was placed high in the epigastrium and two 5mm in the right upper quadrant. The gallbladder was not acutely inflamed. The gallbladder was grasped by the fundus and retracted over the liver and retracted laterally by the infundibulum. Using electrocautery the lateral plane between the gallbladder and the liver was opened towards the fundus. The gallbladder was then retracted laterally and the medial plane was developed in the same manner. With the gallbladder mobilized the bottom of the cystic plate was visualized. The hepatocystic triangle was meticulosly skeletonized of all fat and fibrous tissue from both the front and the back. Only two structures were then clearly seen entering the gallbladder the cystic duct and the cystic artery. With the critical view of safety fully established the cystic duct was clipped twice proximally and once distally using the 10 mm weck hemo clip applied under direct visualization and then sharply divided. The cystic artery was divided in the same fashion. The gallbladder was removed from the liver bed using electro cautery. There was some venous oozing from the gallbladder fosa which was controlled with cautery. Th e abdomen was irrigated with sterile saline and inspection was made that showed the clips in good position. The specimen was removed using Endo-Catch. The abdomen was desufflated. The umbilical fascia was closed with 0 Vicryl in a [id number] fashion under direct visualization. Skin incisions were irrigated and closed with 4-0 Monocryl. 30 ml of 0.25% bupivacaine was infiltrated into the subcutaneous tissue of the incisions. The wounds were sealed with Dermabond. Patient emerged from anesthesia was extubated and transferred to recovery in stable condition. The sponge and instrument count at the end of the operation was correct. Complications: none Post-operative Condition: stable Disposition: same day surgery
--- NOTE | 2021-11-28 14:17 | SUR.PHASEI ---
report taken from JIMBO Calvillo at 0000
[2021-11-28] MEDS: HYDROMORPHONE 2 MG INJ IV ×2 (14:49→14:58)
[2021-11-28] MEDS: OXYCODONE IR 5 MG TABLET PO (15:09)
== END 2021-11-28 15:50 | disposition home or self-care (01) ==
PROVIDERS: PCP Student in an Organized Health Care Education/Training Program; Referring Provider Surgery; Visit Provider Surgery
PROC: 0FT44ZZ Resection of Gallbladder, Percutaneous Endoscopic Approach (ICD-10-PCS; CPT 47562; principal; 2021-11-28 12:15)
DX: K80.10 Calculus of gallbladder with chronic cholecystitis without obstruction (principal); K21.9 Gastro-esophageal reflux disease without esophagitis; I10 Essential (primary) hypertension
CPT/HCPCS: 47562; J1100; J1170; J2250; J2405; J3010

== ENCOUNTER 2021-12-03 11:44 | Inpatient (IN) | payer MEDICARE, OTHER, SELFPAY ==
[2021-12-03] VITALS (23 sets, daily range): BP systolic 131–186; BP diastolic 63–99; PULSE 101–157; RESP 12–26; TEMP 36.6–37.6; O2SAT 95–100; BMI 29.7; BMI 28.6
--- NOTE | 2021-12-03 11:54 | DI.RAD.S_ITS ---
PROCEDURE: XR CHEST 1V INDICATIONS: chest pain TECHNIQUE: One view of the chest was acquired. COMPARISON: None. FINDINGS: Surgical changes and devices: None. Lungs and pleura: Lungs are clear. No pleural effusions or pneumothorax. Mediastinum: Mediastinal contours appear normal. Heart size is normal. Bones and chest wall: No suspicious bony lesions. Overlying soft tissues appear unremarkable. IMPRESSION: No evidence acute pulmonary process. Dictated by: Leonidas Lainez M.D. on 12/03/2021 at 12:26 Approved by: Leonidas Lainez M.D. on 12/03/2021 at 12:28
[2021-12-03 12:12] LABS: Add Manual Diff / Slide Review NO; Basophils Absolute Auto 0 /uL (0-100); Basophils Percent Auto 0.3 % (0-2); Eosinophils Absolute Auto 800 /uL (0-450); Eosinophils Percent Auto 9.6 % (2-4); Hematocrit 36.9 % (36-46); Hemoglobin 12.3 g/dL (12.0-16.0); Lymphocytes Absolute Auto 1900 /uL (1100-4500); Lymphocytes Percent Auto 22.5 % (25-40); Mean Corpuscular HGB Conc 33.4 % (30-36); Mean Corpuscular Hemoglobin 28.8 PG (26-34); Mean Corpuscular Volume 86.2 fL (80-100); Monocytes Absolute Auto 900 /uL (0-900); Monocytes Percent Auto 10.2 % (3-14); Neutrophils Absolute Auto 4900 /uL (1500-7000); Neutrophils Percent Auto 57.4 % (50-75); Platelet Count 264 X10^3/uL (150-400); Red Blood Cell Count 4.28 X10^6/uL (4.0-5.2); Red Cell Distribution Width 13.4 % (11.6-14.8); White Blood Cell Count 8.6 X10^3/uL (4.5-11.0)
[2021-12-03 12:29] LABS: Alanine Aminotransferase 39 IU/L (<35); Albumin 4.2 g/dL (3.5-5.0); Albumin Globulin Ratio 1.1 (1.0-2.8); Alkaline Phosphatase 96 U/L (38-126); Aspartate Aminotransferase 38 IU/L (14-36); BUN Creatinine Ratio 16.3 (6-22); Bilirubin Total 0.6 mg/dL (0.2-1.3); Blood Urea Nitrogen 14 mg/dL (7-17); Calcium 9.4 mg/dL (8.4-10.2); Carbon Dioxide 26 mmol/L (22-32); Chloride 103 mmol/L (98-107); Creatine Kinase 83 U/L (30-135); Estimated Glomerular Filt Rate > 60 mL/min (>60); Globulin 3.7 g/dL (1.7-4.1); Glucose 100 mg/dL (80-110); Potassium 3.8 mmol/L (3.4-5.1); Sodium 139 mmol/L (137-145); Total Protein 7.9 g/dL (6.3-8.2)
[2021-12-03 12:50] LABS: HEMOLYSIS 26 (0-50); Lipase 90 U/L (23-300); Magnesium 1.9 mg/dL (1.6-2.3)
[2021-12-03 12:53] LABS: Prothrombin Time 10.9 SECONDS (10.1-12.7)
[2021-12-03 12:56] LABS: PTT Partial Thromboplastin Tim 31 SECONDS (26-36)
[2021-12-03 13:03] LABS: Troponin I < 0.012 ng/mL (0.01-0.034)
[2021-12-03] MEDS: dilTIAZem 5 MG/ML SDV 10 MG IV (13:03)
--- NOTE | 2021-12-03 13:57 | ED_ITS ---
HPI - Chest Pain General Chief Complaint: Chest Pain Stated Complaint: Surgery on fri, Chest pressure Time Seen by Provider: 12/03/21 11:47 Source: family Mode of arrival: Family Vehicle Limitations: no limitations History of Present Illness HPI narrative: Patient is a 66-year-old healthy female with history of cholecystectomy on 11/28/2020. She started having some chest heaviness and discomfort. Denies shortness of breath fever or chills. He states it is constant it does not radiate currently having chest pain. Is noted to have AFib with RVR on the monitor. Related Data Previous Rx's Medication Instructions Recorded olmesartan 40 mg tablet 40 mg PO DAILY #90 tabs 08/08/21 trospium 20 mg tablet 20 mg PO QAM AND QHS #60 tabs 10/01/21 pantoprazole 40 mg tablet,delayed 40 mg PO DAILY #90 tabs 10/09/21 release acetaminophen 325 mg capsule 650 mg PO QID PRN pain #60 caps 11/28/21 (Tylenol) ibuprofen 200 mg tablet 400 mg PO Q6H #60 tabs 11/28/21 oxycodone 5 mg tablet 5 mg PO Q6H PRN pain #20 tabs 11/28/21 Allergies Allergy/AdvReac Type Severity Reaction Status Date / Time cefuroxime [From Ceftin] Allergy rash, Verified 11/28/21 10:58 irregular heart rhythm Review of Systems Review of Systems Narrative: GENERAL: Denies chills, fatigue, malaise, fever, sweats, travel HEENT: Denies sinus pain, ear pain, sore throat, difficulty swallowing, neck pain RESPIRATORY: Denies dyspnea, cough, wheezing, hemoptysis, sputum. CARDIOVASCULAR: See HPI GASTROINTESTINAL: Denies nausea, vomiting, abdominal pain, diarrhea, constipation, melena. : Denies dysuria, frequency, incontinence, hematuria, urinary retention, flank pain. MUSCULOSKELETAL: Denies weakness, joint pain, or bony pain SKIN: No rash, no erythema, no pruritus NEUROLOGIC: Denies weakness, dizziness, headache, numbness, change in speech, confusion PSYCHIATRIC: No concerning psychosocial issues. 12 point review of systems is negative except for those stated above and HPI Patient History Medical History Perez's esophagus (~2017) Constipation by delayed colonic transit GERD (gastroesophageal reflux disease) (1978) Obesity (BMI 30.0-34.9) Postmenopausal atrophic vaginitis Surgical History History of bladder surgery (~01/2011) History of knee replacement (~05/2016) History of knee surgery (~05/2010) Hx of foot surgery (09/2016) Family History Father Heart disease Hypertension Mother Cancer Hypertension Social History marital status: household members: spouse education level: high school travel history: recurrent seatbelt use: always water heater temp set < 120 deg: Yes working smoke detector in home: Yes fire extinguisher in home: Yes carbon monox detector in home: Yes firearms in home: Yes do you feel safe at home: Yes Smoking Status: Never smoker second hand exposure: No alcohol intake: current substance use type: does not use well-balanced diet: daily or most days daily servings fruits/ve-4 caffeine: Yes eating out: 1-3 times/week Type(s) of exercise: walking and additional frequency: 1-2 times per week duration: 45-60 minutes/day Smoking Status: Never smoker alcohol intake frequency: holidays/special occasions only Substance Use Type: does not use Exam Initial Vital Signs Initial Vital Signs: Vital Signs Pulse Rate 101 H 12/03/21 11:50 Respiratory Rate 26 H 12/03/21 11:50 Pulse Oximetry 98 12/03/21 11:50 GENERAL: Alert pleasant 66-year-old female HEENT: Head atraumatic,EOMI, pupils reactive, face symmetric, [moist] mucous membranes CARDIOVASCULAR: Tachycardic irregular no murmurs RESPIRATORY: Breath sounds equal bilaterally, no wheezes rales or rhonchi. ABDOMEN: Soft, nontender. Normoactive bowel sounds all 4 quadrants. No guarding or rebound. EXTREMITIES: Normal range of motion, no clubbing or edema. Neurovascularly intact NEUROLOGICAL: Alert and oriented x4.Normal gait and speech SKIN: Warm, dry, no laceration, no petechiae, no rashes or lesions. Course Orders Ordered: ED Orders 12/03/21 11:54 XR chest 1V Stat Comprehensive Metabolic Panel Stat Lipase Stat Magnesium Stat Troponin & CK Cardiac Panel Stat EKG-12 Lead Stat 12/03/21 12:00 A1C [Hemoglobin A1C% w Est Avg Glu] Urgent Complete Blood Count AUTO DIFF Stat Lipid Panel Urgent PT [Prothrombin Time INR] Stat PTT [Partial Thromboplastin Time] Stat TSH w/ Reflex to FT4 Urgent 12/03/21 14:27 CT angio chest PE protocol Stat 12/03/21 14:46 EC echo doppler complete Stat 12/03/21 14:47 Education, smoking cessation ONGOING 12/03/21 14:53 COVID19 -Nasal RAPID/Pre-Proc Stat 12/03/21 16:29 Urinalysis and Microscopic Urgent 12/04/21 05:00 CBC Auto Diff [Complete Blood Count AUTO DIFF] DAILY CMP [Comprehensive Metabolic Panel] DAILY 12/05/21 05:00 CBC Auto Diff [Complete Blood Count AUTO DIFF] DAILY CMP [Comprehensive Metabolic Panel] DAILY 12/06/21 05:00 CBC Auto Diff [Complete Blood Count AUTO DIFF] DAILY CMP [Comprehensive Metabolic Panel] DAILY Acetaminophen (Acetaminophen 325 Mg Tablet) 650 mg PO Q6H PRN PRN Reason: Fever/Mild Pain (1-3) Apixaban (Apixaban 5 Mg Tablet) 5 mg PO BID [facility] Last Admin: 12/03/21 16:06 Dose: 5 mg Documented By: EVY Losartan Potassium (Losartan 50 Mg Tablet) 100 mg PO DAILY [facility] Melatonin (Melatonin 3 Mg Tablet) 6 mg PO BEDTIME PRN PRN Reason: Insomnia Metoprolol Tartrate (Metoprolol Ir 25 Mg Tablet) 25 mg PO BID [facility] Naloxone HCl (Naloxone 0.4 Mg/Ml Vial) 0.2 mg IV Q2MIN PRN PRN Reason: Opiate Reversal Oxybutynin Chloride (Oxybutynin 5 Mg Er Tab) 5 mg PO DAILY [facility] Oxycodone HCl (Oxycodone Ir 5 Mg Tablet) 5 mg PO Q6H PRN PRN Reason: pain Pantoprazole Sodium (Pantoprazole Dr 40 Mg Tablet) 40 mg PO DAILY [facility] Polyethylene Glycol (Polyethylene Glycol 3350 17 Gm Powd.Pack) 17 gm PO DAILY PRN PRN Reason: Constipation Sennosides (Sennosides 8.6 Mg Tablet) 8.6 mg PO BID PRN PRN Reason: Constipation Discontinued Medications Diltiazem HCl (Diltiazem 5 Mg/Ml Sdv) 10 mg IV NOW ONE Stop: 12/03/21 12:45 Last Admin: 12/03/21 13:03 Dose: 10 mg Documented By: NR Metoprolol Tartrate (Metoprolol Ir 25 Mg Tablet) 25 mg PO Q6H [facility] Last Admin: 12/03/21 16:09 Dose: Not Given Documented By: KDK Metoprolol Tartrate (Metoprolol Tartrate 5 Mg/5 Ml Inj) 5 mg IV Q5M PRN PRN Reason: HR >130 Stop: 12/03/21 15:56 Vital Signs Vital signs: Vital Signs - 8 hr 12/03/21 11:56 12/03/21 11:50 12/03/21 12:00 Temperature 97.8 F Pulse Rate 148 H 101 H 157 H Respiratory Rate 22 26 H 24 Blood Pressure 186/99 H Pulse Oximetry 95 98 Oxygen Delivery Method Room Air 12/03/21 12:29 12/03/21 12:29 12/03/21 12:30 Temperature Pulse Rate 139 H 136 H Respiratory Rate 12 16 Blood Pressure 167/91 H Pulse Oximetry 98 99 Oxygen Delivery Method 12/03/21 12:31 12/03/21 12:31 12/03/21 13:03 Temperature Pulse Rate 134 H 125 H Respiratory Rate 16 Blood Pressure 141/95 H 162/91 H Pulse Oximetry 99 Oxygen Delivery Method 12/03/21 13:00 12/03/21 13:01 12/03/21 13:01 Temperature Pulse Rate 129 H 130 H Respiratory Rate 13 17 Blood Pressure 162/91 H Pulse Oximetry 99 99 Oxygen Delivery Method 12/03/21 13:10 12/03/21 13:10 12/03/21 13:20 Temperature Pulse Rate 108 H 109 H Respiratory Rate 20 15 Blood Pressure 131/63 Pulse Oximetry 98 97 Oxygen Delivery Method 12/03/21 13:20 12/03/21 13:30 12/03/21 13:30 Temperature Pulse Rate 109 H Respiratory Rate 18 Blood Pressure 139/78 133/76 Pulse Oximetry 98 Oxygen Delivery Method 12/03/21 13:40 12/03/21 13:40 12/03/21 13:50 Temperature Pulse Rate 107 H Respiratory Rate 14 Blood Pressure 136/80 150/81 H Pulse Oximetry 100 Oxygen Delivery Method 12/03/21 13:50 12/03/21 14:00 12/03/21 14:00 Temperature Pulse Rate 107 H 106 H Respiratory Rate 15 16 Blood Pressure 140/80 Pulse Oximetry 99 99 Oxygen Delivery Method 12/03/21 14:10 12/03/21 14:10 12/03/21 14:20 Temperature Pulse Rate 108 H Respiratory Rate 15 Blood Pressure 150/84 H 177/86 H Pulse Oximetry 98 Oxygen Delivery Method 12/03/21 14:20 12/03/21 14:30 12/03/21 14:30 Temperature Pulse Rate 121 H 123 H Respiratory Rate 15 15 Blood Pressure 156/91 H Pulse Oximetry 98 99 Oxygen Delivery Method MDM - Chest Pain Lab Data Result diagrams: 12/03/21 12:00 12/03/21 11:54 Labs: Lab Results 12/03/21 12/03/21 12/03/21 Range/Units 11:54 12:00 12:00 WBC 8.6 (4.5-11.0) X10^3/uL RBC 4.28 (4.0-5.2) X10^6/uL Hgb 12.3 (12.0-16.0) g/dL Hct 36.9 (36-46) % MCV 86.2 (80-100) fL MCH 28.8 (26-34) PG MCHC 33.4 (30-36) % RDW 13.4 (11.6-14.8) % Plt Count 264 (150-400) X10^3/uL Neut % (Auto) 57.4 (50-75) % Lymph % (Auto) 22.5 L (25-40) % Pinal % (Auto) 10.2 (3-14) % Eos % (Auto) 9.6 H (2-4) % Baso % (Auto) 0.3 (0-2) % Neut # (Auto) 4900 (1643-4510) /uL Lymph # (Auto) 1900 (1437-8169) /uL Pinal # (Auto) 900 (0-900) /uL Eos # (Auto) 800 H (0-450) /uL Baso # (Auto) 0 (0-100) /uL PT 10.9 (10.1-12.7) SECONDS INR 1.0 (0.9-1.3) APTT 31 (26-36) SECONDS Sodium 139 (137-145) mmol/L Potassium 3.8 (3.4-5.1) mmol/L Chloride 103 (98-107) mmol/L Carbon Dioxide 26 (22-32) mmol/L BUN 14 (7-17) mg/dL Creatinine 0.86 (0.52-1.04) mg/dL Estimated GFR > 60 (>60) mL/min BUN/Creatinine Ratio 16.3 (6-22) Glucose 100 (80-110) mg/dL Hemoglobin A1c (4.0-6.0) % Calcium 9.4 (8.4-10.2) mg/dL Magnesium 1.9 (1.6-2.3) mg/dL Total Bilirubin 0.6 (0.2-1.3) mg/dL AST 38 H (14-36) IU/L ALT 39 H (<35) IU/L Alkaline Phosphatase 96 (38-126) U/L Total Creatine Kinase 83 (30-135) U/L CK-MB (CK-2) TNP CK-MB (CK-2) Rel Index TNP Troponin I < 0.012 (0.01-0.034) ng/mL Total Protein 7.9 (6.3-8.2) g/dL Albumin 4.2 (3.5-5.0) g/dL Globulin 3.7 (1.7-4.1) g/dL Albumin/Globulin Ratio 1.1 (1.0-2.8) Triglycerides (35-150) mg/dL Cholesterol (140-199) mg/dL LDL Cholesterol, Calc (<100) mg/dL HDL Cholesterol (40-60) mg/dL Lipase 90 (23-300) U/L TSH (0.47-4.68) uIU/mL 12/03/21 12/03/21 12/03/21 Range/Units 12:00 12:00 12:00 WBC (4.5-11.0) X10^3/uL RBC (4.0-5.2) X10^6/uL Hgb (12.0-16.0) g/dL Hct (36-46) % MCV (80-100) fL MCH (26-34) PG MCHC (30-36) % RDW (11.6-14.8) % Plt Count (150-400) X10^3/uL Neut % (Auto) (50-75) % Lymph % (Auto) (25-40) % Pinal % (Auto) (3-14) % Eos % (Auto) (2-4) % Baso % (Auto) (0-2) % Neut # (Auto) (0498-2316) /uL Lymph # (Auto) (0958-3942) /uL Pinal # (Auto) (0-900) /uL Eos # (Auto) (0-450) /uL Baso # (Auto) (0-100) /uL PT (10.1-12.7) SECONDS INR (0.9-1.3) APTT (26-36) SECONDS Sodium (137-145) mmol/L Potassium (3.4-5.1) mmol/L Chloride (98-107) mmol/L Carbon Dioxide (22-32) mmol/L BUN (7-17) mg/dL Creatinine (0.52-1.04) mg/dL Estimated GFR (>60) mL/min BUN/Creatinine Ratio (6-22) Glucose (80-110) mg/dL Hemoglobin A1c 5.6 (4.0-6.0) % Calcium (8.4-10.2) mg/dL Magnesium (1.6-2.3) mg/dL Total Bilirubin (0.2-1.3) mg/dL AST (14-36) IU/L ALT (<35) IU/L Alkaline Phosphatase (38-126) U/L Total Creatine Kinase (30-135) U/L CK-MB (CK-2) CK-MB (CK-2) Rel Index Troponin I (0.01-0.034) ng/mL Total Protein (6.3-8.2) g/dL Albumin (3.5-5.0) g/dL Globulin (1.7-4.1) g/dL Albumin/Globulin Ratio (1.0-2.8) Triglycerides 127 (35-150) mg/dL Cholesterol 194 (140-199) mg/dL LDL Cholesterol, Calc 116 H (<100) mg/dL HDL Cholesterol 53 (40-60) mg/dL Lipase (23-300) U/L TSH 0.88 (0.47-4.68) uIU/mL Urine Dip Bedside Urine Glucose Negative Bedside Urine Bilirubin - Negative Bedside Urine Ketone - Negative Urine Specific Berry 1.005 Bedside Urine Occult Blood - Negative Bedside Urine pH 7.0 Bedside Urine Protein - Negative Bedside Urine Urobilinogen - Negative Bedside Urine Nitrite - Negative Bedside Urine Leukocytes - Negative Esterase Imaging Data Chest x-ray: Radiologist's Impression: Signed Patient: Trini Diaz MR#: [id number] : 1955 Acct:[id number] Age/Sex: 66 / F Date of Service: 12/03/21 Loc: Accession Number: [id number] ?? Procedure: XR chest 1V Ordering Provider: Amelie Bowles D.O. PROCEDURE:? XR CHEST 1V ? INDICATIONS:? chest pain ? TECHNIQUE:? One view of the chest was acquired.? ? COMPARISON:? None. ? FINDINGS:? ? Surgical changes and devices:? None.? ? Lungs and pleura:? Lungs are clear.? No pleural effusions or pneumothorax.? ? Mediastinum:? Mediastinal contours appear normal.? Heart size is normal.? ? Bones and chest wall:? No suspicious bony lesions.? Overlying soft tissues appear unremarkable.? ? IMPRESSION:? No evidence acute pulmonary process. ? ? ? Dictated by: Leonidas Lainez M.D. on 12/03/2021 at 12:26 ? ? CT scan - chest: Radiologist's Impression: [address] [place] [address] CT Scan Report Signed Patient: Trini Diaz MR#: [id number] : 1955 Acct:[id number] Age/Sex: 66 / F Date of Service: 12/03/21 Loc: [place] [address] Accession Number: [id number] ?? Procedure: CT angio chest PE protocol Ordering Provider: Amelie Bowles D.O. PROCEDURE:? CT ANGIO CHEST PE PROTOCOL ? INDICATIONS:? new a.fib ? TECHNIQUE:? After the administration of intravenous contrast, 2 mm thick sections acquired from the pulmonary apices to the posterior costophrenic angles.? 3-dimensional maximum intensity projection (MIP) coronal and sagittal reformats were then acquired through the thorax.? For radiation dose reduction, the following was used:? automated exposure control, adjustment of mA and/or kV according to patient size.? ? COMPARISON:? None. ? FINDINGS:? Image quality:? Excellent.? ? Pulmonary arteries:? Pulmonary arteries are normal in size, and demonstrate no intraluminal filling defects to suggest central pulmonary embolism.? ? Lungs and pleura:? Lungs are clear.? No pleural effusions or pneumothorax.? Central and peripheral airways are patent.? ? Mediastinum:? Heart size is normal, without pericardial effusion.? No mediastinal or hilar adenopathy.? Thoracic aorta is normal in caliber and enhancement.? Esophagus is normal in caliber, without hiatal hernia.? ? Bones and chest wall:? No suspicious bony lesions.? Ribs and thoracic spine appear intact throughout.? Thyroid gland is unremarkable as imaged.? No axillary or supraclavicular adenopathy.? ? Abdomen:? Visualized upper abdominal solid organs appear normal in the early arterial phase of enhancement.? ? IMPRESSION:? ? 1. No evidence acute pulmonary emboli. ? 2. No evidence acute pulmonary process.? ? ? Dictated by: Leonidas Lainez M.D. on 12/03/2021 at 15:05 ? ? Approved by: Leonidas Lainez M.D. on 12/03/2021 at 15:11 ? ECG Data Interpretation: Atrial fibrillation rate [address] changes new from previous EKG MDM Narrative Medical decision making narrative: The patient has had symptoms ongoing for at least 48 hours or more found to be in AFib with RVR. She responded well to Cardizem does not need a drip at this time. She recently had surgery as well. Rate is now controlled but has new onset atrial fibrillation. CT does not show any pulmonary embolism or other cause of her AFib. Dr. Van accepts the patient. Discharge Plan Departure Patient Disposition: Admitted As Inpatient Clinical Impression: New onset a-fib Admit Date/Time: 12/03/21 14:50 Admit Provider: Swapnil Van
--- NOTE | 2021-12-03 14:27 | DI.CT.S_ITS ---
PROCEDURE: CT ANGIO CHEST PE PROTOCOL INDICATIONS: new a.fib TECHNIQUE: After the administration of intravenous contrast, 2 mm thick sections acquired from the pulmonary apices to the posterior costophrenic angles. 3-dimensional maximum intensity projection (MIP) coronal and sagittal reformats were then acquired through the thorax. For radiation dose reduction, the following was used: automated exposure control, adjustment of mA and/or kV according to patient size. COMPARISON: None. FINDINGS: Image quality: Excellent. Pulmonary arteries: Pulmonary arteries are normal in size, and demonstrate no intraluminal filling defects to suggest central pulmonary embolism. Lungs and pleura: Lungs are clear. No pleural effusions or pneumothorax. Central and peripheral airways are patent. Mediastinum: Heart size is normal, without pericardial effusion. No mediastinal or hilar adenopathy. Thoracic aorta is normal in caliber and enhancement. Esophagus is normal in caliber, without hiatal hernia. Bones and chest wall: No suspicious bony lesions. Ribs and thoracic spine appear intact throughout. Thyroid gland is unremarkable as imaged. No axillary or supraclavicular adenopathy. Abdomen: Visualized upper abdominal solid organs appear normal in the early arterial phase of enhancement. IMPRESSION: 1. No evidence acute pulmonary emboli. 2. No evidence acute pulmonary process. Dictated by: Leonidas Lainez M.D. on 12/03/2021 at 15:05 Approved by: Leonidas Lainez M.D. on 12/03/2021 at 15:11
--- NOTE | 2021-12-03 14:46 | DI.ECHO.S_ITS ---
[facility] +---------+ : : [address] [address] : : : : [id number] : : : : Phone: [phone]+ Echocardiogram Report + + :Name: ELIZABETH BEDOLLA Study Date: 12/04/2021 Height: 68 in : :[facility] ReadingLocation: Weight: 196 lb : : Gender: Female BSA: 2.0 m2 : :: 1955 Age: 66 yrs BP: 137/83 mmHg: :Reason For Study: ATRIAL FIBRILLATION WITH RVR : :Ordering Physician: PERFECTO, : :NEISHA Michel D.O. Performed By: Myla De Anda : :Referring: NEISHA GROVE D.O : + + Interpretation Summary The patient was in sinus rhythm with heart rates between 60-63 bpm during the exam. The ejection fraction is estimated to be 55-60%. Diastolic parameters suggest a relaxation abnormality of the left ventricle, consistent with probable normal filling pressures. The right ventricle is normal in size and function. The right ventricular systolic pressure is estimated to be at least 19 mmHg based on an estimated right atrial pressure of 3 mm Hg. No significant valvular disease. Procedure: A two-dimensional transthoracic echocardiogram with color flow and Doppler was performed. The study quality was technically adequate. There is no prior echocardiogram noted for this patient. The patient was in sinus rhythm with heart rates between 60-63 bpm during the exam. Left Ventricle: The left ventricle is normal in size and wall thickness. The ejection fraction is estimated to be 55-60%. There are no focal wall motion abnormalities. Diastolic parameters suggest a relaxation abnormality of the left ventricle, consistent with probable normal filling pressures. Right Ventricle: The right ventricle is normal in size and function. Atria: The left atrium is mildly dilated. Right atrial size is normal. There is no Doppler evidence for an interatrial shunt. Mitral Valve: The mitral valve is normal in structure and function. There is no mitral regurgitation noted. Aortic Valve: The aortic valve is trileaflet. The aortic valve opens well. There is no aortic valve stenosis. No aortic regurgitation is present. Tricuspid Valve: The tricuspid valve is normal in structure and function. There is trace tricuspid regurgitation. The right ventricular systolic pressure is estimated to be at least 19 mmHg based on an estimated right atrial pressure of 3 mm Hg. Pulmonic Valve: The pulmonic valve leaflets are thin and pliable; valve motion is normal. There is no pulmonic valvular regurgitation. Great Vessels: The aortic root is normal size. The dimensions of the ascending aorta are normal. The IVC is of normal diameter and collapses greater than 50% with a sniff. This suggests a low right atrial pressure of 3 mm Hg. Pericardium/ Pleura There is no pericardial effusion. There is no pleural effusion. MMode/2D Measurements & Calculations LVIDd: 4.4 cm LVOT diam: 2.1 cm LVIDs: 2.7 cm Ao root diam: 3.3 cm FS: 38.5 % asc Aorta Diam: 3.1 cm EPSS: 1.2 cm Ao Arch Diam (Prox Trans): 3.0 cm IVSd: 0.75 cm LVPWd: 0.93 cm LV childers. diameter/BSA (cm/m^2): 2.2 LV sys. diameter/BSA (cm/m^2): 1.3 LA A2 area: 24.3 cm2 RA long axis: 4.9 cm LA A4 area: 21.1 cm2 RA area: 15.1 cm2 LA length (vol): 5.8 cm RA vol: 39.4 ml LA vol: 75.7 ml RA : 19.4 ml/m2 LA vol index: 37.3 ml/m2 IVC diam: 1.5 cm RVD1 (basal): 3.1 cm RVD2 (mid): 3.1 cm TAPSE: 1.6 cm Doppler Measurements & Calculations Ao V2 max: 126.1 cm/sec LVOT Max Kamlesh: 80.9 cm/sec Ao V2 mean: 97.5 cm/sec LV V1 max P.6 mmHg Ao max P.4 mmHg LV V1 VTI: 15.7 cm Ao mean P.0 mmHg JEWELL(I,D): 1.9 cm2 Ao V2 VTI: 28.9 cm JEWELL(V,D): 2.2 cm2 sev ratio: 0.54 JEWELL indexed to BSA (cm^2/m^2): 0.93 MV E max kamlesh: 69.7 cm/sec TR max kamlesh: 197.4 cm/sec MV A max kamlesh: 65.2 cm/sec TR max P.6 mmHg MV E/A: 1.1 PA V2 max: 84.4 cm/sec Med Peak E' Kamlesh: 5.6 cm/sec PA V2 mean: 59.2 cm/sec E/E' med: 12.4 PA mean P.5 mmHg Lat Peak E' Kamlesh: 9.4 cm/sec PA pr(Accel): 29.3 mmHg E/E' lat: 7.4 E/e' average: 9.9 MV dec time: 0.22 sec SV(LVOT): 54.5 ml Reading Physician:MANUELA
--- NOTE | 2021-12-03 14:54 | P.HP_ITS ---
History of Present Illness History of Present Illness Date Patient Seen: 12/03/21 Time Patient Seen: 16:25 Chief complaint: Surgery on wed, Chest pressure Narrative: Trini Diaz is a 66yo F with PMH of recent gallbladder removal on 11/28, Perez's esophagus, GERD, obesity and HTN who presents with chest discomfort and found to be in A-fib RVR with rate of 157. Patient had gallbladder surgery removal on Wednesday last week and then Wednesday developed chest tightness with rapid fluttering in her chest. She thought it was related to the oxycodone pain medication which she was given after surgery so she did not think much of it but it persisted for 3 days until she presented to the ED. patient states she can feel the rapid rate thumping all the way up to her head and it scared her. She denies any history of CAROLIN, alcohol use, tobacco use or previous cardiac history other than hypertension. She states her gallbladder surgery went well other than increased postop nausea and vomiting. She denies any family history of atrial fibrillation. In the ED patient had a negative troponin, BP 146/76, heart rate 148. Chest x- ray normal and CTA chest without PE. Patient History Medical History Perez's esophagus (~2016) Constipation by delayed colonic transit GERD (gastroesophageal reflux disease) (1978) Obesity (BMI 30.0-34.9) Postmenopausal atrophic vaginitis Surgical History History of bladder surgery (~01/2011) History of knee replacement (~05/2016) History of knee surgery (~05/2010) Hx of foot surgery (09/2016) Family & Social History Family History Father Heart disease Hypertension Mother Cancer Hypertension Social History: household members spouse Safety & Behavioral: Feels Safe in Current Yes Environment Been Physically Hurt or No Threatened By a Person Tobacco & Substance use: Smoking Status Never smoker alcohol intake current alcohol intake frequency holiday/special occasion Substance Use Type does not use Meds Home Medications and Allergies Home Medications Medication Instructions Recorded Confirmed Type olmesartan 40 mg tablet 40 mg PO DAILY #90 tabs 08/08/21 12/03/21 Rx trospium 20 mg tablet 20 mg PO QAM AND QHS #60 tabs 10/01/21 12/03/21 Rx pantoprazole 40 mg tablet,delayed 40 mg PO DAILY #90 tabs 10/09/21 12/03/21 Rx release acetaminophen 325 mg capsule 650 mg PO QID PRN pain #60 caps 11/28/21 12/03/21 Rx (Tylenol) ibuprofen 200 mg tablet 400 mg PO Q6H #60 tabs 11/28/21 12/03/21 Rx oxycodone 5 mg tablet 5 mg PO Q6H PRN pain #20 tabs 11/28/21 12/03/21 Rx Allergies Allergy/AdvReac Type Severity Reaction Status Date / Time cefuroxime [From Ceftin] Allergy rash, Verified 11/28/21 10:58 irregular heart rhythm Review of Systems Review of Systems Narrative: All other systems reviewed with the patient and are negative unless otherwise stated. Exam Vital Signs (past 8 hours): - 12/03/21 11:56 12/03/21 11:50 12/03/21 12:00 Temperature 97.8 F Pulse Rate 148 H 101 H 157 H Respiratory Rate 22 26 H 24 Blood Pressure 186/99 H Pulse Oximetry 95 98 Oxygen Delivery Method Room Air 12/03/21 12:29 12/03/21 12:29 12/03/21 12:30 Temperature Pulse Rate 139 H 136 H Respiratory Rate 12 16 Blood Pressure 167/91 H Pulse Oximetry 98 99 Oxygen Delivery Method 12/03/21 12:31 12/03/21 12:31 12/03/21 13:03 Temperature Pulse Rate 134 H 125 H Respiratory Rate 16 Blood Pressure 141/95 H 162/91 H Pulse Oximetry 99 Oxygen Delivery Method 12/03/21 13:00 12/03/21 13:01 12/03/21 13:01 Temperature Pulse Rate 129 H 130 H Respiratory Rate 13 17 Blood Pressure 162/91 H Pulse Oximetry 99 99 Oxygen Delivery Method 12/03/21 13:10 12/03/21 13:10 12/03/21 13:20 Temperature Pulse Rate 108 H 109 H Respiratory Rate 20 15 Blood Pressure 131/63 Pulse Oximetry 98 97 Oxygen Delivery Method 12/03/21 13:20 12/03/21 13:30 12/03/21 13:30 Temperature Pulse Rate 109 H Respiratory Rate 18 Blood Pressure 139/78 133/76 Pulse Oximetry 98 Oxygen Delivery Method Oxygen Delivery Method Room Air Narrative Exam Narrative: GEN: no acute distress, anxious HEENT: moist mucous membranes, PERRL NECK: trachea midline, no JVD CV: tachycardic, irregularly irregular, no murmurs PULM: clear bilaterally ABD: soft, nontender, nondistended, no organomegaly EXT: warm and well perfused with no edema NEURO: awake, alert, oriented, no focal deficits Objective Labs Result Diagrams: 12/03/21 12:00 12/03/21 11:54 Labs: Laboratory Results - last 24 hr 12/03/21 12/03/21 12/03/21 11:54 12:00 12:00 WBC 8.6 RBC 4.28 Hgb 12.3 Hct 36.9 MCV 86.2 MCH 28.8 MCHC 33.4 RDW 13.4 Plt Count 264 Neut % (Auto) 57.4 Lymph % (Auto) 22.5 L [place] % (Auto) 10.2 Eos % (Auto) 9.6 H Baso % (Auto) 0.3 Neut # (Auto) 4900 Lymph # (Auto) 1900 [place] # (Auto) 900 Eos # (Auto) 800 H Baso # (Auto) 0 PT 10.9 INR 1.0 APTT 31 Sodium 139 Potassium 3.8 Chloride 103 Carbon Dioxide 26 BUN 14 Creatinine 0.86 Estimated GFR > 60 BUN/Creatinine Ratio 16.3 Glucose 100 Calcium 9.4 Magnesium 1.9 Total Bilirubin 0.6 AST 38 H ALT 39 H Alkaline Phosphatase 96 Total Creatine Kinase 83 CK-MB (CK-2) TNP CK-MB (CK-2) Rel Index TNP Troponin I < 0.012 Total Protein 7.9 Albumin 4.2 Globulin 3.7 Albumin/Globulin Ratio 1.1 Lipase 90 Assessment & Plan Assessment & Plan narrative: # new-onset A-fib RVR -HR up to 157 in ED, A-fib confirmed on ECG. hemodynamically stable. CTA chest negative for PE or PNA. -received dilt pushes in ED with improvement to 110's -start metoprolol 25mg BID and titrate up with goal HR <110 -start eliquis given [id number] of 3 -obtain echo -check TSH, A1c, lipids, UA -telemetry # history of recent lap frederick -done by Dr. Francisco on 11/28 -likely account for elevated LFT's -monitor CMP's # HTN, chronic -continue home olmesartan # GERD, chronic -continue home PPI Code status is full code. COVID negative. DVT prophylaxis with apixaban. Proxy is spouse Epi. I have reviewed home meds and used all available resources to reconcile the home meds. This patient will be admitted as inpatient and will require greater than 2 midnights of hospital time to treat atrial fibrillation with RVR. Time Spent With Patient Critical Care time: I spent a total of [] minutes of critical care time on this patient's care today; this time is exclusive of procedural time.
[2021-12-03 15:21] LABS: Cholesterol 194 mg/dL (140-199); HDL Cholesterol 53 mg/dL (40-60); LDL Cholesterol Calculated 116 mg/dL (<100); Triglycerides 127 mg/dL (35-150)
[2021-12-03 15:23] LABS: Hemoglobin A1C% w Est Avg Glu 5.6 % (4.0-6.0)
[2021-12-03 15:44] LABS: COVID19 -Nasal RAPID Negative (Negative)
[2021-12-03 15:53] LABS: TSH w/ Reflex to FT4 0.88 uIU/mL (0.47-4.68)
[2021-12-03] MEDS: APIXABAN 5 MG TABLET PO (16:06)
[2021-12-03] MEDS: METOPROLOL IR 25 MG TABLET PO (21:12)
[2021-12-03 22:41] LABS: Appearance Urine UA CLEAR; Bilirubin Urine UA NEGATIVE (NEGATIVE); Color Urine UA YELLOW; Glucose Urine UA NEGATIVE (Negative); Ketones Urine UA NEGATIVE (NEGATIVE); Leukocyte Esterase Urine UA 1+ (NEGATIVE); Nitrite Urine UA NEGATIVE (Negative); Occult Blood Urine UA TRACE-LYSED (Negative); Protein Urine UA NEGATIVE (Negative); Urobilinogen Urine UA 0.2 E.U./dL (0.2)
[2021-12-04] VITALS (9 sets, daily range): BP systolic 86–147; BP diastolic 54–86; PULSE 59–76; RESP 16–18; TEMP 37.1–37.3; O2SAT 97–99
[2021-12-04 00:10] LABS: RBC Urine 0-1/HPF (0-5/HPF); WBC Urine 0-1/HPF (0-5/HPF)
[2021-12-04 00:11] LABS: Bacteria Urine None Seen; Culture Indicated Urine Specimen Cultured
[2021-12-04 07:20] LABS: Add Manual Diff / Slide Review NO; Basophils Absolute Auto 100 /uL (0-100); Eosinophils Absolute Auto 700 /uL (0-450); Hematocrit 35.6 % (36-46); Hemoglobin 11.9 g/dL (12.0-16.0); Lymphocytes Absolute Auto 1400 /uL (1100-4500); Lymphocytes Percent Auto 21.3 % (25-40); Mean Corpuscular HGB Conc 33.5 % (30-36); Mean Corpuscular Volume 86.7 fL (80-100); Monocytes Absolute Auto 700 /uL (0-900); Neutrophils Absolute Auto 3800 /uL (1500-7000); Neutrophils Percent Auto 56.7 % (50-75); Platelet Count 248 X10^3/uL (150-400); Red Blood Cell Count 4.11 X10^6/uL (4.0-5.2); Red Cell Distribution Width 13.5 % (11.6-14.8); White Blood Cell Count 6.7 X10^3/uL (4.5-11.0)
[2021-12-04 07:36] LABS: Alanine Aminotransferase 31 IU/L (<35); Albumin 3.6 g/dL (3.5-5.0); Albumin Globulin Ratio 1.1 (1.0-2.8); Alkaline Phosphatase 80 U/L (38-126); Aspartate Aminotransferase 30 IU/L (14-36); BUN Creatinine Ratio 16.1 (6-22); Bilirubin Total 0.5 mg/dL (0.2-1.3); Blood Urea Nitrogen 15 mg/dL (7-17); Calcium 8.9 mg/dL (8.4-10.2); Carbon Dioxide 28 mmol/L (22-32); Chloride 105 mmol/L (98-107); Estimated Glomerular Filt Rate > 60 mL/min (>60); Globulin 3.3 g/dL (1.7-4.1); Glucose 100 mg/dL (80-110); HEMOLYSIS < 15 (0-50); Potassium 4.3 mmol/L (3.4-5.1); Sodium 139 mmol/L (137-145); Total Protein 6.9 g/dL (6.3-8.2)
--- NOTE | 2021-12-04 07:42 | PM.DS.1 ---
History of Present Illness History of Present Illness Date Patient Seen: 12/04/21 Time Patient Seen: 14:00 Chief complaint: Surgery on wed, Chest pressure Narrative: Trini Diaz is a 66yo F with PMH of recent gallbladder removal on 11/28, Perez's esophagus, GERD, obesity and HTN who presents with chest discomfort and found to be in A-fib RVR with rate of 157. Patient had gallbladder surgery removal on Wednesday last week and then Wednesday developed chest tightness with rapid fluttering in her chest. She thought it was related to the oxycodone pain medication which she was given after surgery so she did not think much of it but it persisted for 3 days until she presented to the ED. patient states she can feel the rapid rate thumping all the way up to her head and it scared her. She denies any history of CAROLIN, alcohol use, tobacco use or previous cardiac history other than hypertension. She states her gallbladder surgery went well other than increased postop nausea and vomiting. She denies any family history of atrial fibrillation. In the ED patient had a negative troponin, BP 146/76, heart rate 148. Chest x-ray normal and CTA chest without PE. Discharge Providers Provider Date of admission: 12/03/21 14:50 Discharge Date: 12/04/21 Primary care physician: Dudley Bass MD Discharge provider: Swapnil Van DO Summary Hospital Course Discharge Diagnosis: # new-onset A-fib with RVR component resolved -HR up to 157 in ED, A-fib confirmed on ECG. hemodynamically stable. CTA chest negative for PE or PNA. -received dilt pushes in ED with improvement to 110's -start metoprolol 25mg BID, converted to sinus ajith so lowered to metop 12.5mg BID -started DOAC given [id number] of 3 -sent xarelto as was $47 with pt insurance compared to $480 for eliquis -echo showed EF 55-60% with diastolic dysfunction and normal LV and RV size/function. No valvular abnormalities -TSH normal at 0.88, A1c 5.5%, lipids with LDL 116, UA negative # history of recent lap frederick -done by Dr. Francisco on 11/28 -likely account for elevated LFT's -monitor CMP's # HTN, chronic -continued home olmesartan # GERD, chronic -continued home PPI Hospital Course: Admitted for A-fib RVR new onset which converted to sinus rhythm with oral metoprolol. Patient's [id number] was 3 so started on xarelto daily. Echo was normal. She had no other risk factors to attribute such as CAROLIN or alcohol use but may have been triggered by recent lap frederick surgery. She will f/u with PCP for a cardiology referral to see Dr. Pino at [facility]. Time Spent with Patient Time spent: Greater than 30 minutes Exam Vital Signs (past 8 hours): - 12/04/21 00:38 12/04/21 05:00 Temperature 98.8 F 99 F Pulse Rate 68 68 Respiratory Rate 16 16 Blood Pressure 111/70 137/76 Pulse Oximetry 98 99 Oxygen Flow Rate 0 0 Oxygen Delivery Method Room Air Oxygen Flow Rate 0 Narrative Exam Narrative: GEN: no acute distress, anxious HEENT: moist mucous membranes, PERRL NECK: trachea midline, no JVD CV: tachycardic, irregularly irregular, no murmurs PULM: clear bilaterally ABD: soft, nontender, nondistended, no organomegaly EXT: warm and well perfused with no edema NEURO: awake, alert, oriented, no focal deficits Objective Labs Result Diagrams: 12/04/21 06:52 12/04/21 06:52 Labs: Laboratory Results - last 24 hr 12/03/21 12/03/21 12/03/21 11:54 12:00 12:00 WBC 8.6 RBC 4.28 Hgb 12.3 Hct 36.9 MCV 86.2 MCH 28.8 MCHC 33.4 RDW 13.4 Plt Count 264 Neut % (Auto) 57.4 Lymph % (Auto) 22.5 L [place] % (Auto) 10.2 Eos % (Auto) 9.6 H Baso % (Auto) 0.3 Neut # (Auto) 4900 Lymph # (Auto) 1900 [place] # (Auto) 900 Eos # (Auto) 800 H Baso # (Auto) 0 PT 10.9 INR 1.0 APTT 31 Sodium 139 Potassium 3.8 Chloride 103 Carbon Dioxide 26 BUN 14 Creatinine 0.86 Estimated GFR > 60 BUN/Creatinine Ratio 16.3 Glucose 100 Hemoglobin A1c Calcium 9.4 Magnesium 1.9 Total Bilirubin 0.6 AST 38 H ALT 39 H Alkaline Phosphatase 96 Total Creatine Kinase 83 CK-MB (CK-2) TNP CK-MB (CK-2) Rel Index TNP Troponin I < 0.012 Total Protein 7.9 Albumin 4.2 Globulin 3.7 Albumin/Globulin Ratio 1.1 Triglycerides Cholesterol LDL Cholesterol, Calc HDL Cholesterol Lipase 90 TSH Urine Color Urine Appearance Urine pH Ur Specific [place] Urine Protein Urine Glucose (UA) Urine Ketones Urine Occult Blood Urine Nitrate Urine Bilirubin Urine Urobilinogen Ur Leukocyte Esterase Urine RBC Urine WBC Urine Bacteria Ur Culture Indicated? SARS-CoV-2 (PCR) 12/03/21 12/03/21 12/03/21 12:00 12:00 12:00 WBC RBC Hgb Hct MCV MCH MCHC RDW Plt Count Neut % (Auto) Lymph % (Auto) [place] % (Auto) Eos % (Auto) Baso % (Auto) Neut # (Auto) Lymph # (Auto) [place] # (Auto) Eos # (Auto) Baso # (Auto) PT INR APTT Sodium Potassium Chloride Carbon Dioxide BUN Creatinine Estimated GFR BUN/Creatinine Ratio Glucose Hemoglobin A1c 5.6 Calcium Magnesium Total Bilirubin AST ALT Alkaline Phosphatase Total Creatine Kinase CK-MB (CK-2) CK-MB (CK-2) Rel Index Troponin I Total Protein Albumin Globulin Albumin/Globulin Ratio Triglycerides 127 Cholesterol 194 LDL Cholesterol, Calc 116 H HDL Cholesterol 53 Lipase TSH 0.88 Urine Color Urine Appearance Urine pH Ur Specific [place] Urine Protein Urine Glucose (UA) Urine Ketones Urine Occult Blood Urine Nitrate Urine Bilirubin Urine Urobilinogen Ur Leukocyte Esterase Urine RBC Urine WBC Urine Bacteria Ur Culture Indicated? SARS-CoV-2 (PCR) 12/03/21 12/03/21 12/04/21 14:53 22:10 06:52 WBC RBC Hgb Hct MCV MCH MCHC RDW Plt Count Neut % (Auto) Lymph % (Auto) [place] % (Auto) Eos % (Auto) Baso % (Auto) Neut # (Auto) Lymph # (Auto) [place] # (Auto) Eos # (Auto) Baso # (Auto) PT INR APTT Sodium 139 Potassium 4.3 Chloride 105 Carbon Dioxide 28 BUN 15 Creatinine 0.93 Estimated GFR > 60 BUN/Creatinine Ratio 16.1 Glucose 100 Hemoglobin A1c Calcium 8.9 Magnesium Total Bilirubin 0.5 AST 30 ALT 31 Alkaline Phosphatase 80 Total Creatine Kinase CK-MB (CK-2) CK-MB (CK-2) Rel Index Troponin I Total Protein 6.9 Albumin 3.6 Globulin 3.3 Albumin/Globulin Ratio 1.1 Triglycerides Cholesterol LDL Cholesterol, Calc HDL Cholesterol Lipase TSH Urine Color Yellow Urine Appearance Clear Urine pH 8.0 Ur Specific [place] 1.010 Urine Protein Negative Urine Glucose (UA) Negative Urine Ketones Negative Urine Occult Blood Trace-lysed Urine Nitrate Negative Urine Bilirubin Negative Urine Urobilinogen 0.2 Ur Leukocyte Esterase 1+ H Urine RBC 0-1/hpf Urine WBC 0-1/hpf Urine Bacteria None seen Ur Culture Indicated? Specimen cultured SARS-CoV-2 (PCR) Negative 12/04/21 06:52 WBC 6.7 RBC 4.11 Hgb 11.9 L Hct 35.6 L MCV 86.7 MCH 29.0 MCHC 33.5 RDW 13.5 Plt Count 248 Neut % (Auto) 56.7 Lymph % (Auto) 21.3 L [place] % (Auto) 10.0 Eos % (Auto) 11.0 H Baso % (Auto) 1.0 Neut # (Auto) 3800 Lymph # (Auto) 1400 [place] # (Auto) 700 Eos # (Auto) 700 H Baso # (Auto) 100 PT INR APTT Sodium Potassium Chloride Carbon Dioxide BUN Creatinine Estimated GFR BUN/Creatinine Ratio Glucose Hemoglobin A1c Calcium Magnesium Total Bilirubin AST ALT Alkaline Phosphatase Total Creatine Kinase CK-MB (CK-2) CK-MB (CK-2) Rel Index Troponin I Total Protein Albumin Globulin Albumin/Globulin Ratio Triglycerides Cholesterol LDL Cholesterol, Calc HDL Cholesterol Lipase TSH Urine Color Urine Appearance Urine pH Ur Specific [place] Urine Protein Urine Glucose (UA) Urine Ketones Urine Occult Blood Urine Nitrate Urine Bilirubin Urine Urobilinogen Ur Leukocyte Esterase Urine RBC Urine WBC Urine Bacteria Ur Culture Indicated? SARS-CoV-2 (PCR) [facility] Medical History Perez's esophagus (~2016) Constipation by delayed colonic transit GERD (gastroesophageal reflux disease) (1978) Obesity (BMI 30.0-34.9) Postmenopausal atrophic vaginitis Surgical History History of bladder surgery (~01/2011) History of knee replacement (~05/2016) History of knee surgery (~05/2010) Hx of foot surgery (09/2016) Family History Father Heart disease Hypertension Mother Cancer Hypertension Social History marital status: household members: spouse education level: high school travel history: recurrent seatbelt use: always water heater temp set < 120 deg: Yes working smoke detector in home: Yes fire extinguisher in home: Yes carbon monox detector in home: Yes firearms in home: Yes do you feel safe at home: Yes Smoking Status: Never smoker second hand exposure: No alcohol intake: current substance use type: does not use well-balanced diet: daily or most days daily servings fruits/ve-4 caffeine: Yes eating out: 1-3 times/week Type(s) of exercise: walking and additional frequency: 1-2 times per week duration: 45-60 minutes/day Discharge Plan Discharge Plan Patient Disposition: Home Provider Discharge Comment: You were admitted for Atrial fibrillation which is a heart condition where your heart beats much faster than it should in an irregular rhythm. We controlled this with medications to slow your heart rate as well as blood thinners to prevent clots from forming in the heart which can lead to stroke. You should get a referral to see a acute care certified nursing assistant from your PCP. If you experience this fast heart rate sensation again and check your pulse and it is >110 then you may take an extra dose of metoprolol. Your heart echo looked great with normal function. Discharge orders & Medications Prescriptions: New Xarelto 20 mg tablet 20 mg PO QPM Qty: 30 0RF Rx Instructions: must administer with evening meal metoprolol tartrate 25 mg tablet 12.5 mg PO BID Qty: 60 0RF Continued pantoprazole 40 mg tablet,delayed release (DR/EC) 40 mg PO DAILY Qty: 90 2RF olmesartan 40 mg tablet 40 mg PO DAILY Qty: 90 3RF trospium 20 mg tablet 20 mg PO QAM AND QHS Qty: 60 6RF Rx Instructions: administer on an empty stomach ibuprofen 200 mg tablet 400 mg PO Q6H Qty: 60 0RF acetaminophen [Tylenol] 325 mg capsule 650 mg PO QID PRN (Reason: pain) Qty: 60 0RF oxycodone 5 mg tablet 5 mg PO Q6H PRN (Reason: pain) Qty: 20 0RF Follow up/Referrals: Dudley Bass MD [Primary Care Provider] - 12/17/21 10:00 am (appt:12/17 @ 10:00 with check in 15 min prior to scheduled appointment time ) Visit Report/Discharge Packet Instructions: DI for Atrial Fibrillation Discharge Data Primary Care Provider: Dudley Bass Quality VTE Deep Vein Thrombosis/Pulmonary Embolism Present on Admission: No
[2021-12-04] MEDS: LOSARTAN 50 MG TABLET 100 MG PO (09:47)
[2021-12-04] MEDS: APIXABAN 5 MG TABLET PO (09:48)
[2021-12-04] MEDS: METOPROLOL IR 25 MG TABLET PO (09:49)
[2021-12-04] MEDS: PANTOPRAZOLE DR 40 MG TABLET PO (09:49)
[2021-12-04] MEDS: SENNOSIDES 8.6 MG TABLET PO (10:30)
--- NOTE | 2021-12-04 13:24 | CM.DANOTE ---
DCP: Case received, EMR reviewed and met with patient. Patient's spouse, Epi was at bedside, along with daughter and grandson. Introduced self and role. Was able to complete DCP assessment based upon information currently available. Patient is a 66 year old female who admitted yesterday afternoon to the care of the hospitalist team. PCP: Dr. Bass. Payer: confirmed: Medicare/[facility]. Patient came to the hospital via private vehicle secondary to having chest heaviness, rapid heart beat. Patient had been here recently, on 11/28, with a cholecystectomy. Patient was noted to have afib with RVR. Met with patient in her room. She is alert and oriented, pleasant. Confirmed that she resides here in [place] with her spouse, Epi. She is retired, confirmed also that Dr. Bass is her primary care provider. She is independent at her baseline. P: Patient has discharge orders for home today with no needs. Jaqui Russ RN/Trimming Machine Operator Discharge Planning/Care Management CM Discharge Assessment Start: 12/04/21 13:22 Freq: Status: Active Protocol: Document 12/04/21 13:22 (Rec: 12/04/21 13:24 [id number]) Discharge Planning Assessment Advance Directives? No History Provided By Patient,Medical Record Prior Living Arrangements House Household Members spouse Type of transporation used prior to Drives own vehicle admit Independent with ADL's Yes Is patient alert and oriented? Yes Caregiver for Another No Barriers to Discharge No Discharge Plan Home Transportation Arrangement Spouse Referrals Initiated None needed Whiteboard Updated in Patient Room with Yes name and ext. # of Supervisor Dry Cleaning Review Status In Process Next Review Type Continued Stay Review
--- NOTE | 2021-12-04 14:42 | PC.NURSE ---
Pt discharged home with all belongings including cellphone and clothing. Pt A&Ox4, pt was able to ambulate out to the car with her and METHODS ANALYST DATA PROCESSING. Pt was offered a wheelchair but pt preferred to walk out. All questions answered, pt verbalized understanding of when to seek care at the ED, when to call 911, how to take all medications, and to follow up with PCP and to get established with a teasel setter. Explained to the pt that she may bleed easier, bruise easier due the new blood thinner medication, xarelto. Pt verbalized understanding that with any head injury while on a blood thinner that she needs to be evaluted in the ED and for any uncontrolled or prolonged bleeding that she should seek care at the closest ED. Pt verbalized understanding of what s/sx to watch out for a stroke, SD, rapid HR, syncope, new onset SOB and/or dizziness.
== END 2021-12-04 14:40 | disposition home or self-care (01) | DRG 310 ==
LOC: ED 11:47 → AC 14:52
PROVIDERS: Admitting Provider Student in an Organized Health Care Education/Training Program; Emergency Provider Emergency Medicine; PCP Student in an Organized Health Care Education/Training Program; Referring Provider Emergency Medicine; Visit Provider Student in an Organized Health Care Education/Training Program
DX: I48.91 Unspecified atrial fibrillation (principal); I10 Essential (primary) hypertension; K21.9 Gastro-esophageal reflux disease without esophagitis; K22.70 Barrett's esophagus without dysplasia; Z20.822 Contact with and (suspected) exposure to COVID-19; Z98.890 Other specified postprocedural states
CPT/HCPCS: 36415; 71045; 71275; 80053; 80061; 81001; 81003; 82550; 83036; 83690; 83735; 84443; 84484; 85025; 85610; 85730; 87086; 87635; 93005; 93306; 96374; 99284; 99285; C9803; Q9967

== ENCOUNTER → 2022-01-13 17:21 | Outpatient (CLI) | payer MEDICARE, OTHER, SELFPAY ==
[2021-12-03 15:40] VITALS: BMI 28.6
[2022-01-14 09:56] LABS: Appearance Urine UA CLEAR; Bilirubin Urine UA NEGATIVE (NEGATIVE); Color Urine UA YELLOW; Glucose Urine UA TRACE g/dL (Negative); Ketones Urine UA NEGATIVE (NEGATIVE); Leukocyte Esterase Urine UA 2+ (NEGATIVE); Nitrite Urine UA POSITIVE (Negative); Occult Blood Urine UA NEGATIVE (Negative); Protein Urine UA NEGATIVE (Negative); Urobilinogen Urine UA 0.2 E.U./dL (0.2)
[2022-01-14 10:50] LABS: Bacteria Urine None Seen; Culture Indicated Urine Specimen Cultured; RBC Urine None Seen (0-5/HPF); Squamous Epithelial Cell Urine 1-5 /HPF (0-5/HPF); WBC Urine 0-1/HPF (0-5/HPF)
== END ==
PROVIDERS: PCP Student in an Organized Health Care Education/Training Program; Referring Provider Obstetrics & Gynecology; Visit Provider Obstetrics & Gynecology
DX: R30.0 Dysuria (principal)
CPT/HCPCS: 81001; 87086

== ENCOUNTER → 2022-03-21 11:09 | Outpatient (CLI) | payer MEDICARE, OTHER, SELFPAY ==
[2021-12-03 15:40] VITALS: BMI 28.6
== END ==
PROVIDERS: PCP Family Medicine; Visit Provider Physician Assistant
DX: R30.0 Dysuria (principal)
CPT/HCPCS: 87077; 87086; 87186

== ENCOUNTER → 2022-07-09 06:59 | Outpatient (CLI) | payer MEDICARE, OTHER, SELFPAY ==
[2021-12-03 15:40] VITALS: BMI 28.6
[2022-07-09 08:39] LABS: Hematocrit 35.1 % (36-46); Mean Corpuscular HGB Conc 34.1 % (30-36); Mean Corpuscular Hemoglobin 30.5 PG (26-34); Mean Corpuscular Volume 89.3 fL (80-100); Platelet Count 251 X10^3/uL (150-400); Red Blood Cell Count 3.93 X10^6/uL (4.0-5.2); White Blood Cell Count 4.8 X10^3/uL (4.5-11.0)
[2022-07-09 08:43] LABS: Alanine Aminotransferase 32 IU/L (<35); Albumin Globulin Ratio 1.3 (1.0-2.8); Alkaline Phosphatase 79 U/L (38-126); Aspartate Aminotransferase 36 IU/L (14-36); BUN Creatinine Ratio 12.6 (6-22); Bilirubin Total 0.6 mg/dL (0.2-1.3); Blood Urea Nitrogen 12 mg/dL (7-17); Calcium 9.1 mg/dL (8.4-10.2); Carbon Dioxide 30 mmol/L (22-32); Chloride 104 mmol/L (98-107); Cholesterol 191 mg/dL (140-199); Estimated Glomerular Filt Rate > 60 mL/min (>60); Globulin 3.1 g/dL (1.7-4.1); Glucose 88 mg/dL (80-110); HDL Cholesterol 64 mg/dL (40-60); HEMOLYSIS < 15 (0-50); LDL Cholesterol Calculated 102 mg/dL (<100); Potassium 4.5 mmol/L (3.4-5.1); Sodium 138 mmol/L (137-145); Total Protein 7.1 g/dL (6.3-8.2); Triglycerides 125 mg/dL (35-150)
[2022-07-09 08:58] LABS: Vitamin D 25 Hydroxy (D3) 30.5 ng/mL (30.0-100.0)
[2022-07-09 10:37] LABS: Creatinine Urine Random 215.9 mg/dL
[2022-07-09 10:39] LABS: Microalbumi Creatinin Ratio Ur 19.9 ug/mg CR (<30); Microalbumin Urine Random 4.3 mg/dL (0-1.6)
[2022-07-13 21:35] LABS: Magnesium, RBC 5.1 mg/dL (4.2-6.8)
== END ==
PROVIDERS: PCP Family Medicine; Referring Provider Family Medicine; Visit Provider Family Medicine
DX: E55.9 Vitamin D deficiency, unspecified (principal); I10 Essential (primary) hypertension; I97.89 Other postprocedural complications and disorders of the circulatory system, not elsewhere classified; I48.91 Unspecified atrial fibrillation
CPT/HCPCS: 36415; 80053; 80061; 82043; 82306; 82570; 83735; 85027

== ENCOUNTER → 2022-10-21 08:59 | Outpatient (CLI) | payer MEDICARE, OTHER, SELFPAY ==
[2021-12-03 15:40] VITALS: BMI 28.6
--- NOTE | 2022-10-21 09:00 | DI.MG.S_ITS ---
BILATERAL DIGITAL SCREENING MAMMOGRAM 3D/2D WITH CAD: 10/21/2022 CLINICAL: Routine screening. Family history of breast cancer. Comparison is made to exams dated: 10/20/2021 mammogram, 10/16/2020 mammogram, and 10/05/2019 mammogram - [facility]. Both breasts are almost entirely fatty (category a/<25% glandular tissue). Current study was also evaluated with a Computer Aided Detection (CAD) system. No significant masses, calcifications, or other findings are seen in either breast. There has been no significant interval change. IMPRESSION: NEGATIVE There is no mammographic evidence of malignancy. A 1 year screening mammogram is recommended. Based on the Tyrer Cuzick model (a risk assessment model) the patient's lifetime risk is 6.7% and her 10 year risk is 4.0%. According to the ACR, ACS, and NCCN guidelines, an annual breast MRI exam along with mammogram is recommended if the patient's lifetime risk is 20% or greater. This exam was interpreted at Station ID: [id number]. NOTE: For mammograms, a report in lay terms will be sent to the patient. Approximately 15% of breast malignancies will not be visualized mammographically. In the management of a palpable breast mass, a negative mammogram must not discourage biopsy of a clinically suspicious lesion. Electronically Signed By: Jared mantilla/isela:10/21/2022 17:12:18 letter sent: Normal Exam ACR BI-RADS Category 1: Negative 3341F
== END ==
PROVIDERS: PCP Family Medicine; Referring Provider Family Medicine; Visit Provider Family Medicine
DX: Z12.31 Encounter for screening mammogram for malignant neoplasm of breast (principal); Z80.3 Family history of malignant neoplasm of breast
CPT/HCPCS: 77063; 77067

== ENCOUNTER 2022-11-06 09:01 | Emergency (ER) | payer MEDICARE, OTHER, SELFPAY ==
[2021-12-03 15:40] VITALS: BMI 28.6
[2022-11-06 09:06] VITALS: BP 189/81; PULSE 70; RESP 14; TEMP 36.8; O2SAT 99; BMI 28.8
[2022-11-06 09:07] VITALS: PULSE 89; O2SAT 98
[2022-11-06 09:08] VITALS: BP 189/81; PULSE 77; O2SAT 99
--- NOTE | 2022-11-06 09:10 | DI.RAD.S_ITS ---
PROCEDURE: XR CHEST 1V INDICATIONS: chest pain TECHNIQUE: One view of the chest was acquired. COMPARISON: [facility], CR, XR CHEST 1V, 12/03/2021, 11:53. FINDINGS: Surgical changes and devices: None. Lungs and pleura: Lungs are clear. No pleural effusions or pneumothorax. Mediastinum: Mediastinal contours appear normal. Heart size is normal. Bones and chest wall: No suspicious bony lesions. Rightward scoliosis. Overlying soft tissues appear unremarkable. IMPRESSION: Portable chest within normal limits for age. Dictated by: Domonique Taylor M.D. on 11/06/2022 at 10:06 Approved by: Domonique Taylor M.D. on 11/06/2022 at 10:07
--- NOTE | 2022-11-06 09:11 | ED_ITS ---
HPI - General Adult General Chief complaint: Chest Pain Stated complaint: heartburn T-5 Time Seen by Provider: 11/06/22 09:11 History of Present Illness HPI narrative: 67-year-old female with history of acid reflux, hypertension presents by private vehicle from home for heartburn. Patient states that she has frequent heartburn but it is usually well controlled with daily Protonix. Earlier this month she had an endoscopy with GI that patient states was ?normal?. For the last 5 days she is had worsening reflux with belching and a burning sensation in her midepigastric region. He is not controlled with her Protonix and she is also tried Maalox, Gas-X, other [id number] medications without significant relief. She called her primary care physician who referred her to the walk-in clinic, however the walk-in clinic referred her to the ER for evaluation. Related Data Home Medications Medication Instructions Recorded Confirmed aspirin 81 mg tablet,delayed 81 mg PO DAILY 12/26/21 10/13/22 release Previous Rx's Medication Instructions Recorded olmesartan 40 mg tablet 40 mg PO DAILY #90 tabs 07/13/22 pantoprazole 20 mg tablet,delayed 20 mg PO DAILY #90 tabs 07/13/22 release famotidine 20 mg tablet (Pepcid) 20 mg PO BID #30 tabs 11/06/22 Allergies Allergy/AdvReac Type Severity Reaction Status Date / Time cefuroxime [From Ceftin] Allergy rash, Verified 11/06/22 09:11 irregular heart rhythm Review of Systems Review of Systems Narrative: CONSTITUTIONAL- Denies: fever, chills, fatigue HEENT- Denies: sore throat, nosebleed, vision changes RESPIRATORY- Denies: shortness of breath, cough, wheezing CARDIAC- Denies: chest pain, edema, orthopnea GI-reports: Heartburn, belching Denies: abdominal pain, nausea, vomiting, constipation, diarrhea - Denies: frequency, dysuria, hematuria, flank pain MSK- Denies: extremity pain, extremity swelling, joint pain, joint swelling SKIN- Denies: rash, itching, burn, swelling NEUROLOGICAL- Denies: headache, numbness, weakness, dizziness PSYCHIATRIC- Denies: anxiety, depression, suicidal ideation, homicidal ideation Patient History Medical History Perez's esophagus (~2016) Constipation by delayed colonic transit Gallbladder polyp GERD (gastroesophageal reflux disease) (1978) Obesity (BMI 30.0-34.9) Postmenopausal atrophic vaginitis Surgical History History of bladder surgery (~01/2011) History of knee replacement (~05/2016) History of knee surgery (~05/2010) Hx of foot surgery (09/2016) Family History Father Heart disease Hypertension Mother Cancer Hypertension Social History marital status: household members: spouse education level: high school travel history: recurrent seatbelt use: always water heater temp set < 120 deg: Yes working smoke detector in home: Yes fire extinguisher in home: Yes carbon monox detector in home: Yes firearms in home: Yes do you feel safe at home: Yes Smoking Status: Never smoker second hand exposure: No alcohol intake: current substance use type: does not use well-balanced diet: daily or most days daily servings fruits/ve-4 caffeine: Yes eating out: 1-3 times/week Type(s) of exercise: walking and additional frequency: 1-2 times per week duration: 45-60 minutes/day Smoking Status: Never smoker alcohol intake frequency: holidays/special occasions only Substance Use Type: does not use Exam Initial Vital Signs Initial Vital Signs: Vital Signs Temperature 98.2 F 11/06/22 09:06 Pulse Rate 70 11/06/22 09:06 Respiratory Rate 14 11/06/22 09:06 Blood Pressure 189/81 H 11/06/22 09:06 Pulse Oximetry 99 11/06/22 09:06 Oxygen Delivery Method Room Air 11/06/22 09:06 Const: Awake, alert, no acute distress, nontoxic appearing Eyes: PERRL, EOMI, conjunctiva normal ENT: Atraumatic, dentition normal, mucous membranes moist Cardiac: regular rate, regular rhythm RESP: unlabored, clear bilaterally, no wheezing GI: Atraumatic, soft, nontender, nondistended, no rebound, no guarding MSK: Atraumatic, full range of motion, pulses equal Skin: Warm, Dry, intact, no rashes Neuro: AO x3, CN II-XII grossly intact, moves all extremities Psych: affect normal, mood normal, not suicidal, not homicidal Course Course Course Narrative: Well-appearing patient with 5 days of heartburn-like symptoms. Longstanding history of reflux, when asked about dietary changes patient does state that she has been eating a lot of acidic foods such as pineapple, coffee, vinegar based sauces recently. EKG is normal sinus rhythm, patient denies history of heart problems. As a precaution we will obtain cardiac workup. Orders Ordered: Discontinued Medications Al Hydrox/Mg Hydrox/Simethicone (Mag Hydrox/Alum/Simeth 30 Ml Udc) 30 ml PO NOW ONE Stop: 11/06/22 09:17 Last Admin: 11/06/22 09:25 Dose: 30 ml Documented By: CTS Lidocaine HCl (Lidocaine Viscous 2% 15 Ml Solution) 15 ml PO NOW ONE Stop: 11/06/22 09:17 Last Admin: 11/06/22 09:25 Dose: 15 ml Documented By: CTS Reevaluation(s) Reevaluation #1: Laboratory work is unremarkable, troponin undetectable, chest x-ray negative for acute findings. Heart score is 2 based on age and risk factors (weight, HTN). Patient informed of all lab and imaging results at bedside, she was advised on dietary modifications that she may take to help improve her acid reflux. Counseled to increase protonix for 2 weeks and will add pepcid. Advised to f/u with GI Vital Signs Vital signs: Vital Signs - 8 hr 11/06/22 09:06 11/06/22 09:07 11/06/22 09:08 Temperature 98.2 F Pulse Rate 70 89 Respiratory Rate 14 Blood Pressure 189/81 H 189/81 H Pulse Oximetry 99 98 Oxygen Delivery Method Room Air 11/06/22 09:08 11/06/22 09:30 11/06/22 09:30 Temperature Pulse Rate 77 74 Respiratory Rate 20 Blood Pressure 187/90 H Pulse Oximetry 99 99 Oxygen Delivery Method Room Air Room Air Medical Decision Making Lab Data 11/06/22 09:20 11/06/22 09:20 Labs: Lab Results 11/06/22 11/06/22 11/06/22 Range/Units 09:20 09:20 09:20 WBC 6.0 (4.5-11.0) X10^3/uL RBC 4.41 (4.0-5.2) X10^6/uL Hgb 13.0 (12.0-16.0) g/dL Hct 38.4 (36-46) % MCV 86.9 (80-100) fL MCH 29.4 (26-34) PG MCHC 33.8 (30-36) % RDW 13.6 (11.6-14.8) % Plt Count 250 (150-400) X10^3/uL Neut % (Auto) 65.3 (50-75) % Lymph % (Auto) 24.1 L (25-40) % Ballard % (Auto) 8.5 (3-14) % Eos % (Auto) 1.6 L (2-4) % Baso % (Auto) 0.5 (0-2) % Neut # (Auto) 3900 (4831-7793) /uL Lymph # (Auto) 1400 (7063-8413) /uL Ballard # (Auto) 500 (0-900) /uL Eos # (Auto) 100 (0-450) /uL Baso # (Auto) 0 (0-100) /uL PT 11.8 (10.1-12.7) SECONDS INR 1.0 (0.9-1.3) APTT 31 (26-36) SECONDS Sodium 139 (137-145) mmol/L Potassium 3.9 (3.4-5.1) mmol/L Chloride 104 (98-107) mmol/L Carbon Dioxide 27 (22-32) mmol/L BUN 14 (7-17) mg/dL Creatinine 0.94 (0.52-1.04) mg/dL Estimated GFR > 60 (>60) mL/min BUN/Creatinine Ratio 14.9 (6-22) Glucose 98 (80-110) mg/dL Calcium 9.6 (8.4-10.2) mg/dL Magnesium 2.0 (1.6-2.3) mg/dL Total Bilirubin 0.6 (0.2-1.3) mg/dL AST 33 (14-36) IU/L ALT 27 (<35) IU/L Alkaline Phosphatase 81 (38-126) U/L Total Creatine Kinase 84 (30-135) U/L Troponin I < 0.012 (0.01-0.034) ng/mL Total Protein 7.7 (6.3-8.2) g/dL Albumin 4.3 (3.5-5.0) g/dL Globulin 3.4 (1.7-4.1) g/dL Albumin/Globulin Ratio 1.3 (1.0-2.8) Lipase 90 (23-300) U/L Discharge Plan Departure Patient Disposition: Home Clinical Impression: Heartburn Instructions: DI for Gastroesophageal Reflux Disease (GERD) Prescriptions: New famotidine [Pepcid] 20 mg tablet 20 mg PO BID Qty: 30 0RF No Action aspirin 81 mg tablet,delayed release (DR/EC) 81 mg PO DAILY olmesartan 40 mg tablet 40 mg PO DAILY Qty: 90 1RF pantoprazole 20 mg tablet,delayed release (DR/EC) 20 mg PO DAILY Qty: 90 1RF Referrals: Bekah Sanchez DO [Primary Care Provider] - Stand Alone Forms: Patient Portal/API
[2022-11-06] MEDS: LIDOCAINE VISCOUS 2% 15 ML SOLUTION PO (09:25)
[2022-11-06] MEDS: MAG HYDROX/ALUM/SIMETH 30 ML UDC PO (09:25)
[2022-11-06 09:30] VITALS: BP 187/90; PULSE 74; RESP 20; O2SAT 99
[2022-11-06 09:35] LABS: Add Manual Diff / Slide Review NO; Basophils Absolute Auto 0 /uL (0-100); Basophils Percent Auto 0.5 % (0-2); Eosinophils Absolute Auto 100 /uL (0-450); Eosinophils Percent Auto 1.6 % (2-4); Hematocrit 38.4 % (36-46); Lymphocytes Absolute Auto 1400 /uL (1100-4500); Lymphocytes Percent Auto 24.1 % (25-40); Mean Corpuscular HGB Conc 33.8 % (30-36); Mean Corpuscular Hemoglobin 29.4 PG (26-34); Mean Corpuscular Volume 86.9 fL (80-100); Monocytes Absolute Auto 500 /uL (0-900); Monocytes Percent Auto 8.5 % (3-14); Neutrophils Absolute Auto 3900 /uL (1500-7000); Neutrophils Percent Auto 65.3 % (50-75); Platelet Count 250 X10^3/uL (150-400); Red Blood Cell Count 4.41 X10^6/uL (4.0-5.2); Red Cell Distribution Width 13.6 % (11.6-14.8)
--- NOTE | 2022-11-06 09:37 | PC.NURSE ---
Patient denies having SOB or lightheaded. She does have lower epigastric pain that is accompanied by burping and a burning sensation, which she last felt last night. It is provoked by eating anything. Patient taken multiple home meds with no resolution. She currently denies pain/burning sensation. History of afib after a GI surgery years ago. She followed up with cardiology and they declared it was a one time event at that time due to abdominal surgery, no need to take blood thinners.
[2022-11-06 09:41] LABS: Prothrombin Time 11.8 SECONDS (10.1-12.7)
[2022-11-06 09:44] LABS: PTT Partial Thromboplastin Tim 31 SECONDS (26-36)
[2022-11-06 09:47] LABS: Alanine Aminotransferase 27 IU/L (<35); Albumin 4.3 g/dL (3.5-5.0); Albumin Globulin Ratio 1.3 (1.0-2.8); Alkaline Phosphatase 81 U/L (38-126); Aspartate Aminotransferase 33 IU/L (14-36); BUN Creatinine Ratio 14.9 (6-22); Bilirubin Total 0.6 mg/dL (0.2-1.3); Blood Urea Nitrogen 14 mg/dL (7-17); Calcium 9.6 mg/dL (8.4-10.2); Carbon Dioxide 27 mmol/L (22-32); Chloride 104 mmol/L (98-107); Creatine Kinase 84 U/L (30-135); Estimated Glomerular Filt Rate > 60 mL/min (>60); Globulin 3.4 g/dL (1.7-4.1); Glucose 98 mg/dL (80-110); HEMOLYSIS < 15 (0-50); Lipase 90 U/L (23-300); Potassium 3.9 mmol/L (3.4-5.1); Sodium 139 mmol/L (137-145); Total Protein 7.7 g/dL (6.3-8.2)
[2022-11-06 09:58] LABS: Troponin I < 0.012 ng/mL (0.01-0.034)
[2022-11-06 10:00] VITALS: PULSE 58; RESP 9; O2SAT 100
[2022-11-06 10:01] VITALS: BP 158/77; PULSE 62; RESP 9; O2SAT 100
== END 2022-11-06 10:24 | disposition home or self-care (01) ==
PROVIDERS: Emergency Provider Emergency Medicine; PCP Family Medicine
DX: R12 Heartburn (principal); R07.9 Chest pain, unspecified
CPT/HCPCS: 36415; 71045; 80053; 82550; 83690; 83735; 84484; 85025; 85610; 85730; 93005; 99284

== ENCOUNTER → 2023-02-16 07:36 | Outpatient (CLI) | payer MEDICARE, OTHER, SELFPAY ==
[2021-12-03 15:40] VITALS: BMI 28.6
[2023-02-16 08:32] LABS: BUN Creatinine Ratio 16.1 (6-22); Blood Urea Nitrogen 15 mg/dL (7-17); Calcium 9.7 mg/dL (8.4-10.2); Carbon Dioxide 27 mmol/L (22-32); Chloride 103 mmol/L (98-107); Estimated Glomerular Filt Rate > 60 mL/min (>60); Glucose 94 mg/dL (80-110); HEMOLYSIS < 15 (0-50); Potassium 4.7 mmol/L (3.4-5.1); Sodium 138 mmol/L (137-145)
[2023-02-16 18:29] LABS: Creatinine Urine Random 18.7 mg/dL
[2023-02-16 18:36] LABS: Microalbumin Urine Random < 0.6 mg/dL (0-1.6)
== END ==
PROVIDERS: PCP Family Medicine; Referring Provider Family Medicine; Visit Provider Family Medicine
DX: D64.9 Anemia, unspecified (principal); E78.5 Hyperlipidemia, unspecified; I10 Essential (primary) hypertension
CPT/HCPCS: 36415; 80048; 82043; 82570

== ENCOUNTER → 2023-08-04 08:03 | Outpatient (CLI) | payer MEDICARE, OTHER, SELFPAY ==
[2021-12-03 15:40] VITALS: BMI 28.6
--- NOTE | 2023-08-04 08:05 | DI.MRI.S_ITS ---
PROCEDURE: MR CERVICAL SPINE WO CON INDICATIONS: SPONDYLOSIS W/O MYELOPATHY TECHNIQUE: Noncontrast sagittal T1 spin echo and T2 fast spin echo, sagittal STIR, foraminal oblique sagittal T2 fast spin echo, and axial gradient echo or T2 fast spin echo through the cervical spine. COMPARISON: None. FINDINGS: Image quality: Excellent. Alignment and Curvature: Minimal retrolisthesis of C5 on C6. Bone Marrow: Marrow demonstrates normal overall signal. Spinal Cord: Visualized spinal cord has normal size and signal. No cerebellar tonsillar herniation. Paraspinous Soft Tissues: No paravertebral masses. Prevertebral soft tissues are normal in thickness. C2-C3: No central canal stenosis. Mild facet and uncovertebral arthropathy. No neural foraminal stenosis. C3-C4: Mild disc desiccation and height loss. Minimal posterior disc osteophyte complex. No central canal stenosis. Facet and uncovertebral arthropathy. Moderate right and mild left neural foraminal stenosis. C4-C5: Disc desiccation and mild posterior disc osteophyte complex. No significant central canal stenosis. Facet and uncovertebral arthropathy. Moderate bilateral neural foraminal stenosis. C5-C6: Disc desiccation and moderate disc height loss. Mild posterior disc osteophyte complex. Mild central canal stenosis. Facet and uncovertebral arthropathy. Severe right and moderate left neural foraminal stenosis. C6-C7: Disc desiccation and mild height loss. Mild posterior disc osteophyte complex. No central canal stenosis. Facet and uncovertebral arthropathy. Mild right and no left neural foraminal stenosis. C7-T1: Disc desiccation and mild height loss. No central canal or neural foraminal stenosis. IMPRESSION: 1. Multilevel degenerative changes of the cervical spine as described above. 2. There is mild central canal stenosis at C5-C6. 3. Severe right neural foraminal stenosis at C5-C6. Multilevel mild and moderate neural foraminal stenosis at other levels. Dictated by: Erick Brooks M.D. on 08/04/2023 at 10:52 Approved by: Erick Brooks M.D. on 08/04/2023 at 10:56
== END ==
LOC: MRI 08:04
PROVIDERS: PCP Family Medicine; Referring Provider Physical Medicine & Rehabilitation; Visit Provider Physical Medicine & Rehabilitation
DX: M47.812 Spondylosis without myelopathy or radiculopathy, cervical region (principal); M48.02 Spinal stenosis, cervical region
CPT/HCPCS: 72141

== ENCOUNTER 2023-08-06 07:33 | Emergency (ER) | payer MEDICARE, OTHER, SELFPAY ==
[2021-12-03 15:40] VITALS: BMI 28.6
[2023-08-06 07:52] VITALS: BP 172/92; PULSE 82; RESP 20; TEMP 37; O2SAT 100; BMI 20.2
--- NOTE | 2023-08-06 08:07 | ED.NECK ---
HPI - Neck Pain/Injury General Chief Complaint: Neck Pain/Injury Stated Complaint: pain behind L ear t-2months Time Seen by Provider: 08/06/23 07:53 Source: patient Mode of arrival: Ambulatory Limitations: no limitations History of Present Illness HPI Narrative: Patient is a 68-year-old female who is here for evaluation of approximately 2 months discomfort to the area behind her left ear. States the symptoms initially started after having an ear infection/sinus infection. Those symptoms have resolved however the pain behind her left ear has been persistent. She has also had neck discomfort. The pain in the back of her head started before the neck discomfort. She has seen a orthopedic spine surgeon. Recently had an MRI. Was started on steroids. Did not tolerate the steroids very well because of the side effects. Is having some tingling in her left arm but this is also not new. States the pain behind her left ear has gotten to the point where it is difficult for her to concentrate. There has been some discussions about using steroid injections and also physical therapy but this is yet to be performed. Related Data Previous Rx's Medication Instructions Recorded famotidine 20 mg tablet (Pepcid) 20 mg PO BID #30 tabs 11/06/22 olmesartan 40 mg tablet 40 mg PO DAILY #90 tabs 04/01/23 pantoprazole 20 mg tablet,delayed 20 mg PO DAILY #90 tabs 06/30/23 release doxycycline hyclate 100 mg capsule 100 mg PO BID #20 caps 07/01/23 cyclobenzaprine 10 mg tablet 10 mg PO TID PRN muscle spasm #14 08/06/23 tabs gabapentin 100 mg capsule 100 mg PO TID #90 caps 08/06/23 meloxicam 15 mg tablet 15 mg PO DAILY #30 tabs 08/06/23 Allergies Allergy/AdvReac Type Severity Reaction Status Date / Time cefuroxime [From Ceftin] Allergy rash, Verified 07/01/23 10:06 irregular heart rhythm amlodipine AdvReac Intermediate Verified 07/01/23 10:06 Review of Systems Review of Systems Narrative: See HPI Patient History Medical History Gallbladder polyp Postmenopausal atrophic vaginitis Constipation by delayed colonic transit Obesity (BMI 30.0-34.9) GERD (gastroesophageal reflux disease) (1978) Perez's esophagus (~2016) Surgical History History of bladder surgery (~01/2011) History of knee replacement (~05/2016) History of knee surgery (~05/2010) Hx of foot surgery (09/2016) Family History Father Heart disease Hypertension Mother Cancer Hypertension Social History marital status: household members: spouse education level: high school travel history: recurrent seatbelt use: always water heater temp set < 120 deg: Yes working smoke detector in home: Yes fire extinguisher in home: Yes carbon monox detector in home: Yes firearms in home: Yes do you feel safe at home: Yes Smoking Status: Never smoker second hand exposure: No alcohol intake: current substance use type: does not use well-balanced diet: daily or most days daily servings fruits/ve-4 caffeine: Yes eating out: 1-3 times/week Type(s) of exercise: walking and additional frequency: 1-2 times per week duration: 45-60 minutes/day Smoking Status: Never smoker alcohol intake frequency: holidays/special occasions only Substance Use Type: does not use Exam Initial Vital Signs Initial Vital Signs: Vital Signs Temperature 98.6 F 08/06/23 07:52 Pulse Rate 82 08/06/23 07:52 Respiratory Rate 20 08/06/23 07:52 Blood Pressure 172/92 H 08/06/23 07:52 Pulse Oximetry 100 08/06/23 07:52 Oxygen Delivery Method Room Air 08/06/23 07:52 Const General: cooperative, comfortable and No ill appearing HENMA Head: normal to inspection, normocephalic, No contusion, No hematoma and No laceration Ears: TM's normal bilaterally, EAC's normal and mastoid abnormal (Tenderness to palpation over the left mastoid) Nose: external nose normal Face and sinus: normal facial exam Back/Spine/Pelvis Cervical Spine: cervical muscular tenderness and No cervical spinal tenderness Skin General: no rashes or lesions noted Neuro General: patient alert, patient awake, patient oriented x3 and moves all extremities Extrem General: capillary refill normal Course Orders Ordered: ED Orders 08/06/23 08:07 CT mastoid temporal Stat Vital Signs Vital signs: Vital Signs - 8 hr 08/06/23 07:52 Temperature 98.6 F Pulse Rate 82 Respiratory Rate 20 Blood Pressure 172/92 H Pulse Oximetry 100 Oxygen Delivery Method Room Air [facility] - Neck Pain/Injury Imaging Data CT scan - head: Radiologist's Impression: PROCEDURE: CT MASTOID TEMPORAL INDICATIONS: L mastoid pain eval for mastoiditis COMPARISON: None. TECHNIQUE: Noncontrast 0.6 mm thick axial sections acquired through each temporal bone separately. Coronal images are reformatted. FINDINGS: Image quality: Excellent. RIGHT: External auditory canal: Canal has a normal appearance. Middle ear: The middle ear structures, including the ossicles and tympanic membrane, appear normal. No abnormal fluid or soft tissue density. Inner ear: Inner ear is normally formed and appears unremarkable. Facial nerve appears normal throughout is course. Mastoids: Mastoid air cells are clear. LEFT: External auditory canal: Canal has a normal appearance. Middle ear: The middle ear structures, including the ossicles and tympanic membrane, appear normal. No abnormal fluid or soft tissue density. Inner ear: Inner ear is normally formed and appears unremarkable. Facial nerve appears normal throughout its course. Mastoids: Mastoid air cells are clear. MISCELLANEOUS: Visualized surrounding bones appear unremarkable. Visualized intracranial structures, including the cerebellopontine angle cisterns, appear normal. IMPRESSION: No evidence of mastoiditis. [facility] Narrative Medical decision making narrative: Patient does have discomfort along the mastoid process and occipital region of the left side of the posterior neck. She has no signs of acute otitis media. No skin changes over the area. CT scan today does not show any signs of mastoiditis. Low suspicion for CVA. She is known degenerative changes in her neck. I suspect that her changes today are muscular related. No indication for antibiotics. She did not tolerate prednisone. Will try muscle relaxers, gabapentin and meloxicam. Will have her follow-up with her spine surgeon. She was given return precautions. She expressed understanding and agreement. Discharge Plan Departure Patient Disposition: Home Clinical Impression: Neck pain Instructions: DI for Neck Pain Activity Restrictions/Additional Instructions: I do recommend that you continue with conservative measures such as heat/ice/massage. Keep all of your scheduled medical appointments. Take the new medications as directed. Return to the emergency department for new symptoms. Prescriptions: New cyclobenzaprine 10 mg tablet 10 mg PO TID PRN (Reason: muscle spasm) Qty: 14 0RF meloxicam 15 mg tablet 15 mg PO DAILY Qty: 30 0RF gabapentin 100 mg capsule 100 mg PO TID Qty: 90 0RF No Action doxycycline hyclate 100 mg capsule 100 mg PO BID Qty: 20 0RF pantoprazole 20 mg tablet,delayed release (DR/EC) 20 mg PO DAILY Qty: 90 1RF olmesartan 40 mg tablet 40 mg PO DAILY Qty: 90 1RF famotidine [Pepcid] 20 mg tablet 20 mg PO BID Qty: 30 0RF Referrals: Bekah Sanchez DO [Primary Care Provider] - Stand Alone Forms: Patient Portal/API
--- NOTE | 2023-08-06 10:13 | PC.NURSE ---
pt came to ED today because has been having worsening neck pain and pain in the back of her head since may when she had a virus. Pt states that the pain radiates from behind her hears, down her neck and into her shoulders. Has hx of bulging discs C4-5 & C6-7 and bone spurs in neck. Was prescribed prednisone but stopped taking it because of unpleasant side effects. Had recent MRI done at but does not know results and cannot get in to see her PT until next week. Has been using Icy Hot, Ibuprofen and Tylenol for pain. Pt states that she just can't take it anymore and her pain is 8/10. Denies any loss or sensation in extremities. Denies tingling and numbness of extremities.
[2023-08-06 10:15] VITALS: BP 172/100; PULSE 65; RESP 12; O2SAT 100
== END 2023-08-06 10:17 | disposition home or self-care (01) ==
PROVIDERS: Emergency Provider Emergency Medicine; PCP Family Medicine
DX: M54.2 Cervicalgia (principal)
CPT/HCPCS: 70480; 99281; 99283

== ENCOUNTER → 2023-09-17 09:24 | Outpatient (CLI) | payer MEDICARE, OTHER, SELFPAY ==
[2021-12-03 15:40] VITALS: BMI 28.6
== END ==
PROVIDERS: PCP Family Medicine; Visit Provider Physician Assistant Surgical
DX: R39.9 Unspecified symptoms and signs involving the genitourinary system (principal)
CPT/HCPCS: 87086

== ENCOUNTER → 2023-09-20 14:50 | Outpatient (CLI) | payer MEDICARE, OTHER, SELFPAY ==
[2021-12-03 15:40] VITALS: BMI 28.6
== END ==
PROVIDERS: PCP Family Medicine; Visit Provider Nurse Practitioner Family
DX: J02.9 Acute pharyngitis, unspecified (principal)
CPT/HCPCS: 87070

== ENCOUNTER → 2023-11-27 09:42 | Outpatient (CLI) | payer MEDICARE, OTHER, SELFPAY ==
[2021-12-03 15:40] VITALS: BMI 28.6
--- NOTE | 2023-11-27 | DI.MG.S_ITS ---
BILATERAL DIGITAL SCREENING MAMMOGRAM 3D/2D WITH CAD: 11/27/2023 CLINICAL: Routine screening. Family history of breast cancer. Comparison is made to exams dated: 10/21/2022 mammogram, 10/16/2020 mammogram, 10/20/2021 mammogram, 10/05/2019 mammogram, and 10/03/2018 mammogram - [facility]. There are scattered areas of fibroglandular density (category b / 25%-50% glandular tissue). Current study was also evaluated with a Computer Aided Detection (CAD) system. No significant masses, calcifications, or other findings are seen in either breast. There has been no significant interval change. IMPRESSION: NEGATIVE There is no mammographic evidence of malignancy. A 1 year screening mammogram is recommended. Based on the Tyrer Cuzick model (a risk assessment model) the patient's lifetime risk is 9.5% and her 10 year risk is 6.1%. According to the ACR, ACS, and NCCN guidelines, an annual breast MRI exam along with mammogram is recommended if the patient's lifetime risk is 20% or greater. This exam was interpreted at Station ID: [id number]. NOTE: For mammograms, a report in lay terms will be sent to the patient. Approximately 15% of breast malignancies will not be visualized mammographically. In the management of a palpable breast mass, a negative mammogram must not discourage biopsy of a clinically suspicious lesion. Electronically Signed By: Bee Leal M.D., Ph.D. ras/isela:12/01/2023 01:30:41 letter sent: Normal Exam ACR BI-RADS Category 1: Negative
== END ==
PROVIDERS: PCP Family Medicine; Referring Provider Family Medicine; Visit Provider Family Medicine
DX: Z12.31 Encounter for screening mammogram for malignant neoplasm of breast (principal); Z80.3 Family history of malignant neoplasm of breast
CPT/HCPCS: 77063; 77067

== ENCOUNTER → 2024-01-03 08:20 | Outpatient (CLI) | payer MEDICARE, OTHER, SELFPAY ==
[2021-12-03 15:40] VITALS: BMI 28.6
[2024-01-03 09:10] LABS: Add Manual Diff / Slide Review NO; Basophils Absolute Auto 0 /uL (0-100); Basophils Percent Auto 0.2 % (0-2); Eosinophils Absolute Auto 200 /uL (0-450); Eosinophils Percent Auto 2.9 % (2-4); Hematocrit 36.6 % (36-46); Hemoglobin 12.2 g/dL (12.0-16.0); Lymphocytes Absolute Auto 1300 /uL (1100-4500); Lymphocytes Percent Auto 18.8 % (25-40); Mean Corpuscular HGB Conc 33.3 % (30-36); Mean Corpuscular Hemoglobin 29.5 PG (26-34); Mean Corpuscular Volume 88.6 fL (80-100); Monocytes Absolute Auto 600 /uL (0-900); Monocytes Percent Auto 8.2 % (3-14); Neutrophils Absolute Auto 5000 /uL (1500-7000); Neutrophils Percent Auto 69.9 % (50-75); Platelet Count 254 X10^3/uL (150-400); Red Blood Cell Count 4.13 X10^6/uL (4.0-5.2); Red Cell Distribution Width 13.8 % (11.6-14.8); White Blood Cell Count 7.2 X10^3/uL (4.5-11.0)
[2024-01-03 09:32] LABS: HEMOLYSIS 17 (0-50); Iron 59 ug/dL (37-170)
[2024-01-03 09:43] LABS: Percent Iron Saturation 23 % (15-50); Total Iron Binding Capacity 252 ug/dL (265-497); Transferrin 228 mg/dL (206-381)
[2024-01-03 10:21] LABS: Vitamin B12 Reflex MMA if <400 494 pg/mL (239-931)
== END ==
PROVIDERS: PCP Family Medicine; Referring Provider Family Medicine; Visit Provider Family Medicine
DX: D64.9 Anemia, unspecified (principal); R68.2 Dry mouth, unspecified; K22.70 Barrett's esophagus without dysplasia; I10 Essential (primary) hypertension
CPT/HCPCS: 36415; 82607; 83540; 83550; 85025

== ENCOUNTER → 2024-03-04 07:50 | Outpatient (CLI) | payer MEDICARE, OTHER, SELFPAY ==
[2021-12-03 15:40] VITALS: BMI 28.6
--- NOTE | 2024-03-04 07:55 | DI.MRI.S_ITS ---
PROCEDURE: MR HEAD/BRAIN WO CON INDICATIONS: FACIAL NUMBNESS,OCCIPITAL NEURALGIA LT TECHNIQUE: Non-contrast axial T1 spin echo, axial T2 fast spin echo, sagittal and axial FLAIR, coronal T2 fast spin echo, axial gradient echo, axial diffusion and ADC through the brain. COMPARISON: [facility], CT, CT MASTOID TEMPORAL, 08/06/2023, 8:26. FINDINGS: Image quality: Excellent. CSF spaces: Ventricles appear symmetric in size and shape. Basal cisterns are patent. No extra-axial fluid collections. Brain: No intracranial bleeds or mass effects. There is cerebral volume loss for age. There are periventricular and deep white matter chronic small vessel ischemic changes. Brainstem appears normal. Diffusion-weighted images show no acute infarct. No chronic ischemic insults. Normal intravascular flow voids are present. In this patient with this given history, scrutiny is given to the trigeminal nerves. The trigeminal nerves demonstrate a normal appearance, without masses along their courses, including within the Meckel's caves. Skull and face: Calvarial bone marrow is normal in signal. Orbits are normal. Note is made of bilateral lens replacements. Sinuses: Sinuses and mastoids are clear. IMPRESSION: No imaging explanation is found for this patient's presenting symptoms. To the limits of this noncontrast study, no findings of intracranial masses or mass effect can be seen. Dictated by: Dex Washington M.D. on 03/06/2024 at 13:07 Approved by: Dex Washington M.D. on 03/06/2024 at 13:09
== END ==
PROVIDERS: Referring Provider Physical Medicine & Rehabilitation; Visit Provider Physical Medicine & Rehabilitation
DX: R20.0 Anesthesia of skin (principal); M54.81 Occipital neuralgia
CPT/HCPCS: 70551

== ENCOUNTER 2025-01-31 09:09 | Emergency (ER) | payer MEDICARE, OTHER, SELFPAY ==
[2021-12-03 15:40] VITALS: BMI 28.6
[2025-01-31] VITALS (11 sets, daily range): BP systolic 149–186; BP diastolic 67–83; PULSE 64–75; RESP 8–18; TEMP 36.7; O2SAT 97–100; BMI 25.8
--- NOTE | 2025-01-31 09:19 | DI.RAD.S_ITS ---
PROCEDURE: XR CHEST 1V INDICATIONS: Chest pain/tachycardia TECHNIQUE: One view of the chest was acquired. COMPARISON: [facility], , XR CHEST 1V, 11/06/2022, 9:18. [facility], CR, XR CHEST 1V, 12/03/2021, 11:53. FINDINGS: Surgical changes and devices: None. Lungs and pleura: Lungs are clear. No pleural effusions or pneumothorax. Mediastinum: Mediastinal contours appear normal. Heart size is normal. Bones and chest wall: Mild scoliotic curvature of the spine. No suspicious bony lesions. Overlying soft tissues appear unremarkable. IMPRESSION: No acute cardiopulmonary abnormality is seen. Approved by: Wily Crowell M.D. on 01/31/2025 at 10:28
--- NOTE | 2025-01-31 09:20 | ED_ITS ---
HPI - General Adult General Chief complaint: Chest Pain Stated complaint: Chest Pain Time Seen by Provider: 01/31/25 09:19 Source: patient, EMS, RN notes reviewed and old records reviewed Mode of arrival: EMS Limitations: no limitations History of Present Illness HPI narrative: 69-year-old female history of hypertension, GERD patient states she had an episode of atrial fibrillation in the past converted to sinus rhythm with oral metoprolol during her hospitalization and it up following with cardiology does not take any anticoagulants. Patient states today she developed episode where her heart felt like it was racing she had chest tightness and shortness of breath she is very lightheaded. Did not pass out but felt like she was very close to it. She denies any fevers or chills, no cold, cough or congestion symptoms. She felt a little bit sweaty when it happened. She denies any nausea or vomiting. States normal bowel movements and urination. No new swelling of the extremities. She notes she had a similar episode about 3 years ago and it following with the Cardiology but does not take any medications for it. She states she did have a 30 day monitor as well at that time. States home medications oral losartan 40 mg and pantoprazole 40 mg. Patient states no recent surgeries, no prior cardiac interventions. Has not had a stress test in the past. No tobacco, no alcohol, no recreational drugs. No long distance travel. Related Data Previous Rx's ?Medication ?Instructions ?Recorded olmesartan 40 mg tablet 40 mg PO DAILY #90 tabs 09/10 Held on 07/12/24. Instructions: ESTABLISHED AT [facility] pantoprazole 40 mg tablet,delayed 40 mg PO DAILY #90 t abs 10/08/23 release Held on 07/12/24. Instructions: ESTABLISHED AT [facility] Allergies Allergy/AdvReac Type Severity Reaction Status Date / Time nitrofurantoin (From Allergy Intermediate Rash Verified 01/31/25 09:32 Macrobid) cefuroxime (From Ceftin) Allergy rash, Verified 01/31/25 09:32 irregular heart rhythm prednisone Allergy face numb Verified 01/31/25 09:32 amlodipine AdvReac Intermediate Verified 01/31/25 09:32 Patient History Medical History (Updated 01/31/25 @ 12:45 by Taisha Linares DO) History of atrial fibrillation (~2021) Gallbladder polyp Postmenopausal atrophic vaginitis Constipation by delayed colonic transit Obesity (BMI 30.0-34.9) GERD (gastroesophageal reflux disease) (1978) Perez's esophagus (~2016) Surgical History Hx of foot surgery (09/2016) History of bladder surgery (~01/2011) History of knee surgery (~05/2010) History of knee replacement (~05/2016) Family History Father Heart disease Hypertension Mother Cancer Hypertension Social History marital status: household members: spouse education level: high school travel history: recurrent seatbelt use: always water heater temp set < 120 deg: Yes working smoke detector in home: Yes fire extinguisher in home: Yes carbon monox detector in home: Yes firearms in home: Yes do you feel safe at home: Yes Smoking Status: Never smoker second hand exposure: No alcohol intake: current substance use type: does not use well-balanced diet: daily or most days daily servings fruits/ve-4 caffeine: Yes eating out: 1-3 times/week Type(s) of exercise: walking and additional frequency: 1-2 times per week duration: 45-60 minutes/day alcohol intake frequency: holidays/special occasions only Exam Narrative Exam Narrative: GENERAL: Alert and oriented x three, well-appearing female in mild distress. HEENT: Head normocephalic, atraumatic, EOMI, pupils reactive, face symmetric, moist mucous membranes NECK: Supple, full range of motion CARDIOVASCULAR: Regular rate and rhythm without murmurs, rubs or gallops. No JVD. No edema bilateral lower extremities. RESPIRATORY: Breath sounds equal bilaterally, no wheezes rales or rhonchi., no tachypnea accessory muscle use ABDOMEN: Soft, nontender. Normoactive bowel sounds all 4 quadrants. No guarding or rebound, rigidity, no mass : No CVA tenderness EXTREMITIES: Normal range of motion, 2+ pulses all 4 extremities. Neurovascularly intact NEUROLOGICAL: Cranial nerves II through XII grossly intact. Moving all extremities SKIN: Warm, dry, no petechiae, no rashes or lesions. Initial Vital Signs Initial Vital Signs: Vital Signs Temperature 98.1 F 01/31/25 09:32 Pulse Rate 75 01/31/25 09:32 Respiratory Rate 18 01/31/25 09:32 Blood Pressure 186/83 H 01/31/25 09:32 Pulse Oximetry 98 01/31/25 09:32 Oxygen Delivery Method Room Air 01/31/25 09:32 Course Orders Ordered: ED Orders 01/31/25 09:10 Complete Blood Count AUTO DIFF Stat Comprehensive Metabolic Panel Stat D Dimer Stat Lipase Stat Magnesium Stat NT-proBNP (BNP-Adult 18+) Stat Troponin I Stat 01/31/25 09:19 XR chest 1V Stat EKG-12 Lead Stat 01/31/25 10:30 CT angio chest PE protocol Stat 01/31/25 11:10 EKG-12 Lead Stat 01/31/25 11:31 Trop I [Troponin I] Stat Discontinued Medications Sodium Chloride (Normal Saline 0.9%) 1,000 mls @ 999 mls/hr IV BOLUS ONE Stop: 01/31/25 10:19 Last Infusion: 01/31/25 12:06 Dose: Infused Documented By: Admin: 01/31/25 09:57 Dose: 999 mls/hr Documented By: ALESHA Vital Signs Vital signs: Vital Signs - 8 hr 01/31/25 10:00 01/31/25 10:00 01/31/25 10:30 Pulse Rate 68 64 Respiratory Rate 9 L 8 L Blood Pressure 153/72 H Pulse Oximetry 99 99 01/31/25 10:31 01/31/25 10:31 01/31/25 11:28 Pulse Rate 69 69 Respiratory Rate 9 L Blood Pressure 159/68 H Pulse Oximetry 99 01/31/25 11:29 01/31/25 11:29 01/31/25 11:30 Pulse Rate 75 75 Respiratory Rate 13 17 Blood Pressure 176/79 H Pulse Oximetry 98 99 01/31/25 12:00 01/31/25 12:01 01/31/25 12:01 Pulse Rate 69 71 Respiratory Rate 15 18 Blood Pressure 169/75 H Pulse Oximetry 100 99 01/31/25 12:30 01/31/25 12:30 Pulse Rate 69 Respiratory Rate Blood Pressure 149/67 H Pulse Oximetry 97 Medical Decision Making Lab Data 01/31/25 09:10 01/31/25 09:10 Labs: Lab Results 01/31/25 01/31/25 Range/Units 09:10 11:31 WBC 6.1 (4.5-11.0) X10^3/uL RBC 4.67 (4.0-5.2) X10^6/uL Hgb 13.8 (12.0-16.0) g/dL Hct 41.6 (36-46) % MCV 89.2 (80-100) fL MCH 29.6 (26-34) PG MCHC 33.2 (30-36) % RDW 13.5 (11.6-14.8) % Plt Count 258 (150-400) X10^3/uL Neut % (Auto) 64.4 (50-75) % Lymph % (Auto) 26.5 (25-40) % Allen % (Auto) 6.7 (3-14) % Eos % (Auto) 1.5 L (2-4) % Baso % (Auto) 0.9 (0-2) % Neut # (Auto) 3900 (3648-5353) /uL Lymph # (Auto) 1600 (1265-1995) /uL Allen # (Auto) 400 (0-900) /uL Eos # (Auto) 100 (0-450) /uL Baso # (Auto) 100 (0-100) /uL D-Dimer 710 H (<500) ng/ml Sodium 141 (137-145) mmol/L Potassium 4.2 (3.4-5.1) mmol/L Chloride 105 (98-107) mmol/L Carbon Dioxide 20 L (22-32) mmol/L BUN 14 (7-17) mg/dL Creatinine 1.03 (0.52-1.04) mg/dL Estimated GFR 58 L (>60) mL/min BUN/Creatinine Ratio 13.6 (6-22) Glucose 129 H (70-99) mg/dL Calcium 10.2 (8.4-10.2) mg/dL Magnesium 2.0 (1.6-2.3) mg/dL Total Bilirubin 0.6 (0.2-1.3) mg/dL AST 44 H (14-36) IU/L ALT 33 (<35) IU/L Alkaline Phosphatase 82 (38-126) U/L Troponin I < 0.012 < 0.012 (0.01-0.034) ng/mL NT-Pro-B Natriuret Pep 223 H (<125) pg/mL Total Protein 9.1 H (6.3-8.2) g/dL Albumin 5.3 H (3.5-5.0) g/dL Globulin 3.8 (1.7-4.1) g/dL Albumin/Globulin Ratio 1.4 (1.0-2.8) Lipase 113 (23-300) U/L Urine Dip Bedside Urine Glucose Negative Bedside Urine Bilirubin - Negative Bedside Urine Ketone - Negative Urine Specific [place] 1.005 Bedside Urine Occult Blood - Negative Bedside Urine pH 7.0 Bedside Urine Protein - Negative Bedside Urine Urobilinogen - Negative Bedside Urine Nitrite - Negative Bedside Urine Leukocytes - Negative Esterase Point of care testing: Urine Dip Bedside Urine Glucose Negative Bedside Urine Bilirubin - Negative Bedside Urine Ketone - Negative Urine Specific [place] 1.005 Bedside Urine Occult Blood - Negative Bedside Urine pH 7.0 Bedside Urine Protein - Negative Bedside Urine Urobilinogen - Negative Bedside Urine Nitrite - Negative Bedside Urine Leukocytes - Negative Esterase MDM Narrative Medical decision making narrative: EKG shows sinus rhythm premature atrial complexes, rate of 76 [place] 158 QRS of 94 QTC of 436, no acute ST-elevation or depression appreciated. Patient has prior from 11/06/2022. No significant ST changes appreciated. EKG and strips from EMS notes several weeks of the tachycardia it appears regular but no persistent arrhythmias appears very regular. Repeat EKG 2. Sinus rhythm rate of 72 [place] 166 QRS of 96 QTC of 442, no acute ST- elevation depression noted. Labs, white count of 6 hemoglobin of 13 platelets of 258, D-dimer is 710 when age adjusted to still elevated, chemistries are appropriate CO2 is 20 creatinine is 1.03 and glucose is 129 AST is 44, troponins less than 0.012 with a BNP of 223 and a lipase of 113. Potassium is 4.2 Mag is 2. Repeat troponins less than 0.012 Chest x-ray shows no acute cardiopulmonary abnormality. Chest CTA shows no pulmonary embolism, no acute pulmonary process note made of left atrial enlargement. Anterior wedging midthoracic vertebral bodies results in mild increased thoracic kyphosis. Patient received 1 L normal saline Cardiology consult from December [address] Duran patient was seen for an episode of atrial fibrillation with rapid ventricular response. Echo in November 2021 showed an EF of 55-60% with no focal wall motion abnormality. Mild at atrial enlargement. They note that if 30 day monitor is negative continue with the 81 mg aspirin at that time the suspected physiologic stress from recent cholecystectomy was responsible for her atrial fibrillation. Patient notes her 30 day monitor was stopped. She does not take any form of anticoagulants currently/ Discussed with the patient did not have any arrhythmias here in the department chads Vasc score is low we will have her follow up for repeat evaluation possible repeat ZIO patch discussed to take aspirin daily which has been recommendation from Cardiology in the past. Discussed return precautions. Discharge Plan Departure Patient Disposition: Home Clinical Impression: Palpitations Instructions: DI for Arrhythmias Activity Restrictions/Additional Instructions: You have not had any additional arrhythmias here in the department but it is possible that you have had an arrhythmia or possibly an episode of atrial fibrillation at home. I would recommend that you follow up with Cardiology or primary care. Please call Wednesday for an appointment. They may wish to repeat ZIO patch or monitor. I would recommend take an aspirin 81 mg daily for the time being until you see cardiology. If you have repeat episodes, recurrent chest pain, shortness of breath, any lightheadedness or passing out, persistently fast or irregular heart rate, new swelling of your extremities or other new concerning changes return to the emergency department. Prescriptions: No Action pantoprazole 40 mg tablet,delayed release (DR/EC) 40 mg PO DAILY Qty: 90 3RF olmesartan 40 mg tablet 40 mg PO DAILY Qty: 90 3RF Referrals: Miscellaneous,DoctorMD [Primary Care Provider, Medical] Samir Duran MD [Physician, Cardiology] Stand Alone Forms: Patient Portal/API
--- OUTSIDE RECORDS SUMMARY | 2025-01-31 09:21 | XMS_ITS | Clinical Summary ---
Author Organization [facility] Address [address] [place] [address] Care Team Providers Care Bezel Cutter Name Role Phone Kade Anaya MD Unavailable Allergies Active Allergy Reactions Criticality Noted Date Comments Cefuroxime Rash High 06/08/2017 Nitrofurantoin Rash Low 09/28/2023 Rash with fever Penicillin Other (See Comments) 03/02/2024 dizziness Prednisone Other (See Comments) 09/28/2023 Tingling in limbs and anxiety Medications ascorbic acid, vitamin C, 500 mg Cap Take 500 mg by mouth Active aspirin 81 MG EC tablet Take 81 mg by mouth Active cetirizine (ZYRTEC) 10 MG tablet Take 10 mg by mouth daily as needed Active cyanocobalamin (VIT B-12) 500 MCG tablet Take 500 mcg by mouth Active cyclobenzaprine (FLEXERIL) 10 MG tablet take 1-2 tablets BY MOUTH daily before bedtime 11/09/2023 Active Active Problems No known active problems Social History Tobacco Use Types Packs/Day Years Used Date Smoking Tobacco: Never Smokeless Tobacco: Never Alcohol Use Standard Drinks/Week Comments Never 0 (1 standard drink = 0.6 oz pur e alcohol) PHQ-2 Answer Date Recorded PHQ-2 Total Score 0 03/02/2024 Comments No Sex and Gender Information Value Date Recorded Sex Assigned at Female 02/18/2024 8:24 AM PST Legal Sex Female 8:29 AM PDT Gender Identity Not on file Sexual Orientation Not on file Last Filed Vital Signs Vital Sign Reading Time Taken Comments Blood Pressure 165/75 03/02/2024 1:46 PM PST Pulse 73 03/02/2024 1:35 PM PST Temperature - - Respiratory Rate 16 03/02/2024 1:35 PM PST Oxygen Saturation 98% 03/02/2024 1:35 PM PST Inhaled Oxygen Concentration - - Weight 72.6 kg (160 lb) 03/02/2024 1:35 PM PST Height 172.7 cm (5' 8) 03/02/2024 1:35 PM PST Body Mass Index 24.33 03/02/2024 1:35 PM PST Plan of Treatment Scheduled Referrals Name Type Priority Associated Diagnoses Order Schedule Ambulatory referral to Urology Outpatient Referral Routine Suprapubic discomfort Ordered: 09/24/2021 Health Maintenance Due Date Last Done Comments Annual Wellness (Medicare) p er Rolling Year 1955 Colon Cancer Screening-5 Yea r Sigmoidoscopy 1955 Colon Cancer Screening-CT Colonography 1955 Colon Cancer Screening-Fecal Occult Blood Test (iFOBT/FIT) 1955 Colon Cancer Screening-Guaia c Fecal Occult Blood Test (gFOBT) 1955 Colonoscopy 1955 Colorectal Cancer Screening 1955 Hepatitis C Screening 1955 Stool DNA Test (Cologuard) 1955 Audit-C Screening 07/15/1971 Social Drivers of Health Scr eening (Management Rep- MP Primary C Only) 07/15/1971 Mammogram 1993 Zoster Vaccine (1 of 2) 07/15/2003 Advance Care Planning 2018 DXA SCAN 2018 Falls Screening 2018 Neck Disability Index 08/30/2024 03/02/2024 Covid-19 Immunization (3 - 2 025-26 season) 2024 01/05/2021, 03/26/2020 Influenza Vaccine (#1) 2024 4, 11/24/2022, 10/29/2021, Additional history exists Depression Screening (PHQ-2) 03/02/2025 03/02/2024 DTaP/Tdap/Td (2 - Td or Tdap) 06/01/2028 06/01/2018 Pneumococcal Vaccine: 50+ Years Completed 0, 08/09/2018 Insurance MEDICARE A&B [facility] MEDICARE SUPPLEMENT Care Teams Bezel Cutter Relationship Specialty Start Date End Date Kade Anaya MD [address] [place] [address] [place] [id number] Consulting Physician Physical Medicine and Rehabilitation 02/18/24
--- NOTE | 2025-01-31 09:27 | EKG_ITS ---
[address] [address] Test Date: 2025-01-31 Pat Name: Trini Diaz Department: Room: Gender: Female Sales And Service Associate: SHANNAN : 1955 Requested By: Order Number: [id number] Reading MD: Phani Savage MD Measurements Intervals [place] Rate: 76 P: 57 WV: 158 QRS: -16 QRSD: 94 T: 27 QT: 388 QTc: 436 Interpretive Statements Sinus rhythm with premature atrial complexes with aberrant conduction Electronically Signed On 02-02-2025 8:10:59 PST by Phani Savage MD
[2025-01-31 09:37] LABS: Add Manual Diff / Slide Review NO; Hematocrit 41.6 % (36-46); Hemoglobin 13.8 g/dL (12.0-16.0); Lymphocytes Absolute Auto 1600 /uL (1100-4500); Mean Corpuscular HGB Conc 33.2 % (30-36); Mean Corpuscular Hemoglobin 29.6 PG (26-34); Mean Corpuscular Volume 89.2 fL (80-100); Platelet Count 258 X10^3/uL (150-400)
[2025-01-31] MEDS: SODIUM CHLORIDE 0.9% 1,000 ML 999 ML IV (09:57)
[2025-01-31 10:01] LABS: Alanine Aminotransferase 33 IU/L (<35); Albumin 5.3 g/dL (3.5-5.0); Albumin Globulin Ratio 1.4 (1.0-2.8); Alkaline Phosphatase 82 U/L (38-126); Blood Urea Nitrogen 14 mg/dL (7-17); Calcium 10.2 mg/dL (8.4-10.2); Carbon Dioxide 20 mmol/L (22-32); Chloride 105 mmol/L (98-107); Estimated Glomerular Filt Rate 58 mL/min (>60); Globulin 3.8 g/dL (1.7-4.1); Glucose 129 mg/dL (70-99); HEMOLYSIS < 15 (0-50); Lipase 113 U/L (23-300); Magnesium 2.0 mg/dL (1.6-2.3); Potassium 4.2 mmol/L (3.4-5.1); Sodium 141 mmol/L (137-145); Total Protein 9.1 g/dL (6.3-8.2)
[2025-01-31 10:14] LABS: NT-proBNP (BNP-Adult 18+) 223 pg/mL (<125); Troponin I < 0.012 ng/mL (0.01-0.034)
--- NOTE | 2025-01-31 10:30 | DI.CT.S_ITS ---
PROCEDURE: CT ANGIO CHEST PE PROTOCOL INDICATIONS: elevated dimer, tachycardia TECHNIQUE: After the administration of intravenous contrast, 2 mm thick sections acquired from the pulmonary apices to the posterior costophrenic angles. 3-dimensional maximum intensity projection (MIP) coronal and sagittal reformats were then acquired through the thorax. For radiation dose reduction, the following was used: automated exposure control, adjustment of mA and/or kV according to patient size. COMPARISON: [facility], CT, CT ANGIO CHEST PE PROTOCOL, 12/03/2021, 14:29. FINDINGS: Image quality: Diagnostic. Pulmonary arteries: Pulmonary arteries are normal in size, and demonstrate no intraluminal filling defects to suggest central pulmonary embolism. Lower Neck: No enlarged lymph nodes. Thyroid: No thyroid nodules which require sonographic follow up, per consensus guidelines. Axillae: No enlarged lymph nodes. Chest Wall: Unremarkable. Bones: Mild S-shaped thoracolumbar scoliotic curvature. Anterior wedging of midthoracic vertebral bodies results in mild increased thoracic kyphosis.. Lungs and Pleura: No pneumothorax or pleural effusions. No consolidation or suspicious nodules. Heart: Left atrial enlargement. No pericardial effusion. Thoracic Vessels: No aortic aneurysm. Mediastinum and Noreen: No enlarged lymph nodes. Esophagus: No wall thickening. No hiatal hernia. Upper Abdomen: Visualized upper abdomen solid organs and bowel loops appear normal. IMPRESSION: No pulmonary embolus. No acute pulmonary process. Note made of left atrial enlargement. Dictated by: Leonidas Lainez M.D. on 01/31/2025 at 11:10 Approved by: Leonidas Lainez M.D. on 01/31/2025 at 11:13
[2025-01-31 12:04] LABS: Troponin I < 0.012 ng/mL (0.01-0.034)
--- NOTE | 2025-01-31 12:14 | EKG_ITS ---
[place] [address] [place] [address] Test Date: 2025-01-31 Pat Name: Trini Diaz Department[facility] Room: Gender: Female Manager Of Security: SEBASTIÁN : 1955 Requested By: Order Number: [id number] Reading MD: Phani Savage MD Measurements Intervals [place] Rate: 72 P: 51 ME: 166 QRS: -20 QRSD: 96 T: 27 QT: 404 QTc: 442 Interpretive Statements Normal sinus rhythm Electronically Signed On 02-02-2025 8:11:04 PST by Phani Savage MD
== END 2025-01-31 12:49 | disposition home or self-care (01) ==
PROVIDERS: Emergency Provider Emergency Medicine
DX: R00.2 Palpitations (principal); I10 Essential (primary) hypertension
CPT/HCPCS: 36415; 71045; 71275; 80053; 81003; 83690; 83735; 83880; 84484; 85025; 85379; 93005; 96360; 96361; 99284; J7030; Q9967